=== PATIENT | male | born 1950 | race Caucasian/White ===

== ENCOUNTER 2019-12-22 10:14 | Outpatient (CLI) | payer MEDICARE, SELFPAY ==
--- NOTE | ~2019-12-22 | CT_ITS ---
EXAMINATION: CT lung screening EXAM DATE: 12/22/2019 10:32 INDICATION: Personal history of nicotine dependence. TECHNIQUE: Spiral low dose CT of the chest without contrast. Axial, coronal and sagittal images were reviewed. The dose-length product (DLP) for this examination was 138.63 mGy-cm. The exposure was t ailored according to patient size (auto mA exposure control), and iterative reconstruction (ASIR) was used as additional dose reduction technique. Comparison is made to prior examination from 12/25/2018. FINDINGS: There is moderate emphysema and hyperinflation. Scattered small pleural-based opacities ar e unchanged. No suspicious pulmonary nodules. Tracheobronchial tree is patent. There is no mediast inal, hilar or axillary lymphadenopathy. There are no pleural or pericardial effusions. There is no pneumothorax. Heart normal in size. There is moderate coronary arterial calcification, arteria l sclerosis. Upper abdomen is unremarkable. There is thoracic spondylosis without osteoblastic or o steolytic lesions identified. IMPRESSION: Lung-RADS category 2, benign appearance or behavior (<1% chance of malignancy); recommend continued LDCT screening in 1 year. > Reviewed, dictated and finalized at location A.
== END 2019-12-22 10:15 | disposition home or self-care (01) ==
LOC: ANHIMG 10:16
PROVIDERS: PCP Family Medicine; Visit Provider Family Medicine
DX: Z12.2 Encounter for screening for malignant neoplasm of respiratory organs (principal); Z87.891 Personal history of nicotine dependence
CPT/HCPCS: G0297

== ENCOUNTER 2021-03-23 09:35 | Outpatient (CLI) | payer MEDICARE, SELFPAY ==
[2021-03-23 10:19] LABS: Basophils Absolute Auto 0.1 K/mm3 (0.0-0.1); Basophils Percent Auto 1.1 % (0.2-1.2); Eosinophils Absolute Auto 0.4 K/mm3 (0-0.3); Eosinophils Percent Auto 4.4 % (0-4.4); Hematocrit 47.5 % (42.0-52.0); Hemoglobin 15.9 g/dL (14.0-18.0); Immature Granulocyte Absolute 0.04 K/mm3 (0.00-0.031); Immature Granulocyte Percent A 0.4 % (0-0.5); Lymphocytes Absolute Auto 1.95 K/mm3 (0.9-3.2); Lymphocytes Percent Auto 21.9 % (18.3-44.2); Mean Corpuscular HGB Conc 33.5 g/dl (32-36); Mean Corpuscular Hemoglobin 32.1 pg (26-34); Mean Platelet Volume 9.6 fl (7.4-10.4); Monocytes Absolute Auto 0.8 K/mm3 (0.1-0.6); Monocytes Percent Auto 9.1 % (2.6-8.5); Neutrophils Absolute Auto 5.6 K/mm3 (1.3-6.7); Neutrophils Percent Auto 63.1 % (45.5-73.1); Platelet Count Result 316 k/mm3 (150-375); Red Blood Count 4.95 M/mm3 (4.6-6.20); Red Cell Distribution Width 13.8 % (11.5-14.5); White Blood Count 8.9 K/mm3 (4.5-10.0)
[2021-03-23 10:33] LABS: Alanine Aminotransferase 26 U/L (4-50); Alkaline Phosphatase 86 U/L (38-126); Anion Gap 5 mmol/L (8-16); Aspartate Amino Transferase 26 U/L (17-59); Bilirubin,Total 0.7 mg/dL (0.2-1.3); Blood Urea Nitrogen 21 mg/dL (9-20); Calcium 9.2 mg/dL (8.4-10.2); Carbon Dioxide 29 mmol/L (22-30); Chloride 106 mmol/L (98-107); Cholesterol 187 mg/dL (0-200); Estimated Glomerular Filt Rate > 60; Glucose 106 mg/dL (65-110); HDL Direct 46 mg/dL; Potassium 4.3 mmol/L (3.4-5.0); Sodium 140 mmol/L (137-145); Triglycerides 63 mg/dL (<150)
[2021-03-23 10:46] LABS: LDL Cholesterol Direct 121 mg/dL
[2021-03-23 11:38] LABS: Vitamin D 25 Hydroxy 34.6 ng/mL
[2021-03-23 11:57] LABS: Creatinine Urine 290.4 mg/dL
[2021-03-23 12:00] LABS: MALB Creatinine Ratio 26.8 mg/g (0-30); Microalbumin Urine Random 77.9 mg/L (0-16.7)
== END 2021-03-23 09:36 | disposition home or self-care (01) ==
LOC: ANHLAB 09:40
PROVIDERS: PCP Family Medicine; Visit Provider Nurse Practitioner Family
DX: J44.9 Chronic obstructive pulmonary disease, unspecified (principal); E55.9 Vitamin D deficiency, unspecified; R80.9 Proteinuria, unspecified; Z13.6 Encounter for screening for cardiovascular disorders
CPT/HCPCS: 36415; 80053; 80061; 82043; 82306; 85025

== ENCOUNTER 2022-10-07 16:34 | Emergency (ER) | payer MEDICARE, SELFPAY ==
--- NOTE | ~2022-10-07 | XR_ITS ---
EXAMINATION: XR chest 2V Exam Date/Time: 10/07/2022 16:52 CDT HISTORY: wheezing, copd, 4 day productive cough Comparison: 11/11/2018. RESULT: Lines, tubes, and devices: None. Lungs and pleura: No effusion, pneumothorax, or focal consolidation. Stable mild diffuse reticulonod ular opacities. Hyperinflation. Cardiomediastinal silhouette: Stable. Other: No acute osseous or upper abdominal finding. IMPRESSION: Pulmonary opacities may represent mild bronchiolitis, as can be seen with atypical infection, asthma, aspiration, and small airways disease. Emphysematous change. Reviewed, dictated and finalized at location K. IMPRESSION: Pulmonary opacities may represent mild bronchiolitis, as can be seen with atypi mariia infection, asthma, aspiration, and small airways disease. Emphysematous ruddy nge.
[2022-10-07 16:45] VITALS: BP 137/53; PULSE 82; RESP 16; TEMP 37.4; O2SAT 96
[2022-10-07 16:46] VITALS: BP 137/53; PULSE 82; RESP 16; TEMP 37.4; O2SAT 96
--- NOTE | 2022-10-07 16:52 | ED.URI ---
HPI - URI/Sore Throat General Chief Complaint: Upper Respiratory Infection Stated Complaint: congestion; productive cough Time Seen by Provider: 10/07/22 16:58 Source: patient Mode of arrival: ambulatory Limitations: no limitations History of Present Illness HPI Narrative: 71 y/o male with hx COPD presented for c/o productive cough for 3 days. States his chest is congested and he can hear lung sounds. He traveled to [place] at the onset of symptoms, and returned home today. While out of town, he took Mucinex DM as advised by the pharmacist. Denies dizziness, sob, chest pain, n/v/d/f/c. Patient quit smoking 1 month ago, was 1/2ppd. Related Data Home Medications Medication Instructions Recorded Confirmed albuterol sulfate 90 mcg/actuation inhalation 10/07/22 10/07/22 aerosol inhaler amlodipine 10 mg tablet mg 10/07/22 fluticasone fur. 100 mcg-umeclid inhalation 10/07/22 62.5 mcg-vilant 25 mcg inhalat.powder (Trelegy Ellipta) Allergies Allergy/AdvReac Type Severity Reaction Status Date / Time No Known Allergies Allergy Verified 10/07/22 16:46 Review of Systems Review of Systems: CONSTITUTIONAL: Denies body aches, fever, chills, or sweats. EYES: Denies visual changes, redness, or discharge. ENT: Denies rhinorrhea, congestion, sore throat, or otalgia. CARDIOVASCULAR: Denies chest pain, palpitations, or edema. RESPIRATORY: Reports cough, wheezing. GASTROINTESTINAL: Denies abdominal pain, nausea, vomiting, or diarrhea. GENITOURINARY: Denies dysuria or hematuria. SKIN: Denies rash, itching, or wounds. MUSCULOSKELETAL: Denies back pain, joint pain, or myalgia. NEUROLOGIC: Denies headache, numbness, tingling, or weakness. PSYCH: Denies depression or anxiety. All systems reviewed & are unremarkable except as noted in HPI and below PMFSH Past Medical History Medical History (Updated 10/07/22 @ 17:19 by Barbara Jordan APRN) COPD (chronic obstructive pulmonary disease) Family History Family History Sibling Cancer Cerebrovascular accident Social History Social History Smoking status: Current every day smoker Tobacco type: cigarettes Alcohol intake: never Substance use: never Substance use type: does not use Comments At time of signature, I have reviewed and agree with nursing past medical, surgical, social and family history unless otherwise noted. Please see nursing chart for further information. There is no relevant family history pertinent to the presenting complaint Exam Narrative: GENERAL: Well-appearing, in no acute distress. EYES: EOMI. No redness or drainage. Conjunctivae normal. ENT: Mucous membranes pink and moist. No rhinorrhea. TMs normal bilaterally. Throat normal. Uvula midline. NECK: Normal AROM. Supple. CHEST: No respiratory distress; speaks full sentences Coarse lungs to all thompson and audible crackles HEART: Regular rate and rhythm. No murmur appreciated. ABDOMEN: Soft, nontender, nondistended, normal active bowel sounds. EXTREMITIES: Normal range of motion. No edema. SKIN: Warm, dry, no rash. Capillary refill normal. Normal skin turgor. NEURO: Alert and oriented x3. Gait steady. PSYCH: Normal affect. Course Course Emergency Course: Patient is aware of diagnosis, understands and agrees to treatment plan. Anticipatory guidance given. Patient agrees to follow-up as directed and is aware of reasons to seek care at the emergency department. Portions of this record may have been created with voice recognition software Level of Care: Express Care Visit Vital Signs Vital signs: Vital Signs Temperature 99.3 F 10/07/22 16:45 Pulse Rate 82 10/07/22 16:45 Respiratory Rate 16 10/07/22 16:45 Blood Pressure 137/53 L 10/07/22 16:45 Pulse Oximetry 96 10/07/22 16:45 Oxygen Delivery Room Air 10/07/22 16:45 Temp
== END 2022-10-07 17:23 | disposition home or self-care (01) ==
PROVIDERS: Emergency Provider Nurse Practitioner Family; PCP Family Medicine
DX: R05.1 Acute cough (principal); J44.9 Chronic obstructive pulmonary disease, unspecified; Z87.891 Personal history of nicotine dependence
CPT/HCPCS: 71046; 99213; G0463

== ENCOUNTER 2022-10-30 13:07 | Inpatient (IN) | payer MEDICARE, SELFPAY ==
[2022-10-30] VITALS (70 sets, daily range): BP systolic 55–208; BP diastolic 17–130; PULSE 47–135; RESP 14–49; TEMP 34.1–35.1; O2SAT 66–100; BMI 25.7
--- NOTE | ~2022-10-30 | XR_ITS ---
EXAMINATION: XR chest ET placement INDICATION: Endotracheal tube placement TECHNIQUE: Portable AP chest at 1645 hours COMPARISON: 10/29/2022 FINDINGS: The endotracheal tube ends approximately 10 mm above the rubin. The nasogastric tube is fo llowed as far as the stomach. Its tip is beyond the inferior margin of the radiograph. Patchy bilater al interstitial opacities persist but have improved. No pleural effusion or pneumothorax. The cardiom ediastinal silhouette is normal. IMPRESSION: 1. Endotracheal tube approximately 10 mm above the rubin. Consider repositioning. 2. Mild pulmonary edema with interval improvement. Reviewed, dictated and finalized at location F. IMPRESSION: 1. Endotracheal tube approximately 10 mm above the rubin. Consider repositioni ng. 2. Mild pulmonary edema with interval improvement.
--- NOTE | ~2022-10-30 | XR_ITS ---
Portable chest x-ray Comparison: 10/30/2022 Clinical History: Chest tube placement Findings: Endotracheal tube, NG tube, and left-sided chest tube are in place. Previously noted left pneumothorax appears essentially completely resolved. Mild interstitial prominence noted in the lungs . No pleural effusion. Cardiomediastinal silhouette is stable. Bones and soft tissues are unremarkab le. Impression: Support tubes in place, as above. Left lung is completely reexpanded. No visible pneumothorax at this time. Probable mild chronic interstitial disease or COPD. Reviewed, dictated and finalized at location . Impression: Support tubes in place, as above. Left lung is completely reexpanded. No visible pneumothorax at this time. Probable mild chronic interstitial disease or COPD.
--- NOTE | ~2022-10-30 | XR_ITS ---
XR chest 1V portable DATE: 10/30/2022 14:00 INDICATION: STEMI TECHNIQUE: Portable supine AP chest on 10/30/2022 at 1355 hours COMPARISON: 10/07/2022 2 view chest FINDINGS: Heart size is normal. There is pulmonary vascular congestion and redistribution. There is p rominence of the minor fissure suggesting subpleural edema. There are diffuse bilateral pulmonary inf iltrates which may be due to pulmonary edema or pneumonia. No pneumothorax. There is minimal if any pleural effusion. Aortic calcification. IMPRESSION: Diffuse bilateral pulmonary infiltrates and prominence of the minor fissure, in addition to pulmonary vascular congestion or redistribution, suggesting pulmonary alveolar and subpleural qamar a Reviewed, dictated and finalized at location B. IMPRESSION: Diffuse bilateral pulmonary infiltrates and prominence of the minor fissure, in addition to pulmonary vascular congestion or redistribution, sugge sting pulmonary alveolar and subpleural edema
--- NOTE | ~2022-10-30 | XR_ITS ---
EXAMINATION: XR abdomen NG/feed tube insert INDICATION: OG placement TECHNIQUE: Portable AP KUB-NG at 1446 hours COMPARISON: None available FINDINGS: The OG tube into the stomach which is mildly distended. The lung bases are clear. IMPRESSION: 1. OG tube in the mildly distended stomach. Reviewed, dictated and finalized at location F.
--- NOTE | ~2022-10-30 | XR_ITS ---
EXAMINATION: XR chest ET placement INDICATION: Endotracheal tube repositioning TECHNIQUE: Portable AP chest at 1856 hours COMPARISON: 1645 hours FINDINGS: The tip of the nasogastric tube is at the origin of the right mainstem bronchus. There is a new, small left pneumothorax. There has been interval development of subcutaneous emphysema of the l eft chest wall. Mild pulmonary edema persists without significant change. The heart size is normal. IMPRESSION: 1. Tip of the nasogastric tube in the origin of the right mainstem bronchus. Recommend withdrawing 3 cm. 2. Small left pneumothorax, new. 3. Subcutaneous emphysema of the left chest wall. These findings were discussed with DAVON Luna in the ICU at 1928 hours on 10/30/2022. Reviewed, dictated and finalized at location F. IMPRESSION: 1. Tip of the nasogastric tube in the origin of the right mainstem bronchus. Re commend withdrawing 3 cm. 2. Small left pneumothorax, new. 3. Subcutaneous emphysema of the left chest wall. These findings were discussed with DAVON Luna in the ICU at 1928 hours on 10/31/19 23.
--- NOTE | 2022-10-30 13:07 | ECG_ITS ---
Measurements Intervals [place] Rate: 73 P: 64 RI: 252 QRS: -56 QRSD: 99 T: -54 QT: 426 QTc: 472 Interpretive Statements SINUS RHYTHM WITH FIRST DEGREE AV BLOCK LOW QRS VOLTAGE IN EXTREMITY LEADS [QRS DEFLECTION < 0.5 mV IN LIMB LEADS] ACUTE INFERIOR STEMI COMPARED TO ECG 11/11/2018 00:34:40 SINUS RHYTHM NOW PRESENT ACUTE MO NOW PRESENT Electronically Signed On 10-31-2022 14:07:45 CDT by Kiran Breaux M.D.
--- NOTE | 2022-10-30 13:11 | PM.IMHP ---
H&P: HPI History of Present Illness Date/Time: 10/30/22 13:11 Chief Complaint: chest pain Narrative: this is a 71-year-old man who I am seeing very quickly as he is being prepared for emergency coronary angiography in the setting of acute inferior wall ST-elevation NV. The patient was at his home of [place] and I think a short time ago proper prior to arrival here started to experience retrosternal chest pressure. 911 was called to his home. ECG in the field was clearly diagnostic of acute inferior wall current of injury and emergency STEMI was activated. I reviewed the electrocardiogram in the emergency room and authorized direct transfer from ambulance to the cardiac catheterization lab. In the cardiac catheterization lab he is reporting moderate pressure-like central chest pain as he is being prepared for emergency angiography. He reports no previous history of cardiac problems. He does take medication for hypertension any does have COPD because of cigarette smoking. Review of Systems Review of Systems: ROS unobtainable: Yes unobtainable due to medical condition PMFSH Past Medical History Medical History (Updated 10/30/22 @ 13:16 by Trent Calixto MD) COPD (chronic obstructive pulmonary disease) Family History Family History Sibling Cancer Cerebrovascular accident Social History Social History Smoking status: Current every day smoker Tobacco type: cigarettes Alcohol intake: never Substance use: never Substance use type: does not use Meds Home Medications and Allergies Home Medications Medication Instructions Recorded Confirmed Type albuterol sulfate 90 mcg/actuation inhalation 10/07/22 10/07/22 History aerosol inhaler amlodipine 10 mg tablet mg 10/07/22 History fluticasone fur. 100 mcg-umeclid inhalation 10/07/22 History 62.5 mcg-vilant 25 mcg inhalat.powder (Trelegy Ellipta) levofloxacin 750 mg tablet 750 mg PO DAILY #7 tabs 10/07/22 Rx methylprednisolone 4 mg tablets in See Rx Instructions PO .COMPLEX 10/07/22 Rx a dose pack (Medrol (Jaguar)) #21 ea Allergies Allergy/AdvReac Type Severity Reaction Status Date / Time No Known Allergies Allergy Verified 10/07/22 16:46 Exam Const: Other: Well-developed well-nourished white male appearing his stated age moderate distress with chest pain HENMT: Mouth: Yes moist mucous membranes Eyes: Sclera: sclerae normal Pupils: Equal, round and reactive pupils present Neck: Neck: supple and no JVD Thyroid: thyroid normal Other: carotid pulses are intact bilaterally no bruits are audible over the neck Resp: Effort & Inspection: normal respiratory effort Auscultation: clear to auscultation bilaterally Cardio: Rate: regular rate Rhythm: regular rhythm Other: no murmur no gallop no rub GI: GI Palp: Yes Soft to palpation Auscultation: normal bowel sounds Skin: General skin exam: normal color Extrem: General: normal to inspection Other: normal perfusion, no edema Assessment and Plan Assessment and plan (1) STEMI (ST elevation myocardial infarction): Code(s): I21.3 - ST elevation (STEMI) myocardial infarction of unspecified site Status: Acute Plan 71-year-old man without previous cardiac history presents with chest pain and acute inferior ST-elevation NV. Plans are now being made for emergency angiography and revascularization as indicated by the findings Trent Calixto MD [facility]
[2022-10-30 13:12] LABS: Hematocrit 40.2 % (42.0-52.0); Hemoglobin 13.3 g/dL (14.0-18.0); Mean Corpuscular HGB Conc 33.1 g/dl (32-36); Mean Corpuscular Volume 93.7 fl (80-100); Mean Platelet Volume 9.5 fl (7.4-10.4); Platelet Count Result 380 k/mm3 (150-375); Red Blood Count 4.29 M/mm3 (4.6-6.20); Red Cell Distribution Width 13.6 % (11.5-14.5); White Blood Count 11.8 K/mm3 (4.5-10.0)
--- NOTE | 2022-10-30 13:17 | WPDCARDPROC ---
Cardiac Cath Procedure Note Date of procedure:: 10/30/22 Performing physician:: Trent Calixto MD Indication:: acute inferior wall UT Brief clinical history:: this is a 71-year-old man with no previous cardiac history. He does have COPD and hypertension. The patient began to experience chest pain at home a short time ago and ECG in the field done by EMS was diagnostic of acute inferior wall current of injury. In this setting emergency angiography has been recommended he was taken directly from the ambulance to the cardiac catheterization lab Procedure Procedure performed:: emergency coronary angiography emergency PCI(SERVANDO) to the right coronary artery left ventriculogram Sedation/Medication given:: fentanyl 25 mg Versed 2 mg case start time 12 30 p.m. case end time 12:57 p.m. sedation provided by Deobrah Regalado RN, trained observer Access site:: right femoral artery Estimated blood loss:: 20 cc Procedure note:: patient was brought to the cardiac catheterization lab in the emergency setting described above. The right femoral triangle was prepared and draped in the usual fashion. Anesthesia was provided with 1% lidocaine infiltrated locally. Using the modified Seldinger technique the femoral artery was punctured and a 6 Israeli vascular sheath was placed. I then used a 5 Israeli FL4 diagnostic catheter to engage inject the left coronary artery in multiple projections. Following this the right coronary artery was engaged and injected using a 6 Israeli JR4 guiding catheter. Following this the cineangiograms were then reviewed and PCI of the occluded right coronary artery was recommended and carried out as detailed below. Prior to PCI the patient did receive 180 mg of p.o. Brilinta. Immediately after restoring flow in the occluded right coronary artery the patient did become nauseated and vomit after which he also developed ventricular fibrillation which had to be terminated by electrical cardioversion. PCI was then completed as detailed below. Following this the guiding catheter guidewire and balloon was removed and a 5 Israeli angled pigtail catheter was used to measure left-sided hemodynamics and to inject left ventriculogram in the LARA projection. Following this the sheath was sutured into position and plans are made for transfer to the patient to the ICU for post UT PCI recovery. Prior to leaving the cardiac catheterization lab the patient developed ventricular fibrillation twice and sustained ventricular tachycardia once requiring 3 additional cardioversions. IV amiodarone was started with a bolus of 150 mg with the intention to starting the amiodarone drip down stairs. The patient also received 5 mg of IV metoprolol and 100 mg of IV lidocaine IV push. The patient was awake alert conversant not reporting any significant chest pain at the end of the procedure despite the significant ventricular irritability detailed above. Other than the arrhythmias the procedure was uncomplicated. Findings:: Hemodynamics: Central aortic pressure is 124 over 56 left ventricle 124/5 end-diastolic pressure 14 there was no gradient across the aortic valve noted upon pullback. Left ventricle: The left ventricle is normal in size. During the LV-gram there was significant ventricular irritability during the sinus beats contractility looks to be well preserved in all segments with mild inferior hypokinesia but overall good ejection fraction of 60%. The left main coronary artery is nicely patent the left anterior descending is a moderate to large caliber artery extending down to around the apex. There is mild plaquing in the mid LAD but representing no more than about 20-30% stenosis. The circumflex is a medium caliber vessel giving rise to several marginal branches. There is a discrete high-grade 95% stenosis between the 1st and 2nd marginal branches. There was URVASHI 3 flow in the circumflex however. The right coron
[2022-10-30 13:19] LABS: Alanine Aminotransferase 28 U/L (6-50); Albumin Level 3.9 g/dL (3.5-5.1); Alkaline Phosphatase 109 U/L (38-126); Anion Gap 6 mmol/L (8-16); Aspartate Amino Transferase 25 U/L (17-59); Bilirubin,Total 0.5 mg/dL (0.2-1.3); Blood Urea Nitrogen 21 mg/dL (9-20); Calcium 8.7 mg/dL (8.4-10.2); Carbon Dioxide 27 mmol/L (22-30); Chloride 104 mmol/L (98-107); Cholesterol 172 mg/dL (0-200); Estimated Glomerular Filt Rate > 60; Glucose 152 mg/dL (65-110); HDL Direct 41 mg/dL; Potassium 3.9 mmol/L (3.4-5.0); Sodium 137 mmol/L (137-145); Triglycerides 68 mg/dL (<150)
[2022-10-30 13:30] LABS: LDL Cholesterol Direct 115 mg/dL
[2022-10-30 13:37] LABS: Magnesium 1.9 mg/dL (1.6-2.3)
--- NOTE | 2022-10-30 13:39 | ADMIMU ---
This patient, Hoang Marinelli, was admitted to IMU status, and placed in Intensive Care Unit-5. Patient/family oriented to hospital policies and general routines including ID bracelet, bed and alarms, visiting hours, pain management, procedures, bathroom and other care routines, personal items, smoking policy, room service/diet, and visiting hours. Valuables list has been completed. Information on how to activate the Rapid Response Team has been discussed. Patient/Family are encouraged to report perceived risks to care and to ask questions if they do not understand what they are told or what they should do.
[2022-10-30] MEDS: SODIUM CHLORIDE 0.9% IV 500 ML 999 ML IV CONT ×2 (13:40→22:28)
[2022-10-30] MEDS: AMIODARONE 360 MG/D5W 200 ML 360 MG/200 ML BAG 33.33 MG IV CONT (13:40)
--- NOTE | 2022-10-30 13:40 | WPDCNINT ---
Assessment and Plan Assessment and plan (1) STEMI (ST elevation myocardial infarction): Code(s): I21.3 - ST elevation (STEMI) myocardial infarction of unspecified site Status: Acute Assessment and Plan: 10/30/2022: Patient presented to the ED with complaints of substernal chest pain, was taken directly to the cardiac brush clearing laborer where he had a PTCA/PCI with SERVANDO x1 to mid RCA. Patient also has a high-grade 95% stenosis in the circumflex between the 1st and 2nd marginal branches. Mild inferior hypokinesia with overall good ejection fraction of 60%. - Postprocedure patient had a VFib arrest, was defibrillated x1.? He given to monomorphic VT which resolved before any intervention.? I went up brush clearing laborer to assess the patient, he again had a VFib arrest and was defibrillated with sinus rhythm.? Patient was started on amiodarone bolus, received metoprolol 5 mg IV x1 and lidocaine 100 mg IV x1.? -continue aspirin, metoprolol, rosuvastatin, ticagrelor -cardiology following the patient -patient is on amiodarone infusion for the VFib and V-tach episodes likely secondary to reperfusion injury -continue to monitor in ICU (2) COPD (chronic obstructive pulmonary disease): Code(s): J44.9 - Chronic obstructive pulmonary disease, unspecified Status: Acute Assessment and Plan: Patient has a history of COPD likely secondary to history of tobacco use -will start Xopenex, Atrovent -continue Trelegy Ellipta nebulizers, which he takes at home (3) Essential hypertension: Code(s): I10 - Essential (primary) hypertension Status: Acute Assessment and Plan: Continue metoprolol (4) Tobacco use: Code(s): Z72.0 - Tobacco use Status: Acute Assessment and Plan: Discussed with patient regarding tobacco cessation (5) Ventricular fibrillation: Code(s): I49.01 - Ventricular fibrillation Status: Acute Assessment and Plan: Patient had episodes of VFib and monomorphic V-tach post cardiac catheterization, received cardioversion x2, amiodarone bolus, lidocaine 100 mg IV x1 and metoprolol 5 mg IV x1. -continue amiodarone infusion -discussed with cardiology. Plan DVT prophylaxis: Patient status post cardiac catheterization Stress ulcer prophylaxis: Not indicated Nutrition: Heart healthy diet Code Status: Full code Critical Care Time Spent: 49 minutes Due to a high probability of clinically significant, life threatening deterioration, the patient required my highest level of preparedness to intervene emergently and I personally spent this critical care time directly and personally managing the patient. This critical care time included obtaining a history; examining the patient; pulse oximetry; ordering and review of studies; arranging urgent treatment with development of a management plan; evaluation of patient's response to treatment; frequent reassessment; and discussions with other providers. It was exclusive of separately billable procedures and treating other patients and teaching time. Please see Assessment and Plan section and the rest of the note for further information on patient assessment and treatment This dictation may have been done utilizing a voice recognition system. Attempts have been made to correct errors. However, there may be uncorrected grammatical, spelling, and recognitions errors present. Director Of Solutions Architecture Consult Note Consult date: 10/30/22 Reason for consult: Acute inferior ST-elevation [place] status post SERVANDO x1 to mid RCA. Patient also has a high-grade 95% stenosis in the circumflex between the 1st and the 2nd marginal branches. Mild inferior hypokinesia with overall good ejection fraction of 60% HPI: Hoang Marinelli is a 71 year old male with history of essential hypertension, tobacco abuse, COPD presented the ED on 10/30/2022 with complains of substernal chest pain/pressure short time prior to arrival. 911 was called, EKG in the field was diagnostic of acute inf
--- NOTE | 2022-10-30 14:08 | ADMGEN ---
This patient, Hoang Marinelli, was admitted to Intensive Care Unit-5. Patient/family oriented to hospital policies and general routines including ID bracelet, bed and alarms, visiting hours, pain management, procedures, bathroom and other care routines, personal items, smoking policy, room service/diet, and visiting hours. Information on how to activate the Rapid Response Team has been discussed. Patient/Family are encouraged to report perceived risks to care and to ask questions if they do not understand what they are told or what they should do.
[2022-10-30] MEDS: SODIUM CHLORIDE 0.9% IV 1,000 ML 125 ML IV CONT (14:16)
[2022-10-30] MEDS: MAGNESIUM SULF 2 GM/WATER 50ML 2 GM/50 ML BAG IVPB (14:17)
[2022-10-30] MEDS: IPRATROPIUM BR 0.02% INH SOLN 0.5 MG/2.5 ML VIAL INHALATION (14:51)
[2022-10-30] MEDS: LEVALBUTEROL NEB 1.25 MG/3 ML INHALATION (14:51)
--- NOTE | 2022-10-30 16:35 | PC.NURSE ---
Pt's heart rhythm noticed on patient monitor by RN to be T[employer]. This RN, ore charger and another RN to room. Pt shocked once with 200j and rhythm changed to Vfib. Code Blue called. See code sheet.
--- NOTE | 2022-10-30 16:45 | PC.NURSE ---
Pt to incinerator plant laborer post code. Pt intubated at this time
--- NOTE | 2022-10-30 16:51 | P.PCNBED_ITS ---
Procedures Intubation Intubation Date: 10/30/22 Intubation Time: 16:28 Sedative: etomidate (20) Paralytic: rocuronium (40) Laryngoscope: fiber optic video scope Assist device used: fiber optic device ET tube size: 7.5 Tube secured depth (cm): 27 Tube secured location: lips Tube placement confirmation: visualized tube passing through cords, equal breath sounds bilaterally, no breath sounds over epigastrium and confirmation by capnometry Patient tolerated procedure: well Intubation complications: none Additional comments: the patient was also given 5 mg of versed prior to intubation as the patient was fighting the staff xray shows that the et tube is 10 mm above the rubin and consider repositioning. the patient coded once again and was taken to the research laboratory technician where he coded again.
[2022-10-30 17:13] LABS: Troponin I 0.943 ng/mL (0.000-0.034)
[2022-10-30] MEDS: EPTIFIBATIDE 0.75 MG/ML 75 MG/100 ML VIAL 12.67 MG IV CONT (18:15)
--- NOTE | 2022-10-30 18:15 | ECG_ITS ---
Measurements Intervals [place] Rate: 126 P: ID: 0 QRS: 10 QRSD: 97 T: -57 QT: 335 QTc: 486 Interpretive Statements PROBABLE ATRIAL FIBRILLATION WITH RAPID VENTRICULAR RESPONSE LOW QRS VOLTAGE [QRS DEFLECTION < 0.5/1.0 mV IN LIMB/CHEST LEADS] POSSIBLE ANTERIOR MYOCARDIAL INFARCTION [30 ms Q WAVE IN V3/V4, OR R < 0.2 mV IN V4], OF INDETERMINATE AGE INFERIOR MYOCARDIAL INFARCTION [40+ ms Q WAVE AND/OR ST/T ABNORMALITY IN II/aVF], PROBABLY RECENT ACUTE [place] INTERPRETATION BASED ON A DEFAULT AGE OF 40 YEARS COMPARED TO ECG 10/30/2022 16:41:06 ATRIAL FIBRILLATION NOW PRESENT Electronically Signed On 10-31-2022 14:09:58 CDT by Kiran Breaux M.D.
--- NOTE | 2022-10-30 18:20 | WPDCARDPROC ---
Cardiac Cath Procedure Note Date of procedure:: 10/30/22 Performing physician:: Trent Calixto MD Indication:: ventricular fibrillation arrest following emergency PCI earlier today Brief clinical history:: this is a 71-year-old man who presented earlier today with acute inferior wall IA. He underwent emergency PCI with drug-eluting stent to the mid RCA with angiographically a good result. Since then he has had several cardiac arrest marked by ventricular fibrillation/ ventricular tachycardia. Most recently he had an arrest which appears to be initiated by polymorphic ventricular tachycardia. He does have recurrent significant inferior ST elevation and for that reason is being brought back for angiographic assessment. Procedure Procedure performed:: Emergency right coronary angiography emergency repeat PCI to right coronary artery including extraction thrombectomy, balloon angioplasty and additional stenting. placement of intra-aortic balloon pump Sedation/Medication given:: No sedation Access site:: existing right femoral artery sheath Estimated blood loss:: 50 cc Procedure note:: patient was brought to the cardiac catheterization lab in the emergent setting described above. The right femoral area was prepped and draped in the sterile fashion. The suture was cut and the previous sheath was exchanged over the guidewire for a clean 6 Qatari arterial sheath. Following this gloves were changed. I used a 5 Qatari JR4 catheter to engage and inject the right coronary artery. It was noted to be totally occluded in the stented segment. Angiographic appearance was that of a abrupt thrombotic occlusion. Following this plans were made for emergency PCI. The diagnostic catheter was exchanged for a JR4 6 Qatari guiding catheter. The RCA was easily traversed using a for BMW wire. I used the penumbra extraction thrombectomy catheter which advanced to the proximal region of the stent but not through the entire stent. This restored URVASHI 1-2 flow in the artery. It obvious there was a good deal of thrombus in the stented area. Following this I redilated the entire area using a 3.5 x 20 mm compliant balloon restoring URVASHI 3 flow into the RCA. Distal to the stent in the 3rd portion of the artery there was smooth high-grade stenosis which was felt to likely be spasm. This persisted during the case despite episcopal of flow in the artery. Because of hypotension/ shock we could not administer nitroglycerin. I then elected to place a 2nd 3.5 x 30 mm Orsiro stent in that segment which resulted in excellent patency. Following this I used the penumbra catheter again to traverse the proximal stent this time with better success and then post dilated the original stent using a 3.75 x 15 mm high-pressure balloon at 18 atmospheres. At the end of the procedure there was good patency with URVASHI 3 flow in the entire right coronary artery restored. The patient received 2 doses of Jean Paul-Synephrine during the procedure for hypotension and is now receiving a bolus of normal saline. Findings:: As above Conclusion:: 1. coronary artery disease with acute inferior wall infarction treated earlier today with stenting of the mid RCA. Patient now has suffered an abrupt stent thrombosis and has just undergone emergency repeat revascularization involving extraction thrombectomy, PTCA larger and then high-pressure balloon as well as additional stenting distal to the original device as detailed above. Because of hypotension/ shock intra-aortic balloon pump was placed at the end of procedure. Patient is receiving large boluses of saline with the concept that RV infarction is playing a role. Prognosis at this time is grave/guarded Trent Calixto MD [facility]
--- NOTE | 2022-10-30 18:54 | PC.NURSE ---
Pt returned from biological lab technician with balloon pump in place
[2022-10-30] MEDS: AMIODARONE 360 MG/D5W 200 ML 360 MG/200 ML BAG 16.67 MG IV CONT (19:00)
[2022-10-30] MEDS: MIDAZOLAM HCL (*CRX) 2 MG/2 ML VIAL IV PUSH ×2 (19:05→20:40)
--- NOTE | 2022-10-30 19:23 | PCRCNOTE ---
RT arrived at code at 1620. RT assisted with intubation. Patient was intubated with size 7.5 ETT at 27 cm at lip. CO2 detected color change, Chest x-ray ordered. ETT palmer placed to secure ETT at 27 cm at lip. Patient placed on vent according to Dr. Izaguirre order, CMV Vt 500, R18, peep 5, 100%, titrate oxygen to keep SpO2 >92%. RN did not detect a pulse, CPR in progress. RT bagged patient via AMBU bag during CPR. RT then assisted patient to Cardiac construction laborer to monitor patient while on the vent. RN did not detect a pulse on patient. RT bagged patient via AMBU bag during CPR. Pulse detected. RT assisted patient back to ICU 5 via vent.
[2022-10-30 19:56] LABS: Alveolar/Arterial O2 Gradient 354.8 mmHg; Base Excess ABG -8.3 mEq/l (+/-2.0); Fractional Inspired Oxygen 100 %; HCO3 ABG 18.8 mEq/l (22.0-26.0); Oxygen Content ABG 17.1 %vol (16.0-22.0); Oxygen Saturation ABG 99.6 % (95.0-100.0); Oxyhemoglobin 98.2 % THb (90.0-100.0); PCO2 ABG 44.6 mmHg (35.0-45.0); PO2 ABG 313.6 mmHg (80.0-100.0); PO2 FiO2 Ratio Arterial Blood 3.14 %; Total Hemoglobin 11.8 g/dL (12.0-18.0)
[2022-10-30 19:57] LABS: Device VENTILATOR; Site Drawn LEFT FEMORAL; pH ABG 7.242 (7.350-7.450)
[2022-10-30 19:58] LABS: Arterial Blood Gas PEEP 5 cmH2O; Arterial Blood Gas Tidal Volume 500 ml; Arterial Blood Gas Vent Mode CMV; Arterial Blood Gas Ventilator rate 18 /MIN
[2022-10-30] MEDS: NOREPINEPHRINE 8 MG/D5W 250 ML 8 MG/250 ML BAG 9.38 MG IV CONT (20:00)
[2022-10-30] MEDS: MIDAZOLAM 100MG/NS 100ML(*CRX) 100 MG/100 ML BAG IV CONT (20:11)
--- NOTE | 2022-10-30 20:23 | WPDPROCEDUR ---
Procedures Central Line Placement Left Femoral: Central Line Date: 10/30/22 Central Line Time: 20:15 Discussed w/ the patient/family/POA,the placement of a central venous catheter, including its clinical necessity/indication & associated potential risks, benifits and alternatives.: Yes The patient/family/POA understand(s) and acknowledge(s) the need to proceed with central venous catheter insertion as an important element of the patient's clinical management.: Yes Consent: I have discussed with the patient and/or surrogate, the non-emergent placement of a central venous catheter, including its clinical necessity/indication and associated potential risks and complications. The patient and/or surrogate understand(s) and acknowledge(s) the need to proceed with central venous catheter insertion as an important element of the patient's clinical management. Time Out Performed: Yes Patient Position: supine Provider Prep: mask and Max. sterile barrier precautions Central line prep: 2% Chlorhexidine scrub Local anesthesia used: lidocaine 1% Amount of anesthesia used (ml): 5 Sterile US Technique with sterile gel/sterile probe covers: Yes Central line lumen inserted: triple Amharic: 7 Length (cm): 16 Depth of Insertion (cm): 16 Post Procedure: sutured in place, good blood return, all ports aspirated, flushed, capped, transparent dressing and hemostatic product Additional comments: no need for x ray as it was femoral
--- NOTE | 2022-10-30 20:25 | PM.CCN ---
Critical Care Event Note Summary Code activated: No Narrative: the patient's bp dropped and the patient needed a central line.the patient was very restless throughout the procedure and needed iv sedation. Dr. Mariano at the bedside . This case had a high probability of a clinically significant, sudden, or life threatening deterioration of this patient's condition which required my full and direct attention, intervention and personal management. Critical care time: less than 30 mins
[2022-10-30 20:41] LABS: Hematocrit 36.1 % (42.0-52.0); Hemoglobin 11.4 g/dL (14.0-18.0); Mean Corpuscular HGB Conc 31.6 g/dl (32-36); Mean Corpuscular Hemoglobin 31.3 pg (26-34); Mean Corpuscular Volume 99.2 fl (80-100); Mean Platelet Volume 9.1 fl (7.4-10.4); Platelet Count Result 308 k/mm3 (150-375); Red Blood Count 3.64 M/mm3 (4.6-6.20); Red Cell Distribution Width 13.8 % (11.5-14.5); White Blood Count 19.4 K/mm3 (4.5-10.0)
[2022-10-30 20:54] LABS: INR 2.2; Prothrombin Time 25.8 Seconds (11.1-14.7)
[2022-10-30] MEDS: PANTOPRAZOLE SODIUM IV 40 MG VIAL IV PUSH (20:58)
[2022-10-30] MEDS: FENTANYL 2,500MCG/NS250ML(*CRX 2,500 MCG/250 ML BAG IV CONT (21:00)
[2022-10-30] MEDS: SODIUM BICARBONATE 8.4% 50 MEQ/50 ML SYRINGE 100 MEQ IV PUSH (21:15)
[2022-10-30 21:16] LABS: Lactic Acid Reflex 3.7 mmol/L (0.7-2.0)
[2022-10-30 21:34] LABS: Alanine Aminotransferase 94 U/L (6-50); Albumin Level 2.8 g/dL (3.5-5.1); Alkaline Phosphatase 80 U/L (38-126); Anion Gap 5 mmol/L (8-16); Aspartate Amino Transferase 294 U/L (17-59); Bilirubin,Total 0.5 mg/dL (0.2-1.3); Blood Urea Nitrogen 21 mg/dL (9-20); Calcium 6.7 mg/dL (8.4-10.2); Carbon Dioxide 27 mmol/L (22-30); Chloride 106 mmol/L (98-107); Estimated CRCL calculation 45 ml/min; Estimated Glomerular Filt Rate 54; Glucose 287 mg/dL (65-110); Magnesium 3.2 mg/dL (1.6-2.3); Potassium 4.3 mmol/L (3.4-5.0); Sodium 138 mmol/L (137-145)
[2022-10-30] MEDS: CALCIUM GLUC 2,000 MG/NS 100ML 2,000 MG/100 ML BAG 100 MG IVPB (22:28)
[2022-10-30] MEDS: CENTRAL LINE FLUSH 10 ML IV PUSH (22:44)
[2022-10-30] MEDS: SODIUM CHLORIDE 0.9% IV 1,000 ML 100 ML IV CONT (23:18)
--- NOTE | 2022-10-30 23:27 | P.OP_ITS ---
Procedures Other Procedures Procedure 1: Other Procedure: At 1628 KYE ROJAS was called in the ICU. The patient had gone into torsades de point and patient was shocked by nursing staff and given epinephrine. Upon my arrival in the ICU. Patient was in V. tach. Patient continued to receive ep inephrine and chest compressions. When compressions were stopped patient was in V-fib and patient was defibrillated into a spontaneous sinus rhythm that was a rate of 60. During the CODE BLUE the patient received 2 mg of magnesium sulfate as well as an amp of bicarb. There is persistent ST elevation and according to the nursing staff this has been constant since being in the ICU. While repeat EKG was being performed I discussed case with Dr. Birmingham to update him on the patient's condition. He was going to call Dr. Calixto and have him come to the ER to evaluate the patient. Patient beginning to wake up and is fighting nursing staff but does not understand what is occurring. Due to critical nature of illness and combativeness patient was given 5 of Versed and then intubated by Elida Griggs SERVICE SUPERVISOR. Please see separate procedure note. Dr. Calixto came to the bedside and is felt patient's symptoms and EKG warrant emergent evaluation Credit Processor. Upon arrival to Credit Processor patient had brief loss of pulses as well but was successfully resuscitated again with compressions. I had a prolonged conversation with the patient's [id number] who is a ICU nurse as well as the patient's . We discussed the critical nature of the patient's condition and Dr. Calixto also participated in this conversation. Please see KYE BLUE sheet for additional details of participants and drugs given. Exam: GENERAL: ill-appearing, well-nourished, unresponsive with chest compressions in progress. HEAD: Normocephalic, atraumatic. ENT: Mucous membranes moist. NECK: Supple. CHEST: No spontaneous respiratory effort upon initial evaluation patient being bagged with clear breath sounds bilaterally.. HEART: Pulseless with palpable central pulses during CPR. ABDOMEN: Soft, nontender, nondistended. EXTREMITIES: No deformity of the extremities. There is a femoral sheath still connected to the right groin. SKIN: Warm, dry, no rash. NEURO: Unresponsive upon initial exam. Care: 60 minutes of critical care was provided and did not include procedures performed. Diagnosis: Cardiopulmonary arrest, STEMI, torsades the point, V-fib arrest Patient michael in the ICU in critical condition.
[2022-10-30 23:37] LABS: Reflex Lactic Acid Yes or No Add Lactic
[2022-10-31] VITALS (63 sets, daily range): BP systolic 80–121; BP diastolic 53–88; PULSE 70–105; RESP 12–28; TEMP 35.3–37.2; O2SAT 94–100
--- NOTE | 2022-10-31 | ECHOL_ITS ---
Patient Info Name: Hoang Marinelli Age: 71 years : 1950 Gender: Male Ht: 69 in Wt: 188 lbs BSA: 2.05 m2 HR: 104 bpm BP: 106 / 63 mmHg Heart Rhythm: Tachycardia Technical Quality: Fair Exam Date: 10/31/2022 8:56 AM Exam Location: [facility] Patient Status: Inpatient Admit Date: 10/30/2022 Staff Ordering Physician: Paul Dempsey MD Calibration Technician: Mark Marshall RDCS Attending Provider: Trent Calixto MD Exam Type: CA echo limited Study Info Indications - CARDIAC ARREST Limited two-dimensional transthoracic echocardiogram is performed. Summary 1. A limited study was done. 2. Left ventricular chamber dimension is normal. 3. Left ventricular systolic function appears to be mildly reduced, estimated at 40-45%. 4. Right ventricular chamber dimension is normal. 5. Right ventricular systolic function is reduced. 6. There is trivial pericardial effusion. Recommendations * Recommend a complete study for better evaluation of left and right ventricular systolic function and for assessment of valves. Left Ventricle Left ventricular chamber dimension is normal. Left ventricular systolic function appears to be mildly reduced, estimated at 40-45%. Right Ventricle Right ventricular chamber dimension is normal. Right ventricular systolic function is reduced. Left Atria Left atrial chamber dimension is normal. Right Atria Right atrial chamber dimension is normal. Atrial Septum Interatrial septum not well visualized. Aortic Valve The aortic valve is not well visualized. Pulmonic Valve The pulmonic valve is not well visualized. Mitral Valve The mitral valve has not well visualized. Tricuspid Valve There is trace tricuspid valve regurgitation. Pericardium/Pleural There is trivial pericardial effusion. Inferior Vena Cava Normal inferior vena cava with <50% collapse upon inspiration consistent with elevated right atrial pressure, 8 mmHg. Aorta The aortic root is not well visualized. Tricuspid Valve Name Value Normal Estimated PAP/RSVP RA Pressure 8 mmHg <=5 Report Signatures
[2022-10-31] MEDS: EPTIFIBATIDE 0.75 MG/ML 75 MG/100 ML VIAL 12.67 MG IV CONT ×2 (00:13→08:02)
[2022-10-31] MEDS: MINERAL OIL/WHITE PETROLATUM OINTMENT 1 APPLIC EACH EYE ×2 (00:19→08:01)
--- NOTE | 2022-10-31 00:24 | PM.CNGS ---
Assessment and Plan Assessment and plan (1) Pneumothorax: Code(s): J93.9 - Pneumothorax, unspecified Status: Acute Assessment and Plan: discussed with family emergent placement of left-sided chest tube, they wished to proceed at this time proceed with procedure at bedside (2) STEMI (ST elevation myocardial infarction): Code(s): I21.3 - ST elevation (STEMI) myocardial infarction of unspecified site Status: Acute Assessment and Plan: has coded twice today, now with balloon pump, management per ICU team and Cardiology History of Present Illness Consult details Consult date: 10/31/22 Reason for consult: chest tube Requesting physician: Kb Birmingham MD Narrative: The patient is a 71-year-old male that is critically ill in the ICU currently intubated and sedated. The patient apparently has coded multiple times today and has had of urgent cardiac catheterization x2. Patient is currently on pressors and is critically ill. Surgery has been consulted because of a left pneumothorax. I did discuss placement of chest tube with the patient's family and they wished to proceed. Review of Systems Review of Systems: ROS unobtainable: Yes unobtainable due to endotracheal tube and unobtainable due to medical condition PMFSH Past Medical History Medical History COPD (chronic obstructive pulmonary disease) Family History Family History Sibling Cancer Cerebrovascular accident Social History Social History Smoking packs per day: 1 Smoking cigarettes per day: 20.0 Years smoked: 50 Smoking pack-years: 50.00 Smoking status: Current every day smoker Tobacco type: cigarettes Alcohol intake: never Substance use: never Substance use type: does not use Lack of Transportation: No Lack of Food: Never True Current Housing: I Have Housing Concerned About Future Housing: No Difficulty Paying Gas/Electric Bills: No Difficulty Paying for Meds: No Currently Unemployed: No Education: High School Diploma/GED Difficulty w/ Childcare or Family Care: No Spiritual care concerns: No Meds Home Medications and Allergies Home Medications Medication Instructions Recorded Confirmed Type albuterol sulfate 90 mcg/actuation 1 puff inhalation 4-6XD PRN 10/07/22 10/30/22 History aerosol inhaler Shortness Of Breath amlodipine 10 mg tablet 10 mg PO DAILY 10/07/22 10/30/22 History fluticasone fur. 100 mcg-umeclid 1 ea inhalation DAILY 10/07/22 10/30/22 History 62.5 mcg-vilant 25 mcg inhalat.powder (Trelegy Ellipta) Allergies Allergy/AdvReac Type Severity Reaction Status Date / Time No Known Allergies Allergy Verified 10/07/22 16:46 Vital Signs Vital Signs - 24 hr 10/30/22 13:52 10/30/22 13:40 10/30/22 14:00 Temperature Pulse Rate 69 Respiratory Rate 24 H Blood Pressure 79/61 L 79/61 L 100/70 Pulse Oximetry 89 L Oxygen Delivery Oxygen Flow Rate Fraction of Inspired Oxygen 10/30/22 14:13 10/30/22 14:54 10/30/22 14:57 Temperature Pulse Rate 71 79 Respiratory Rate 22 H 15 Blood Pressure 100/70 Pulse Oximetry 98 97 Oxygen Delivery Nasal Cannula Oxygen Flow Rate 1 Fraction of Inspired Oxygen 24 10/30/22 13:38 10/30/22 14:00 10/30/22 15:06 Temperature Pulse Rate 78 Respiratory Rate 14 Blood Pressure Pulse Oximetry 88 L 98 Oxygen Delivery Nasal Cannula Nasal Cannula Oxygen Flow Rate 2 1 Fraction of Inspired Oxygen 10/30/22 14:00 10/30/22 13:38 10/30/22 13:39 Temperature Pulse Rate 79 65 67 Respiratory Rate 24 H 24 H Blood Pressure 65/47 L 65/55 L Pulse Oximetry Oxygen Delivery Oxygen Flow Rate Fraction of Inspired Oxygen 10/30/22 13:40 10/30/22 13:41 10/30/22 13:45 Temperature Pulse Rate 66 69 7
--- NOTE | 2022-10-31 00:30 | P.OP_ITS ---
Procedure Note - Detailed Date of Procedure 10/31/22 Pre-op Diagnosis left pneumothorax Post-op Diagnosis Same Procedure Performed placement of 20 Sammarinese left-sided chest Surgeon Amber Martin MD Anesthesia Local Indications 71-year-old male currently intubated and sedated in the ICU after code blue x2 and cardiac catheterization. Patient now found to have left-sided pneumothorax. Findings Left-sided pneumothorax with gush of air upon entering the left pleural space Description of Procedure The patient was placed in the supine position. He was then prepped and draped in the normal sterile fashion. A time-out was then done to verify the patient's identity as well as the procedure being performed. I began by making an incision at the level of the nipple in the mid axillary line on the left. This incision was carried to the level of the ribs. I then used a curved Kristin clamp to gain access into the pleural space at the level of the 4th intercostal space. Immediately a gush of air was audible upon gaining access into the pleural space. I then proceeded to place the 20 Sammarinese chest tube into the left pleural space. I directed the chest tube both posteriorly and superiorly. After abel quate positioning was noted, the chest tube was secured into position by using a 2 0 silk suture. Vaseline gauze and sterile dressing were then placed. The chest tube was placed to the atrium. A chest x-ray will be done in the ICU. Implants Left 20 Sammarinese chest tube Estimated Blood Loss 5 Complications No immediate complications Condition Critical Disposition ICU [facility] Billing Surgery - Charge Forward: Surgery Billing
[2022-10-31] MEDS: PANTOPRAZOLE SODIUM IV 80 MG in SODIUM CHLORIDE 0.9% IV 500 ML 50 MG IV CONT ×2 (00:47→08:01)
[2022-10-31 00:49] LABS: Lactic Acid 3.5 mmol/L (0.7-2.0)
[2022-10-31 01:27] LABS: Glucose Point of Care 265 mg/dl (65-105)
[2022-10-31] MEDS: IPRATROPIUM BR 0.02% INH SOLN 0.5 MG/2.5 ML VIAL INHALATION ×3 (02:20→13:48)
[2022-10-31] MEDS: LEVALBUTEROL NEB 1.25 MG/3 ML INHALATION ×3 (02:20→13:48)
--- NOTE | 2022-10-31 02:20 | PCRCNOTE ---
Window of time for administration has passed. See next scheduled administration.
[2022-10-31] MEDS: AMIODARONE 360 MG/D5W 200 ML 360 MG/200 ML BAG 33.33 MG IV CONT ×3 (02:29→14:16)
[2022-10-31 02:42] LABS: Hematocrit 31.2 % (42.0-52.0); Hemoglobin 9.9 g/dL (14.0-18.0); Mean Corpuscular HGB Conc 31.7 g/dl (32-36); Mean Corpuscular Hemoglobin 31.3 pg (26-34); Mean Corpuscular Volume 98.7 fl (80-100); Mean Platelet Volume 9.3 fl (7.4-10.4); Platelet Count Result 266 k/mm3 (150-375); Red Blood Count 3.16 M/mm3 (4.6-6.20)
[2022-10-31 02:57] LABS: INR 1.2; Prothrombin Time 15.9 Seconds (11.1-14.7)
[2022-10-31 02:58] LABS: Fibrinogen 371 mg/dl (215-510); Partial Thromboplastin Time 41.8 SECONDS (22.3-36.8)
[2022-10-31 03:12] LABS: Alanine Aminotransferase 109 U/L (6-50); Albumin Level 2.9 g/dL (3.5-5.1); Alkaline Phosphatase 70 U/L (38-126); Anion Gap 3 mmol/L (8-16); Aspartate Amino Transferase 437 U/L (17-59); Bilirubin,Total 0.3 mg/dL (0.2-1.3); Blood Urea Nitrogen 23 mg/dL (9-20); Calcium 7.2 mg/dL (8.4-10.2); Carbon Dioxide 30 mmol/L (22-30); Chloride 105 mmol/L (98-107); Estimated CRCL calculation 42 ml/min; Estimated Glomerular Filt Rate 50; Glucose 221 mg/dL (65-110); Magnesium 2.8 mg/dL (1.6-2.3); Phosphorus 4.3 mg/dL (2.5-4.5); Potassium 4.4 mmol/L (3.4-5.0); Sodium 138 mmol/L (137-145)
[2022-10-31 03:13] LABS: Band Neutrophils Percent 11 % (0-6); Monocytes Percent Manual 2 % (3-9); Neutrophils Percent Manual 86 % (46-73); Platelet Estimate Adequate (Adequate); Schistocytes None Seen (NORMAL); Total Cells Counted 100
[2022-10-31] MEDS: NOREPINEPHRINE 8 MG/D5W 250 ML 8 MG/250 ML BAG 28.13 MG IV CONT (04:28)
[2022-10-31 04:47] LABS: Glucose Point of Care 185 mg/dl (65-105)
--- NOTE | 2022-10-31 05:11 | ECG_ITS ---
Measurements Intervals [place] Rate: 94 P: 81 [place]: 149 QRS: -22 QRSD: 86 T: 80 QT: 323 QTc: 404 Interpretive Statements SINUS RHYTHM LOW QRS VOLTAGE [QRS DEFLECTION < 0.5/1.0 mV IN LIMB/CHEST LEADS] INFERIOR MYOCARDIAL INFARCTION [30 ms Q WAVE IN II/aVF], OF INDETERMINATE AGE COMPARED TO ECG 10/30/2022 19:11:51 SINUS RHYTHM NOW PRESENT Electronically Signed On 10-31-2022 14:22:45 CDT by Kiran Breaux M.D.
[2022-10-31 05:43] LABS: Alveolar/Arterial O2 Gradient 141.1 mmHg; Base Excess ABG -3.2 mEq/l (+/-2.0); Carboxyhemoglobin 0.3 % THb (0-2.0); Fractional Inspired Oxygen 40 %; HCO3 ABG 24.5 mEq/l (22.0-26.0); Methemoglobin ABG 0.2 %THb (0-1.5); Oxygen Content ABG 14.2 %vol (16.0-22.0); Oxygen Saturation ABG 93.5 % (95.0-100.0); Oxyhemoglobin 93.2 % THb (90.0-100.0); PCO2 ABG 56.9 mmHg (35.0-45.0); PO2 ABG 78.7 mmHg (80.0-100.0); PO2 FiO2 Ratio Arterial Blood 1.97 %; Reduced Hemoglobin 6.3 %THb (0-5.0); Total Hemoglobin 10.8 g/dL (12.0-18.0)
[2022-10-31 05:45] LABS: pH ABG 7.252 (7.350-7.450)
[2022-10-31 05:46] LABS: Arterial Blood Gas PEEP 5 cmH2O; Arterial Blood Gas Vent Mode CMV; Arterial Blood Gas Ventilator rate 24 /MIN; Device VENTILATOR; Modified Allen's Test Pass; Site Drawn RIGHT RADIAL
[2022-10-31 05:47] LABS: Arterial Blood Gas Tidal Volume 450 ml
[2022-10-31] MEDS: SODIUM CHLORIDE 0.9% IV 1,000 ML 100 ML IV CONT ×2 (05:55→15:59)
[2022-10-31] MEDS: HYDROCORTISONE SODIUM SUCCINATE 100 MG/2 ML VIAL IV PUSH ×2 (05:56→12:59)
[2022-10-31] MEDS: CENTRAL LINE FLUSH 10 ML IV PUSH ×3 (05:58→17:00)
[2022-10-31] MEDS: MIDAZOLAM 100MG/NS 100ML(*CRX) 100 MG/100 ML BAG 7 MG IV CONT (06:52)
--- NOTE | 2022-10-31 07:57 | PC.NURSE ---
10/30/22 at 1945: Notified Dr. Birmingham of patient being hypothermic and hypotensive, coffee ground/blood tinged output from OG tube, radiologist reporting that pt now has a left pneumothorax. Pt's BP decreased after 2mg of IVP Versed given. Notified Dr. Birmingham that patient doesn't have a central line at this time, with BP 53/38. Elida Griggs NP at bedside to insert central line. New orders per Dr. Birmingham: -start Levophed at 5mcg/min peripherally until central line is placed -consult surgery for chest tube placement -start yasmeen hugger per hypothermia protocol -notify Director Child Abuse Therapy about OG results to see if they are still wanting to start the heparin drip -start IVP Protonix q12h -obtain labs: CBC, CMP, Lactic acid, Mag, Phosp, Coags (PT, PTT, INR)
[2022-10-31] MEDS: ROSUVASTATIN 10 MG TABLET 20 MG PO (08:00)
[2022-10-31] MEDS: ASPIRIN 81 MG CHEWABLE TABLET PO (08:00)
[2022-10-31 08:10] LABS: Glucose Point of Care 140 mg/dl (65-105)
[2022-10-31 08:32] LABS: Hematocrit 30.1 % (42.0-52.0); Hemoglobin 9.4 g/dL (14.0-18.0); Mean Corpuscular HGB Conc 31.2 g/dl (32-36); Mean Corpuscular Volume 99.3 fl (80-100); Mean Platelet Volume 9.3 fl (7.4-10.4); Platelet Count Result 264 k/mm3 (150-375); Red Blood Count 3.03 M/mm3 (4.6-6.20); Red Cell Distribution Width 14.2 % (11.5-14.5)
[2022-10-31 09:40] LABS: Alveolar/Arterial O2 Gradient 152.7 mmHg; Base Excess ABG -4.4 mEq/l (+/-2.0); Fractional Inspired Oxygen 40 %; HCO3 ABG 21.8 mEq/l (22.0-26.0); Oxygen Content ABG 14.5 %vol (16.0-22.0); Oxygen Saturation ABG 94.8 % (95.0-100.0); Oxyhemoglobin 94.1 % THb (90.0-100.0); PO2 ABG 80.8 mmHg (80.0-100.0); PO2 FiO2 Ratio Arterial Blood 2.02 %; Total Hemoglobin 10.9 g/dL (12.0-18.0); pH ABG 7.304 (7.350-7.450)
[2022-10-31 09:41] LABS: Arterial Blood Gas PEEP 5 cmH2O; Arterial Blood Gas Vent Mode CMV; Arterial Blood Gas Ventilator rate 24 /MIN; Device VENTILATOR; Modified Allen's Test Pass; Site Drawn LEFT RADIAL
[2022-10-31 09:42] LABS: Arterial Blood Gas Tidal Volume 450 ml
[2022-10-31] MEDS: TICAGRELOR 90 MG TABLET PO (10:28)
[2022-10-31] MEDS: NOREPINEPHRINE 8 MG/D5W 250 ML 8 MG/250 ML BAG 30 MG IV CONT (10:37)
--- NOTE | 2022-10-31 10:59 | WPDINTPN ---
Progress Note: A&P Assessment and Plan (1) STEMI (ST elevation myocardial infarction): Code(s): I21.3 - ST elevation (STEMI) myocardial infarction of unspecified site Status: Acute Assessment and Plan: 10/30/2022: Patient presented to the ED with complaints of substernal chest pain, was taken directly to the cardiac slab worker where he had a PTCA/PCI with SERVANDO x1 to mid RCA. Patient also has a high-grade 95% stenosis in the circumflex between the 1st and 2nd marginal branches. Mild inferior hypokinesia with overall good ejection fraction of 60%. - Postprocedure patient had a VFib arrest, was defibrillated x1.? He given to monomorphic VT which resolved before any intervention.? I went up slab worker to assess the patient, he again had a VFib arrest and was defibrillated with sinus rhythm.? Patient was started on amiodarone bolus, received metoprolol 5 mg IV x1 and lidocaine 100 mg IV x1.? -later in the evening patient had another cardiac arrest and was taken back to slab worker and showed stent thrombosis. Underwent emergency repeat PCI to right coronary artery including extraction thrombectomy, balloon angioplasty and additional stenting. -continue aspirin, metoprolol, rosuvastatin, ticagrelor, Integrilin infusion -cardiology following -patient is on amiodarone infusion for the VFib and V-tach episodes likely secondary to reperfusion injury -echo ordered and pending (2) COPD (chronic obstructive pulmonary disease): Code(s): J44.9 - Chronic obstructive pulmonary disease, unspecified Status: Acute Assessment and Plan: Patient has a history of COPD likely secondary to history of tobacco use -continue bronchodilators -also on hydrocortisone as patient has significant wheezing on exam (3) Ventricular fibrillation: Code(s): I49.01 - Ventricular fibrillation Status: Acute Assessment and Plan: Patient had episodes of VFib and monomorphic V-tach post cardiac catheterization, received cardioversion x2, amiodarone bolus, lidocaine 100 mg IV x1 and metoprolol 5 mg IV x1. -he had repeat episode of V-tach and VFib in the ICU requiring re-intubation and repeat cardiac catheterization. See above -currently on amiodarone infusion which will be continued -cardiology following (4) Pneumothorax: Code(s): J93.9 - Pneumothorax, unspecified Status: Acute Assessment and Plan: Status post left chest tube placement by general surgery No air leak at this time Chest x-ray shows resolution of pneumothorax (5) Acute respiratory failure: Code(s): J96.00 - Acute respiratory failure, unspecified whether with hypoxia or hypercapnia Status: Acute Assessment and Plan: Acute Respiratory failure secondary to cardiac arrest, cardiogenic shock, left pneumothorax Continue full mechanical ventilation support to prevent hypoxemia/hypercarbia and end organ damage. ABG and PCXR reviewed and will repeat in am. Low tidal volume ventilation strategy to prevent volutrauma Will attempt SBT when hemodynamics improved. Currently too unstable for weaning Bronchodilators steroids (6) Shock: Code(s): R57.9 - Shock, unspecified Status: Acute Assessment and Plan: Cardiogenic shock Continue Levophed and Jean Paul-Synephrine Dobutamine or dopamine was not added due to multiple ventricular tachycardia and VFib cardiac arrest IABP at 1:1 Patient has receives more than 5 L of fluid. Continue IV fluids but hold further bolus at this time Echo ordered and pending (7) GI bleed: Code(s): K92.2 - Gastrointestinal hemorrhage, unspecified Status: Acute Assessment and Plan: Patient has bloody output from OG tube Possible stress gastritis versus peptic ulcer disease Patient also on antiplatelet therapy to protect his stent Heparin infusion to intra-aortic balloon pump was discontinued Continue monitoring hemoglobin Continue Protonix infusion NPO GI is following Transfuse as needed
--- NOTE | 2022-10-31 11:03 | PM.PNCARD ---
Progress Note: A&P Assessment and Plan (1) STEMI (ST elevation myocardial infarction): Code(s): I21.3 - ST elevation (STEMI) myocardial infarction of unspecified site Status: Acute (2) Ventricular fibrillation: Code(s): I49.01 - Ventricular fibrillation Status: Acute (3) Acute respiratory failure: Code(s): J96.00 - Acute respiratory failure, unspecified whether with hypoxia or hypercapnia Status: Acute (4) Shock: Code(s): R57.9 - Shock, unspecified Status: Acute (5) Pneumothorax: Code(s): J93.9 - Pneumothorax, unspecified Status: Acute (6) GI bleed: Code(s): K92.2 - Gastrointestinal hemorrhage, unspecified Status: Acute Plan Patient is critically ill after presenting with an inferior STEMI complicated by ventricular fibrillation arrest, acute stent thrombosis requiring a second emergent PCI, shock requiring IABP and multiple pressures, acute respiratory failure requiring mechanical ventilation, pneumothorax requiring chest tube (pneumothorax now resolved), and now GI bleed. Patient's case and plan discussed with Dr. Dempsey at patient's bedside. Agree with transfer to [facility]. In the meantime, continue with ASA and Brilinta. Continue Amiodarone drip. Continue pressor support as needed. Will keep with IABP at 1:1. Given bleeding issues, can hold Heparin and Integrilin drips. Subjective Date/time seen: 10/31/22 11:03 Interval history: Reason for visit: STEMI, shock HPI: This is a 71-year-old man who I am seeing very quickly as he is being prepared for emergency coronary angiography in the setting of acute inferior wall ST-elevation SC. The patient was [place] home [place] and I think a short time ago proper prior to arrival here started to experience retrosternal chest pressure.? 911 was called to his home.? ECG in the field was clearly diagnostic of acute inferior wall current of injury and emergency STEMI was activated.? I reviewed the electrocardiogram in the emergency room and authorized direct transfer from ambulance to the cardiac catheterization lab.? In the cardiac catheterization lab he is reporting moderate pressure-like central chest pain as he is being prepared for emergency angiography.? He reports no previous history of cardiac problems.? He does take medication for hypertension any does have COPD because of cigarette smoking. Date of service 6/6: Events from yesterday reviewed: Patient taken emergently to the cardiac chemical lab technician by Dr. Calixto. Cardiac catheterization showed significant 2 vessel coronary artery disease presenting with acute occlusion of the mid RCA resulting in acute inferior ST-elevation SC. Patient also has high-grade stenosis in the circumflex between the 1st and 2nd marginal branches as detailed above. Mild inferior hypokinesia but overall good left ventricular systolic function. Successful emergency PCI of the right coronary artery using the 3.5 x 26 mm SERVANDO?with a very good angiographic result. Severe ventricular irritability in the chemical lab technician following revascularization including 2 episodes of ventricular fibrillation and 1 episode of sustained pulseless ventricular tachycardia. Following this the patient has been placed on intravenous amiodarone he also received intravenous metoprolol and lidocaine as described above. Later that afternoon at 16:28, KYE BOB was called in the ICU.? The patient had gone into [place] and patient was shocked by nursing staff and given epinephrine.? Patient continued to receive epinephrine and chest compressions.? When compressions were stopped patient was in V-fib and patient was defibrillated into a spontaneous sinus rhythm that was a rate of 60.? During the KYE ROJAS the patient received 2 mg of magnesium sulfate as well as an amp of bicarb.? There was persistent ST elevation. Due to critical nature of illness and combativeness patient was given 5 of Versed and then intubated by Elida Monroe
--- NOTE | 2022-10-31 11:16 | PCFNICU ---
ICU Rounding Note: Pt current nutrition is NPO. Last recorded weight is 85.5 kg. Bowel Motility:No BM reported Labs Reviewed:Mg 2.8,BUN 23, GFR 50, Cr 1.4,Glu 221 Meds Noted:Fentanyl, Versed, Levophed, Crestor Skin: WNL Additional Notes: Patient remains on mechanical vent. No plans for tube feedings today. Following daily in ICU rounds.
[2022-10-31 12:34] LABS: Glucose Point of Care 175 mg/dl (65-105)
[2022-10-31 14:11] LABS: Hematocrit 29.5 % (42.0-52.0); Hemoglobin 9.1 g/dL (14.0-18.0); Mean Corpuscular HGB Conc 30.8 g/dl (32-36); Mean Corpuscular Hemoglobin 30.8 pg (26-34); Mean Platelet Volume 9.6 fl (7.4-10.4); Platelet Count Result 251 k/mm3 (150-375); Red Blood Count 2.95 M/mm3 (4.6-6.20); Red Cell Distribution Width 14.3 % (11.5-14.5); White Blood Count 17.6 K/mm3 (4.5-10.0)
[2022-10-31 16:14] LABS: Glucose Point of Care 186 mg/dl (65-105)
--- NOTE | 2022-10-31 16:38 | PM.TDS ---
Transfer Discharge Sum: Prov Provider Date of admission: 10/30/22 13:07 Primary care physician: Chandu Schroeder MD Admitting clinician: Trent Calixto MD Attending physician on admission: Trent Calixto Consults: 10/30/22 Consult to Physician Routine Comment: Consulting Provider: Amber Martin Reason for consultation: pneumothorax Has provider been notified: Yes Consult to Physician Routine Comment: Consulting Provider: Kb [place] call center specialist/MD group to consult: Reason for consultation: STEMI Has provider been notified: Yes 10/30/22 13:07 Cardiopulmonary Rehabilitation Consult Routine Comment: Consult Plan: Evaluate for Eligibility 10/30/22 18:15 Cardiopulmonary Rehabilitation Consult Routine Comment: Consult Plan: Evaluate for Eligibility 10/31/22 Consult to Physician Routine Comment: Consulting Provider: Lc Ponce call center specialist/MD group to consult: GI Reason for consultation: GI bleed Has provider been notified: Yes Attending physician on discharge: Kiran Breaux Discharging clinician: Kiran Breaux Anticipated date of transfer: 10/31/22 Receiving physician/facility: [facility] DS: Admitting Diagnosis Discharge Date 10/31/22 Admitting Diagnosis STEMI with acute in-stent thrombosis requiring second PCI Cardiogenic shock DS: Discharge Diagnosis Discharge Diagnosis (1) STEMI (ST elevation myocardial infarction): Code(s): I21.3 - ST elevation (STEMI) myocardial infarction of unspecified site Status: Acute (2) Ventricular fibrillation: Code(s): I49.01 - Ventricular fibrillation Status: Acute (3) Acute respiratory failure: Code(s): J96.00 - Acute respiratory failure, unspecified whether with hypoxia or hypercapnia Status: Acute (4) Shock: Code(s): R57.9 - Shock, unspecified Status: Acute (5) GI bleed: Code(s): K92.2 - Gastrointestinal hemorrhage, unspecified Status: Acute Transfer Discharge Sum: Med Medications Active and Home Medications: Home Medications albuterol sulfate 90 mcg/actuation aerosol inhaler 1 puff inhalation 4-6XD PRN Shortness Of Breath 10/07/22 [History Confirmed 10/30/22] amlodipine 10 mg tablet 10 mg PO DAILY 10/07/22 [History Confirmed 10/30/22] fluticasone fur. 100 mcg-umeclid 62.5 mcg-vilant 25 mcg inhalat.powder (Trelegy Ellipta) 1 ea inhalation DAILY 10/07/22 [History Confirmed 10/30/22] Transfer Discharge Sum: Hosp Hospital Course Hospital course: Patient is critically ill after presenting with an inferior STEMI complicated by ventricular fibrillation arrest, acute stent thrombosis requiring a second emergent PCI, shock requiring IABP and multiple pressures, acute respiratory failure requiring mechanical ventilation, pneumothorax requiring chest tube (pneumothorax now resolved), and now GI bleed. Patient's case and plan discussed with Dr. Dempsey at patient's bedside. Agree with transfer to [facility]. Time Spent with Patient Time attestation: Total time spent providing and/or coordinating transfer services: Exam Narrative: See cardiology progress note dated 10/31/2022 for exam
--- NOTE | 2022-10-31 17:23 | WPDGICN ---
Assessment and Plan Assessment and plan (1) GI bleed: Code(s): K92.2 - Gastrointestinal hemorrhage, unspecified Status: Acute Assessment and Plan: after use of blood thinner, ok to continue asa and brilinta given recent stents but cardiology ok to hold Heparin and Integrilin drips. continue to monitor for more signs of bleeding unstable to have egd now unless more obvious bleeding or acute drop of h/h plan to transfer to tertiary center given complexity of case (2) Acute blood loss anemia: Code(s): D62 - Acute posthemorrhagic anemia Status: Acute Assessment and Plan: continue to monitor (3) STEMI (ST elevation myocardial infarction): Code(s): I21.3 - ST elevation (STEMI) myocardial infarction of unspecified site Status: Acute Assessment and Plan: s/p pci x2 cardiology on board (4) Ventricular fibrillation: Code(s): I49.01 - Ventricular fibrillation Status: Acute (5) Acute respiratory failure: Code(s): J96.00 - Acute respiratory failure, unspecified whether with hypoxia or hypercapnia Status: Acute Assessment and Plan: intubated (6) Pneumothorax: Code(s): J93.9 - Pneumothorax, unspecified Status: Acute Assessment and Plan: required chest tube (7) Shock: Code(s): R57.9 - Shock, unspecified Status: Acute GI Consult Note Consult date/time: 10/31/22 17:23 Reason for consult: gib after anticoagulant in setting of acute STEMI HPI: Hoang Marinelli is a 71 year old male with history of essential hypertension, tobacco abuse, COPD presented the ED on 10/30/2022 with complains of substernal chest pain/pressure short time prior to arrival.? 911 was called, EKG in the field was diagnostic of acute inferior wall TX. Underwent emergent cardiac cath but then complicated by ventricular fibrillation arrest due to acute stent thrombosis requiring a second emergent PCI, also was in shock requiring IABP and pressors, acute respiratory failure requiring mechanical ventilation, pneumothorax requiring chest tube by surgery and then noted brb per NGT after used of integrilin and heparin gtt. He is critically ill. History obtained from records and after discussing with skin peeling machine operator. He is on iv protonix. Hb 9 (admission 13) Review of Systems Review of Systems: ROS unobtainable: Yes unobtainable due to endotracheal tube and unobtainable due to medical condition [facility] Past Medical History Medical History (Updated 10/31/22 @ 17:28 by Lc Ponce MD) Acute blood loss anemia COPD (chronic obstructive pulmonary disease) Family History Family History Sibling Cancer Cerebrovascular accident Social History Social History Smoking packs per day: 1 Smoking cigarettes per day: 20.0 Years smoked: 50 Smoking pack-years: 50.00 Smoking status: Current every day smoker Tobacco type: cigarettes Alcohol intake: never Substance use: never Substance use type: does not use Lack of Transportation: No Lack of Food: Never True Current Housing: I Have Housing Concerned About Future Housing: No Difficulty Paying Gas/Electric Bills: No Difficulty Paying for Meds: No Currently Unemployed: No Education: High School Diploma/GED Difficulty w/ Childcare or Family Care: No Spiritual care concerns: No Meds Home Medications and Allergies Home Medications Medication Instructions Recorded Confirmed Type albuterol sulfate 90 mcg/actuation 1 puff inhalation 4-6XD PRN 10/07/22 10/30/22 History aerosol inhaler Shortness Of Breath amlodipine 10 mg tablet 10 mg PO DAILY 10/07/22 10/30/22 History fluticasone fur. 100 mcg-umeclid 1 ea inhalation DAILY 10/07/22 10/30/22 History 62.5 mcg-vilant 25 mcg inhalat.powder (Trelegy Ellipta) Allergies Allergy/AdvReac Type Se
--- NOTE | 2022-11-04 18:32 | ED.PROCEDURE ---
Procedures Other Procedures Procedure 1: Other Procedure: A second CODE BLUE occurred at 1645. Patient lost pulses for 5 minutes. He was in asystole. After several rounds of CPR we had return of spontaneous circulation in a sinus rhythm. Patient was already intubated. No drugs were given.
== END 2022-10-31 19:33 | disposition short-term general hospital (02) | DRG 228 ==
PROVIDERS: Internal Medicine; Nurse Practitioner; Admitting Provider Specialist; PCP Family Medicine; Visit Provider Internal Medicine
PROC: 4A023N7 Measurement of Cardiac Sampling and Pressure, Left Heart, Percutaneous Approach (ICD-10-PCS; CPT 93452; principal; 2022-10-30 12:30)
PROC: 027034Z Dilation of Coronary Artery, One Artery with Drug-eluting Intraluminal Device, Percutaneous Approach (ICD-10-PCS; 2022-10-30 12:30)
PROC: 027034Z Dilation of Coronary Artery, One Artery with Drug-eluting Intraluminal Device, Percutaneous Approach (ICD-10-PCS; CPT 93454; principal; 2022-10-30 17:00)
PROC: 027034Z Dilation of Coronary Artery, One Artery with Drug-eluting Intraluminal Device, Percutaneous Approach (ICD-10-PCS; 2022-10-30 17:00)
DX: I21.11 ST elevation (STEMI) myocardial infarction involving right coronary artery (principal); I49.02 Ventricular flutter; J96.02 Acute respiratory failure with hypercapnia; R57.0 Cardiogenic shock; J93.9 Pneumothorax, unspecified; K92.2 Gastrointestinal hemorrhage, unspecified; J44.9 Chronic obstructive pulmonary disease, unspecified; I51.3 Intracardiac thrombosis, not elsewhere classified; F17.210 Nicotine dependence, cigarettes, uncomplicated; Z79.899 Other long term (current) drug therapy
CPT/HCPCS: 31500; 33967; 36415; 36430; 36600; 71045; 80053; 80061; 82375; 82805; 82948; 83050; 83605; 83735; 84100; 84484; 85025; 85027; 85380; 85384; 85610; 85730; 86900; 86901; 93005; 93308; 93454; 93458; 94002; 94640; A9270; C1725; C1729; C1751; C1757; C1769; C1874; C1887; C1894; C9113; C9606; J0171; J0282; J0461; J0583; J0613; J1327; J1644; J1720; J2001; J2250; J2370; J2405; J3010; J3475; J7030; J7040; J7060; L1830; P9017

== ENCOUNTER 2023-02-23 09:04 | Outpatient (CLI) | payer MEDICARE, SELFPAY ==
--- NOTE | ~2023-02-23 | US_ITS ---
EXAMINATION: US carotid duplex BI DATE: 02/23/2023 10:02 INDICATION: Bilateral carotid artery stenosis TECHNIQUE: Grayscale, color Doppler, and pulsed Doppler images of the cervical carotid arteries were obtained. The degree of vessel stenosis is placed in one of the following categories: normal, <50%, 5 0-69%, >=70% but less than near-occlusion, near-occlusion, or total occlusion. Note that percent sten osis relative to normal distal artery lumen diameter is indirectly measured from velocity measurement s as described by Dino, et al. Radiology 2003; 229:340-346. Notes: Normal: Peak systolic velocity <125 centimeters/sec and no plaque <50%. Peak systolic velocity <125 ( EDV <40; ICA/CCA PSV ratio <2.0; used these factors only a tandem lesions or low cardiac output or co ntralateral disease) 50-69 %: PSV 125-230 (EDV 40-100; ratio 2-4) >= 70% but less than near occlusion: PSV greater than 230 (EDV > 100; ratio> 4.0) Near Occlusion: PSV that is variable; markedly narrowed lumen Occlusion: Absent flow on color/spectral Doppler and no lumen on blas scale. COMPARISON: None. FINDINGS: RIGHT: The right common carotid artery (CCA) peak systolic velocity (PSV) is 75 cm/s. The right internal car otid artery (ICA) PSV is 82 cm/s. The right ICA end-diastolic velocity (EDV) is 22 cm/s. The right IC A/CCA PSV ratio is 1.1. The external carotid artery (ECA) PSV is 95 cm/s. There is antegrade flow in the right vertebral artery. LEFT: The left CCA PSV is 89 cm/s. The left ICA PSV is 75 cm/s. The left ICA EDV is 19 cm/s. The left ICA/C CA PSV ratio is 0.8. The ECA PSV is 109 cm/s. There is antegrade flow in the left vertebral artery. IMPRESSION: 1. Less than 50% stenosis in the right internal carotid artery by sonographic criteria. 2. Less than 50% stenosis in the left internal carotid artery by sonographic criteria. Reviewed, dictated and finalized at location B. IMPRESSION: 1. Less than 50% stenosis in the right internal carotid artery by sonographic c chuck. 2. Less than 50% stenosis in the left internal carotid artery by sonographic cr nestor.
== END 2023-02-23 09:05 | disposition home or self-care (01) ==
PROVIDERS: PCP Family Medicine; Visit Provider Internal Medicine Cardiovascular Disease
DX: I65.23 Occlusion and stenosis of bilateral carotid arteries (principal)
CPT/HCPCS: 93880

== ENCOUNTER 2023-04-27 13:44 | Outpatient (CLI) | payer MEDICARE, SELFPAY ==
--- NOTE | 2023-04-27 16:46 | WPDPFTINT ---
PFT Procedure Performed PFT Procedure Performed Flow Vol Loop Spirometry w/o Bronchodil PFT Interpretation This is a pulmonary function test with spirometry. The test was performed and results interpreted in accordance with the 2019 and 2005 ATS/ERS Task Force guidelines respectively using the Global Lung Function Initiative-2012 reference equations. Patient demonstrated good effort and cooperation. Reproducibility criteria were met. The quality of the spirometry maneuver was Grade A. Findings: Spirometry: There is decreased maximal expiratory airflow at all lung volumes with concave expiratory flow tracing. The contour the inspiratory flow tracing is normal. The FVC is 3.53 L, 90% predicted. The FEV1 is 1.58 L, 53% predicted. The FEV1: FVC ratio is 45%. In comparison to previous pulmonary function testing on 01/01/2019 the pre bronchodilator FVC has increased from 2.96 L to 3.53 L. The pre bronchodilator FEV1 has increased from 1.22 L to 1.58 L. Impression: There is a moderately severe obstructive abnormality. A concurrent restrictive abnormality cannot be excluded as lung volumes were not measured. In comparison to previous spirometry on 01/01/2019 there has been a greater than anticipated time dependent increase in the FVC and FEV1. Clinical correlation is recommended.
== END 2023-04-27 13:45 | disposition home or self-care (01) ==
LOC: ANHPFT 13:45
PROVIDERS: PCP Family Medicine; Visit Provider Nurse Practitioner Adult Health
DX: J44.9 Chronic obstructive pulmonary disease, unspecified (principal); R06.09 Other forms of dyspnea; R94.2 Abnormal results of pulmonary function studies
CPT/HCPCS: 94375

== ENCOUNTER 2023-04-30 08:30 | Outpatient (RCR) | payer MEDICARE, SELFPAY | END 2023-04-30 10:15 | disposition home or self-care (01) | LOC: ANHCPREHAB 08:30 | PROVIDERS: PCP Family Medicine; Visit Provider Internal Medicine Cardiovascular Disease | DX: Z95.5 Presence of coronary angioplasty implant and graft (principal) | CPT/HCPCS: 93798 ==

== ENCOUNTER 2023-08-29 08:32 | Outpatient (CLI) | payer MEDICARE, SELFPAY ==
--- NOTE | ~2023-08-29 | CT_ITS ---
CT Scan of the Chest without Contrast: Clinical Indication: Pulmonary nodule Technique: Contiguous sections were acquired throughout the chest without intravenous contrast. Dose reduction technique was used on this scan by utilizing automated exposure control and iterative recon struction technique. The dose-length product (DLP) was 110.15 mGy-cm. Findings: There is no evidence of any significant mediastinal, hilar or axillary lymphadenopathy. Coronary antoine ry calcifications are present. There is no evidence of pleural or pericardial effusion. Moderate emphysema present. Several scattered tiny peripheral pulmonary nodules are present, measurin g 1-2 mm, most likely benign. Images through the upper abdomen reveal no abnormalities. Impression: Moderate emphysema with tiny peripheral pulmonary nodules, as noted above. No suspicious abnormalitie s seen. Reviewed, dictated and finalized at location . Impression: Moderate emphysema with tiny peripheral pulmonary nodules, as noted above. No s uspicious abnormalities seen.
--- NOTE | 2023-08-29 12:28 | WPDSIXMINUTE ---
Six Minute Walk Procedure Procedure Performed Pulmonary Stress Test (6 min walk) Six Minute Walk Six Minute Walk: This is a 6 minute walk test. The test was performed and interpreted in accordance with the 2014 ERS/ATS task force guidelines. Findings: The patient's resting room air oxygen saturation measured by pulse oximetry was 95% and heart rate was 63 bpm. Patient ambulated for 366 meters and oxygen saturation remained 92 to 97%. Heart rate at the end of the study was 80 bpm. The patient did not qualify for supplemental oxygen at rest or with ambulation. There are no prior studies for comparison.
--- NOTE | 2023-08-29 12:29 | WPDPFTINT ---
PFT Procedure Performed PFT Procedure Performed Spirometry with Pre/Post Bronchodilator Plethysmography (Lung Vol) Diffusing Cap (DLCO) Flow Vol Loop PFT Interpretation This is a pulmonary function test with pre and post-bronchodilator spirometry, plethysmography and diffusing capacity. The test was performed and results interpreted in accordance with the 2019 and 2005 ATS/ERS Task Force guidelines respectively using the Global Lung Function Initiative-2012 reference equations. Patient demonstrated good effort and cooperation. Reproducibility criteria were met. The quality of the pre bronchodilator spirometry maneuver was Grade A and post bronchodilator spirometry maneuver was Grade A. Findings: Spirometry: There is decreased expiratory airflow at all lung volumes with concave expiratory flow tracing. The contour the inspiratory flow tracing is normal. The pre bronchodilator FVC is 3.79 L, 96% predicted. The pre bronchodilator FEV1 is 1.58 L, 53% predicted. The pre bronchodilator FEV1: FVC ratio is 42%. The post bronchodilator FVC is 3.79 L, representing no change. The post bronchodilator FEV1 is 1.54 L, representing a 2% decrease. The post bronchodilator FEV1: FVC ratio is 41%. Plethysmography: The total lung capacity is 6.86 L, 101% predicted. The functional residual capacity is 4.79 L, 132% predicted. The residual volume is 3.06 L, 124% predicted. Diffusing capacity: The diffusing capacity unadjusted for hemoglobin and carboxyhemoglobin is 12.1, 49% predicted. The diffusing capacity adjusted for alveolar volume is 2.50, 65% predicted. In comparison to most recent spirometry on 04/27/2023 the pre bronchodilator FVC is unchanged from 3.53 L to 3.79 L. The pre bronchodilator FEV1 is unchanged from 1.58 L to 1.58 L. In comparison to most recent plethysmography and diffusing capacity on 01/01/2019 the total lung capacity is unchanged from 6.97 to 6.86 L. The functional residual capacity is unchanged from 5.03 L to 4.79 L. The residual volume is decreased from 4.00 L to 3.06 L. The diffusing capacity unadjusted for hemoglobin and carboxyhemoglobin is decreased from 14.3 to 12.1. The diffusing capacity adjusted for alveolar volume is decreased from 3.28 to 2.50 Impression: There is a moderately severe obstructive abnormality. There is no significant improvement after inhaling a single dose of albuterol. the lung volumes are normal. The diffusing capacity unadjusted for hemoglobin and carboxyhemoglobin is moderately decreased and remains mildly decreased when adjusted for alveolar volume. In comparison to previous spirometry on 04/27/2023 there has been no significant change in the FVC or FEV1. In comparison to plethysmography and diffusing capacity on 01/01/2019 there has been a greater than anticipated time dependent decrease in the residual volume, and diffusing capacity with no significant change in the total lung capacity or functional residual capacity. Clinical correlation is recommended.
== END 2023-08-29 08:33 | disposition home or self-care (01) ==
LOC: ANHIMG 08:33
PROVIDERS: PCP Family Medicine; Visit Provider Internal Medicine Critical Care Medicine
DX: R91.8 Other nonspecific abnormal finding of lung field (principal); J43.9 Emphysema, unspecified
CPT/HCPCS: 71250; 94060; 94618; 94726; 94729

== ENCOUNTER 2023-10-21 09:30 | Inpatient (IN) | payer MEDICARE, SELFPAY ==
[2023-10-21] VITALS (16 sets, daily range): BP systolic 67–142; BP diastolic 46–97; PULSE 57–74; RESP 14–20; TEMP 36.3–37.6; O2SAT 92–100; BMI 25.5
--- NOTE | ~2023-10-21 | CT_ITS ---
EXAMINATION: CTA brain carotid DATE: 10/21/2023 10:58 INDICATION: Dizziness and lightheadedness. TECHNIQUE: Computed tomographic angiography (CTA) of the head was performed with 100 mL Omnipaque-350 intravenous contrast. CTA of the neck was performed with intravenous contrast. Automated exposure co ntrol and iterative reconstruction technique were employed. The dose-length product was 995.97 mGy-cm . Maximum intensity projection and volume rendered 3D-reconstructions were created by the [employer] t on a separate workstation. COMPARISON: Head CT 10/21/2023 FINDINGS: HEAD CTA: There are old infarcts involving the bilateral basal ganglia and right frontal lobe. There are scattered areas of low attenuation in the cerebral white matter. There is no intracranial hemorrh age, acute infarction, or abnormal intracranial mass lesion. The ventricles are normal in size. The o rbits are normal. The mastoid air cells are normal. There is mild mucosal thickening in the paranasal sinuses. Left vertebral artery is dominant. There is no significant stenosis of basilar artery or th e posterior cerebral arteries. The posterior communicating arteries are normal. There is no significa nt stenosis of the intracranial internal carotid arteries or anterior or middle cerebral arteries. An terior communicating artery is normal. There is no aneurysm. NECK CTA: There is moderate emphysema. There are no pathologically enlarged lymph nodes. There is no significant stenosis of the vertebral arteries. There is plaque in the proximal internal carotid antoine thalia. There is 7% stenosis of the proximal right internal carotid artery relative to normal distal ar imer lumen diameter (NASCET criteria). There is 0% stenosis of the proximal left internal carotid art lisandra relative to normal distal artery lumen diameter. There is moderate cervical spondylosis. IMPRESSION: 1. 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 2. No aneurysm or significant intracranial arterial stenosis. 3. 7% stenosis of the proximal right internal carotid artery relative to normal distal artery lumen d iameter (NASCET criteria). 4. 0% stenosis of the proximal left internal carotid artery relative to normal distal artery lumen di ameter. 5. Moderate emphysema. Reviewed, dictated and finalized at location E. IMPRESSION: 1. 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 2. No aneurysm or significant intracranial arterial stenosis. 3. 7% stenosis of the proximal right internal carotid artery relative to normal distal artery lumen diameter (NASCET criteria). 4. 0% stenosis of the proximal left internal carotid artery relative to normal distal artery lumen diameter. 5. Moderate emphysema.
--- NOTE | ~2023-10-21 | CT_ITS ---
EXAMINATION: CT diagnostic chest wo con DATE: 10/22/2023 14:26 INDICATION: Cough, fever and wheezing TECHNIQUE: Computed tomography (CT) of the chest was performed without intravenous contrast. The dose -length product was 303.86 mGy-cm. Automated exposure control and iterative reconstruction technique were employed. COMPARISON: CT dated 08/29/2023 FINDINGS: Trace pleural effusions. Trace pericardial effusion. Heart size normal. There is atheroscle rosis of the aorta and coronary arteries. Borderline sized mediastinal lymph nodes, likely reactive. Upper abdomen is unremarkable. There is dependent hyperdense material in the gallbladder which may re present sludge or stones. Severe emphysema. There is a new 10 mm right upper lobe nodule, image 34. T here is bilateral lower lobe airspace disease dependently which may represent atelectasis and/or pneu monia. There is interlobular septal thickening of the lung bases with areas of subpleural groundglass opacification. IMPRESSION: 1. New 10 mm right upper lobe nodule, suspicious for malignancy. Recommend correlation with pet/CT sc an or 3 month follow-up low dose CT chest. 2: Bibasilar dependent atelectasis with subpleural groundglass opacities and interlobular septal thic kening predominantly affecting the lower lobes. Considerations include atypical pneumonia and/or atel ectasis. 3: Trace pleural and pericardial effusions. Reviewed, dictated and finalized at location A. IMPRESSION: 1. New 10 mm right upper lobe nodule, suspicious for malignancy. Recommend cy elation with pet/CT scan or 3 month follow-up low dose CT chest. 2: Bibasilar dependent atelectasis with subpleural groundglass opacities and in terlobular septal thickening predominantly affecting the lower lobes. Considera tions include atypical pneumonia and/or atelectasis. 3: Trace pleural and pericardial effusions.
--- NOTE | ~2023-10-21 | CT_ITS ---
EXAMINATION: CT brain wo con DATE: 10/21/2023 10:53 INDICATION: Dizziness. Lightheadedness. TECHNIQUE: Computed tomography (CT) of the head was performed without intravenous contrast. The mA wa s adjusted according to patient size. Iterative reconstruction technique was employed. The dose-lengt h product was 681.00 mGy-cm. COMPARISON: None FINDINGS: There are old infarcts in the bilateral basal ganglia. There are scattered areas of low att enuation in the cerebral white matter. There is an old infarct in right frontal lobe. There is no int racranial hemorrhage, acute infarction, or abnormal intracranial mass lesion. The ventricles are norm al in size. There is mild mucosal thickening in the paranasal sinuses. The orbits are normal. The mas toid air cells are normal. IMPRESSION: 1. 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 2. Mild nonspecific cerebral white matter disease, which likely represents chronic small vessel ische trupti disease. Reviewed, dictated and finalized at location E. IMPRESSION: 1. 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 2. 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
--- NOTE | ~2023-10-21 | XR_ITS ---
EXAMINATION: XR chest 2V DATE: 10/21/2023 10:42 INDICATION: Lightheadedness. TECHNIQUE: Frontal and lateral views of the chest were obtained. COMPARISON: Chest single view 10/31/2022, chest CT 08/29/2023 FINDINGS: There are lucencies in the lungs, consistent with emphysema. No pleural effusion or pneumot horax. The heart size is normal. IMPRESSION: 1. Emphysema. Reviewed, dictated and finalized at location E. IMPRESSION: 1. Emphysema.
--- NOTE | ~2023-10-21 | CT_ITS ---
EXAMINATION: CT abdomen pelvis wo con DATE: 10/22/2023 21:12 INDICATION: Concern for metastatic disease. TECHNIQUE: Computed tomography (CT) of the abdomen and pelvis was performed without intravenous contr ast. The dose-length product was 569.06 mGy-cm. Automated exposure control and iterative reconstructi on technique were employed. COMPARISON: None. FINDINGS: There are groundglass opacities in the lower lobes, right greater than left. Emphysema. Sma ll pleural effusions. Small pericardial effusion. Dependent high density material in the gallbladder may represent vicarious excretion of contrast, sludge or stones. The spleen, pancreas, adrenal glands and kidneys are unremarkable. The liver is unremarkable. There is atherosclerosis. Small fat-contain ing umbilical hernia. There is contrast in the bladder, presumably from prior CTA performed 10/21/2023 . Nonobstructive bowel gas pattern. Colonic diverticulosis without evidence for diverticulitis. No fo mariia lytic or blastic lesions. Moderate retained fecal material in the rectum. No lymphadenopathy. IMPRESSION: 1. Groundglass opacities in the lower lobes, suspicious for pneumonia. 2: Small pleural and pericardial effusions. 3: Emphysema. Reviewed, dictated and finalized at location A.
--- NOTE | 2023-10-21 09:37 | ECG_ITS ---
SEE SCANNED COPY FOR CONFIRMED REPORT MTDD
[2023-10-21 09:56] LABS: Basophils Absolute Auto 0.1 K/mm3 (0.0-0.1); Basophils Percent Auto 0.5 % (0.2-1.2); Eosinophils Absolute Auto 0.2 K/mm3 (0-0.3); Eosinophils Percent Auto 1.5 % (0-4.4); Hematocrit 40.3 % (42.0-52.0); Hemoglobin 13.1 g/dL (14.0-18.0); Immature Granulocyte Absolute 0.05 K/mm3 (0.00-0.031); Immature Granulocyte Percent A 0.3 % (0-0.5); Lymphocytes Absolute Auto 1.57 K/mm3 (0.9-3.2); Lymphocytes Percent Auto 10.5 % (18.3-44.2); Mean Corpuscular HGB Conc 32.5 g/dl (32-36); Mean Corpuscular Hemoglobin 31.3 pg (26-34); Mean Corpuscular Volume 96.4 fl (80-100); Mean Platelet Volume 10.1 fl (7.4-10.4); Monocytes Absolute Auto 1.2 K/mm3 (0.1-0.6); Monocytes Percent Auto 7.9 % (2.6-8.5); Neutrophils Absolute Auto 11.8 K/mm3 (1.3-6.7); Neutrophils Percent Auto 79.3 % (45.5-73.1); Platelet Count Result 243 k/mm3 (150-375); Red Blood Count 4.18 M/mm3 (4.6-6.20); Red Cell Distribution Width 14.9 % (11.5-14.5); White Blood Count 14.9 K/mm3 (4.5-10.0)
[2023-10-21 10:08] LABS: Alanine Aminotransferase 27 U/L (6-50); Albumin Level 3.6 g/dL (3.5-5.1); Alkaline Phosphatase 104 U/L (38-126); Anion Gap 5 mmol/L (4-12); Aspartate Amino Transferase 29 U/L (17-59); Bilirubin,Total 1.3 mg/dL (0.2-1.3); Blood Urea Nitrogen 23 mg/dL (9-20); Calcium 8.8 mg/dL (8.4-10.2); Carbon Dioxide 26 mmol/L (22-30); Chloride 107 mmol/L (98-107); Estimated CRCL calculation 42 ml/min; Estimated Glomerular Filt Rate 50; Glucose 144 mg/dL (65-110); Sodium 138 mmol/L (137-145)
--- NOTE | 2023-10-21 10:13 | ED.DIZZY ---
HPI - Dizziness General Chief Complaint: Dizziness Stated Complaint: dizzy and light headed Time Seen by Provider: 10/21/23 10:11 History of Present Illness HPI Narrative: Patient is a 72 year old male with history of CAD s/p complicated FL with LAD occlusion and reocclusion here after an episode of dizziness this morning. Notes that he woke up feeling like his normal self. He got up and began to get breakfast ready by putting horton in the oven and making pancake mix. Patient notes that he suddenly started experiencing posterior neck pain and became dizzy. He then began sweating profusely. Patient sat down, had complete resolution of the neck pain and dizziness but continued to sweat. he currently denies any symptoms and feels like his normal self. He denies experiencing any shortness of breath or chest pain during this episode. He notes that the profuse sweating did remind him of his prior heart attack however at that time he did have associated chest pain which he did not have today. He denies any recent illnesses, he does have a chronic cough which is unchanged from his baseline COPD. He denies any diarrhea or urinary symptoms. No prior stroke. Patient describes a complex cardiac history over the last 1 year. He states that in October of 2022 he was having chest pain and diaphoresis and synopsized in route to the hospital. He was found to have 100% lad occlusion and went to the open hearth laborer at this hospital. He had a stent placed and then describes that the stent collapsed . He ended up having to be placed on a balloon pump and sent to [facility] where he had restenting performed but did suffer 3 separate cardiac arrest during his resuscitation. He had an initial cardiac stent placed in May of this year at [facility]. This was a known lesion identified during his original cath and it was pre planned stenting, not an additional FL. He is on Brilinta and aspirin for his prior stents. Related Data Home Medications Medication Instructions Recorded Confirmed albuterol sulfate 90 mcg/actuation 1 puff inhalation 4-6XD PRN 10/07/22 10/21/23 aerosol inhaler Shortness Of Breath fluticasone fur. 100 mcg-umeclid 1 ea inhalation DAILY 10/07/22 10/21/23 62.5 mcg-vilant 25 mcg inhalat.powder (Trelegy Ellipta) furosemide 20 mg tablet 20 mg PO DAILY 08/21/23 10/21/23 metoprolol tartrate 25 mg tablet 12.5 mg PO BID 08/21/23 10/21/23 pantoprazole 40 mg tablet,delayed 40 mg PO DAILY 08/21/23 10/21/23 release potassium chloride 10 mEq 10 meq PO DAILY 08/21/23 10/21/23 tablet,extended release trazodone 100 mg tablet 100 mg PO DAILY PRN Sleep 08/21/23 10/21/23 atorvastatin 80 mg tablet 80 mg PO DAILY 10/21/23 10/21/23 Allergies Allergy/AdvReac Type Severity Reaction Status Date / Time No Known Allergies Allergy Verified 10/21/23 09:56 Review of Systems Review of Systems: All systems reviewed & are unremarkable except as noted in HPI and below PMFSH Past Medical History Medical History (Updated 10/21/23 @ 19:10 by Tiffany Arellano MD) Benign prostatic hyperplasia Cardiac arrest with ventricular fibrillation (10/2022) COPD with emphysema Coronary artery disease Hyperlipidemia Hypertension ST elevation myocardial infarction (STEMI) of inferior wall (10/2022) Status post stent to the LAD complicated by ventricular fibrillation arrest and acute stent thrombosis requiring 2nd emergent PCI. Surgical History Surgical History (Updated 10/21/23 @ 16:53 by Lisa Gama PA-C) History of coronary artery stent placement (10/2022) Stent to the LAD in October 2022. Stent to the May 2023. Family History Family History Sibling Lethal familial cholestatic and pigmentary liver disease Brain tumor Colon cancer Cancer Hypertension Cerebrovascular accident Pulmonary disease Mother Lethal familial cholestatic and pigmentary liver disease Fa
[2023-10-21 11:13] LABS: Troponin I < 0.012 ng/mL (0.000-0.034)
[2023-10-21 12:24] LABS: Appearance Urine Clear (Clear); Bilirubin Urine Negative (Negative); Blood Urine Negative (Negative); Color Urine Yellow (Yellow); Glucose Urine UA Negative (Negative); Ketones Urine Negative (Negative); Leukocyte Esterase Ur Negative LEU/UL (Negative); Nitrate Urine Negative (Negative); Protein Urine Negative (Negative)
[2023-10-21 12:30] LABS: Specific Grav Ur 1.005 (1.001-1.035)
[2023-10-21 12:31] LABS: Add Urine Microscopic? NO
[2023-10-21 13:49] LABS: Troponin I < 0.012 ng/mL (0.000-0.034)
[2023-10-21] MEDS: SODIUM CHLORIDE 0.9% IV 500 ML 999 ML IV CONT (16:49)
--- NOTE | 2023-10-21 16:50 | PM.IMHP ---
H&P: HPI History of Present Illness Date/Time: 10/21/23 18:30 Chief Complaint: Dizziness. Narrative: This is a very pleasant 72-year-old male with history of inferior STEMI in October 2022 status post stent to the LAD complicated by ventricular fibrillation arrest, acute stent thrombosis requiring a 2nd emergent PCI an intra-aortic balloon pump, hypertension, hyperlipidemia, chronic obstructive pulmonary disease with emphysema, and benign prostatic hyperplasia who presented to the emergency department for evaluation of dizziness and lightheadedness. The patient provides the following history. He was in his usual state of health when he got up this morning.?While making breakfast when he developed sudden aching discomfort in the posterior neck associated with dizziness and sweats. Shortly after sitting down the neck discomfort and dizziness resolved but he continued to sweat profusely. He was concerned as he had profuse sweats with his heart attack last year and he felt it would be best to come in for evaluation. He denies lightheadedness, dizziness, chest and pleuritic pain, palpitations, shortness of breath, nausea, and vomiting. In the ED: Blood pressure was 114/48 on arrival the below did drop to 67/46 on orthostatic vital signs. He is in a sinus bradycardia. Labs were significant for WBC count of 14.9, hemoglobin 13.1, platelet 243, BUN 23, creatinine 1.40, troponin less than 0.012. Urine was unremarkable. Brain CT showed old infarcts but no acute findings. Head and neck CTA showed no aneurysm or significant stenosis. Chest x-ray showed emphysema. He was given a 500 mL bolus of normal saline and is being admitted in this setting for further evaluation. Review of Systems Review of Systems: 12 systems were reviewed and are negative except for as per HPI. [facility] Past Medical History Medical History Benign prostatic hyperplasia Cardiac arrest with ventricular fibrillation (10/2022) COPD with emphysema Coronary artery disease Hyperlipidemia Hypertension ST elevation myocardial infarction (STEMI) of inferior wall (10/2022) Status post stent to the LAD complicated by ventricular fibrillation arrest and acute stent thrombosis requiring 2nd emergent PCI. Surgical History Surgical History (Updated 10/21/23 @ 22:02 by Lisa Gama PA-C) History of coronary artery stent placement (10/2022) Stent to the LAD in October 2022. Stent to the in May 2023. Family History Family History Sibling Lethal familial cholestatic and pigmentary liver disease Brain tumor Colon cancer Cancer Hypertension Cerebrovascular accident Pulmonary disease Mother Lethal familial cholestatic and pigmentary liver disease Father Colon cancer Social History Social History Social History: Surrogate medical decision maker: Enma Yves, spouse. Code status: Full code. Smoking packs per day: 1 Smoking cigarettes per day: 20.0 Years smoked: 50 Smoking pack-years: 50.00 Smoking status: Former smoker Alcohol intake: never Substance use: never Substance use type: does not use Do You Feel Safe in your Home?: Yes Lack of Transportation: No Lack of Food: Never True Current Housing: I Have Housing Concerned About Future Housing: No Difficulty Paying Gas/Electric Bills: No Difficulty Paying for Meds: No Currently Unemployed: No Education: High School Diploma/GED Difficulty w/ Childcare or Family Care: No Additional living arrangements comments: Lives with spouse in [place]. Additional occupation/education comments: Retired. Spiritual care concerns: No Meds Home Medications and Allergies Home Medications Medication Instructions Recorded Confirmed Type albuterol sulfate 90 mcg/actuation 1 puff inhalation 4-6XD PRN
--- NOTE | 2023-10-21 17:14 | PC.NURSE ---
dinner tray ordered
--- NOTE | 2023-10-21 17:41 | ADMGEN ---
This patient, Hoang Marinelli, was admitted to 3 Med Surg Room 320-01. Patient/family oriented to hospital policies and general routines including ID bracelet, bed and alarms, visiting hours, pain management, procedures, bathroom and other care routines, personal items, smoking policy, room service/diet, and visiting hours. Information on how to activate the Rapid Response Team has been discussed. Patient/Family are encouraged to report perceived risks to care and to ask questions if they do not understand what they are told or what they should do.
[2023-10-21 19:02] LABS: Troponin I 0.013 ng/mL (0.000-0.034)
[2023-10-21] MEDS: TAMSULOSIN HCL 0.4 MG CAPSULE PO (20:40)
[2023-10-21] MEDS: TICAGRELOR 90 MG TABLET PO (20:41)
[2023-10-21] MEDS: METOPROLOL TARTRATE 12.5 MG TABLET PO (20:41)
[2023-10-21] MEDS: LACTATED RINGERS 1,000 ML 100 ML IV CONT (20:41)
[2023-10-21] MEDS: AMOXICILLIN/CLAVULANATE K 875-125 MG TAB 1 TABLET PO (20:41)
[2023-10-22] VITALS (17 sets, daily range): BP systolic 87–154; BP diastolic 42–80; PULSE 58–97; RESP 16–20; TEMP 36.6–37.9; O2SAT 94–98
[2023-10-22] MEDS: ACETAMINOPHEN 325 MG TABLET 650 MG PO ×2 (05:23→21:01)
[2023-10-22] MEDS: LACTATED RINGERS 1,000 ML 100 ML IV CONT ×2 (05:23→15:34)
[2023-10-22 06:40] LABS: Hematocrit 37.1 % (42.0-52.0); Hemoglobin 12.2 g/dL (14.0-18.0); Mean Corpuscular HGB Conc 32.9 g/dl (32-36); Mean Corpuscular Volume 97.4 fl (80-100); Platelet Count Result 229 k/mm3 (150-375); Red Blood Count 3.81 M/mm3 (4.6-6.20); Red Cell Distribution Width 14.8 % (11.5-14.5); White Blood Count 13.6 K/mm3 (4.5-10.0)
[2023-10-22 07:15] LABS: Anion Gap 2 mmol/L (4-12); Blood Urea Nitrogen 21 mg/dL (9-20); Calcium 8.2 mg/dL (8.4-10.2); Carbon Dioxide 24 mmol/L (22-30); Chloride 110 mmol/L (98-107); Estimated CRCL calculation 45 ml/min; Estimated Glomerular Filt Rate 54; Glucose 107 mg/dL (65-110); Magnesium 1.9 mg/dL (1.6-2.3); Potassium 3.9 mmol/L (3.4-5.0); Sodium 136 mmol/L (137-145)
[2023-10-22] MEDS: FLUTICASONE/UMECLIDIN/VILANTER 100-62.5-25 MCG ELLIPTA 1 PUFF INHALATION (08:20)
[2023-10-22] MEDS: ASPIRIN 81 MG CHEWABLE TABLET PO (08:27)
[2023-10-22] MEDS: PANTOPRAZOLE 40 MG TABLET PO (08:27)
[2023-10-22] MEDS: TICAGRELOR 90 MG TABLET PO ×2 (08:27→21:01)
[2023-10-22] MEDS: THERAPEUTIC MULTIVITAMINS/MINERALS TAB (*BKC) 1 TABLET PO (08:27)
[2023-10-22] MEDS: ATORVASTATIN 40 MG TABLET 80 MG PO (08:27)
--- NOTE | 2023-10-22 14:04 | PM.IMPN ---
Progress Note: A&P Assessment and Plan (1) Orthostatic hypotension: Code(s): I95.1 - Orthostatic hypotension Status: Acute Assessment and Plan: The patient presented to the emergency department for evaluation of sudden-onset dizziness, sweats, and posterior neck pain Orthostatic vital signs were positive in the ED patient given 500 mL bolus. 10/21 Orthostatics: lying 101/50, sitting 101/52, standing 87/42. Patient's hypertensive medications put on hold. Patient had another episode of sweating while laying in bed early this morning. He also has an associated cough with yellow sputum production. Chest x-ray on 10/21/2023 showing emphysema. (2) Increase in creatinine: Status: Acute Assessment and Plan: His creatinine is elevated from baseline and I suspect he has some component of dehydration as he admits to not staying hydrated. Continue judicious IV fluid rehydration Monitor kidney function. (3) Coronary artery disease: Code(s): I25.10 - Atherosclerotic heart disease of [place] coronary artery without angina pectoris Status: Acute Assessment and Plan: - Patient and states that he has never really had high blood pressure but rather he is on metoprolol and Lasix for cardiac reasons. - Lasix and metoprolol on hold due to positive orthostatics. - Will resume once resolved. (4) Hyperlipidemia: Code(s): E78.5 - Hyperlipidemia, unspecified Status: Acute Assessment and Plan: Continue home medication (5) COPD with emphysema: Code(s): J43.9 - Emphysema, unspecified Status: Acute Assessment and Plan: - Continue trilogy - Chest x-ray showing emphysema. - Chest CT ordered due to cough and yellow sputum production which is changed from baseline. (6) Benign prostatic hyperplasia: Code(s): N40.0 - Benign prostatic hyperplasia without lower urinary tract symptoms Status: Acute Assessment and Plan: - continue tamsulosin Subjective Date/time seen: 10/22/23 14:04 Interval history: patient states this morning around 5:00 a.m. he experienced a repeat episode of profuse sweating. at that time he denies any dizziness, lightheadedness, chest pain or shortness of breath. Patient states that this happened for approximately 30 minutes. He does complain of an increased cough with a change in sputum color from white to yellow. He did have elevated temperature this morning of 100.3. Will order chest CT. He is not requiring any oxygen supplementation at this time. Orthostatics positive again this morning. Exam Narrative: GENERAL: Comfortable, no acute distress HENMT: moist mucous membranes EYES: EOM intact b/l NECK: no lymphadenopathy RESPIRATORY: Distant lung sounds to auscultation, mild wheezing in the lung bases CARDIO: Regular rate and rhythm GI: soft, nontender, bowel sounds present SKIN/EXTREMITIES: no rashes, no edema, no redness or tenderness NEURO: PROM intact, answers questions appropriately, A&O x4 Objective Data Vital Signs Vital Signs: Vital Signs - 24 hr 10/21/23 14:21 10/21/23 15:24 10/21/23 16:52 Temperature Pulse Rate 57 L 57 L 61 Respiratory Rate 14 20 16 Blood Pressure 126/51 L 139/83 142/60 H Pulse Oximetry 99 99 100 Oxygen Delivery 10/21/23 18:00 10/21/23 19:59 10/21/23 20:41 Temperature 97.3 F L Pulse Rate 66 74 Respiratory Rate 18 Blood Pressure 133/97 H Pulse Oximetry 99 Oxygen Delivery Room Air 10/21/23 20:05 10/21/23 21:35 10/21/23 20:10 Temperature 99.7 F H Pulse Rate 62 Respiratory Rate 20 Blood Pressure 117/58 L 122/66 107/61 Pulse Oximetry 94 Oxygen Delivery 10/21/23 20:15 10/22/23 05:23 10/22/23 05:35 Temperature 100.1 F H 100.0 F H Pulse Rate 66 Respiratory Rate 20 Blood Pressure 96/53 L 140/60 Pulse Oximetry 94 Oxygen Delivery 10/22/23 08:22 10/22/23 08:25
[2023-10-22] MEDS: TAMSULOSIN HCL 0.4 MG CAPSULE PO (17:01)
[2023-10-22] MEDS: IPRATROPIUM NASAL SPRAY 0.03% 15 ML BOTTLE 2 SPRAY NASAL (17:01)
[2023-10-22] MEDS: BENZOCAINE/MENTHOL (*BKC) 18 EA LOZENGE 1 LOZENGE PO (17:02)
[2023-10-22] MEDS: IPRATROPIUM 0.5 MG/ALBUTEROL SULFATE 2.5 MG AMPUL.NEB 3 ML INHALATION (20:16)
[2023-10-22] MEDS: traZODone HCL 50 MG TABLET 100 MG PO (21:01)
[2023-10-23] VITALS (18 sets, daily range): BP systolic 108–156; BP diastolic 57–66; PULSE 61–87; RESP 14–20; TEMP 36.7–37.5; O2SAT 94–98
[2023-10-23] MEDS: IPRATROPIUM 0.5 MG/ALBUTEROL SULFATE 2.5 MG AMPUL.NEB 3 ML INHALATION ×4 (01:01→20:24)
[2023-10-23] MEDS: LACTATED RINGERS 1,000 ML 100 ML IV CONT (05:50)
[2023-10-23 06:26] LABS: Hematocrit 39.2 % (42.0-52.0); Hemoglobin 12.8 g/dL (14.0-18.0); Mean Corpuscular HGB Conc 32.7 g/dl (32-36); Mean Corpuscular Hemoglobin 31.7 pg (26-34); Platelet Count Result 224 k/mm3 (150-375); Red Blood Count 4.04 M/mm3 (4.6-6.20); Red Cell Distribution Width 14.7 % (11.5-14.5); White Blood Count 13.3 K/mm3 (4.5-10.0)
[2023-10-23 06:38] LABS: Anion Gap 3 mmol/L (4-12); Blood Urea Nitrogen 16 mg/dL (9-20); Carbon Dioxide 23 mmol/L (22-30); Chloride 110 mmol/L (98-107); Potassium 3.9 mmol/L (3.4-5.0); Sodium 136 mmol/L (137-145)
[2023-10-23 06:39] LABS: Calcium 8.3 mg/dL (8.4-10.2); Estimated CRCL calculation 48 ml/min; Estimated Glomerular Filt Rate 59; Glucose 117 mg/dL (65-110)
[2023-10-23] MEDS: FLUTICASONE/UMECLIDIN/VILANTER 100-62.5-25 MCG ELLIPTA 1 PUFF INHALATION (07:16)
--- NOTE | 2023-10-23 07:31 | PM.IMPN ---
Progress Note: A&P Assessment and Plan (1) Pneumonia: Code(s): J18.9 - Pneumonia, unspecified organism Status: Acute Assessment and Plan: Patient presenting to the ED due to dizziness and positive orthostatic hypotension. He has a worsening cough from his baseline as well as change in sputum color. Sputum typically white to clear and is now turned yellow. CT of the chest shows a new right upper lobe nodule suspicious for malignancy. Bibasilar dependent atelectasis with subpleural ground-glass opacities. Pneumonia and/or atelectasis. CT of the abdomen pelvis performed to rule out metastases. Showing ground-glass opacities suspicious for pneumonia. White blood cell count 14.9, 13.6, 13.3 Patient started on IV Rocephin and azithromycin on 10/23/2023. Sputum culture ordered. DuoNebs q.6 hours Mucinex p.r.n. (2) Lung nodule: Code(s): R91.1 - Solitary pulmonary nodule Status: Acute Assessment and Plan: Chest CT on 08/29/2023 showed several scattered tiny peripheral pulmonary nodules measuring 1-[address] on 10/22/2023 showed a new right upper lobe nodule suspicious for malignancy measuring 10 mm in size. Concern for rapid growth of nodule in just 1 month. Oncology consulted. (3) Orthostatic hypotension: Code(s): I95.1 - Orthostatic hypotension Status: Acute Assessment and Plan: The patient presented to the emergency department for evaluation of sudden-onset dizziness, sweats, and posterior neck pain Orthostatic vital signs were positive in the ED patient given 500 mL bolus. 10/21 Orthostatics: lying 101/50, sitting 101/52, standing 87/42. Patient's hypertensive medications put on hold. 10/22 orthostatics are still positive but he is no longer hypotensive. (4) Increase in creatinine: Status: Acute Assessment and Plan: His creatinine is elevated from baseline and I suspect he has some component of dehydration as he admits to not staying hydrated. 10/22 BUN and creatinine 16/1.2. IV fluids discontinued. (5) Coronary artery disease: Code(s): I25.10 - Atherosclerotic heart disease of [place] coronary artery without angina pectoris Status: Acute Assessment and Plan: - Patient and states that he has never really had high blood pressure but rather he is on metoprolol and Lasix for cardiac reasons. - Lasix and metoprolol on hold due to positive orthostatics. - Will resume once resolved. (6) Hyperlipidemia: Code(s): E78.5 - Hyperlipidemia, unspecified Status: Acute Assessment and Plan: Continue home medication (7) COPD with emphysema: Code(s): J43.9 - Emphysema, unspecified Status: Acute Assessment and Plan: - Continue trilogy - Chest x-ray showing emphysema. - Chest CT ordered due to cough and yellow sputum production which is changed from baseline. (8) Benign prostatic hyperplasia: Code(s): N40.0 - Benign prostatic hyperplasia without lower urinary tract symptoms Status: Acute Assessment and Plan: - continue tamsulosin Subjective Date/time seen: 10/23/23 07:31 Interval history: Patient complains worsening cough. He was started on IV antibiotics this morning. Waiting on a Oncology consult. Patient denies any dizziness, lightheadedness or feeling like he is going to lose consciousness when he stands. His orthostatics are still positive but it he is no longer hypotensive. Exam Narrative: GENERAL: Comfortable, no acute distress HENMT: moist mucous membranes EYES: EOM intact b/l NECK: no lymphadenopathy RESPIRATORY: Distant lung sounds to auscultation, mild wheezing in the lung bases CARDIO: Regular rate and rhythm GI: soft, nontender, bowel sounds present SKIN/EXTREMITIES: no rashes, no edema, no redness or tenderness NEURO: PROM intact, answers questions appropriately, A&O x4 Obj
[2023-10-23] MEDS: ATORVASTATIN 40 MG TABLET 80 MG PO (09:23)
[2023-10-23] MEDS: THERAPEUTIC MULTIVITAMINS/MINERALS TAB (*BKC) 1 TABLET PO (09:23)
[2023-10-23] MEDS: guaiFENesin 12 HR 600 MG TABCR 1200 MG PO ×2 (09:23→20:35)
[2023-10-23] MEDS: PANTOPRAZOLE 40 MG TABLET PO (09:23)
[2023-10-23] MEDS: ASPIRIN 81 MG CHEWABLE TABLET PO (09:23)
[2023-10-23] MEDS: AZITHROMYCIN 500 MG/NS 250 ML 500 MG/250 ML BAG 250 MG IVPB (09:26)
[2023-10-23] MEDS: FINASTERIDE 5 MG TABLET PO (09:29)
[2023-10-23] MEDS: TICAGRELOR 90 MG TABLET PO ×2 (09:30→20:35)
[2023-10-23] MEDS: TAMSULOSIN HCL 0.4 MG CAPSULE PO (17:02)
[2023-10-23] MEDS: METOPROLOL TARTRATE 12.5 MG TABLET PO (20:38)
[2023-10-23] MEDS: traZODone HCL 50 MG TABLET 100 MG PO (20:44)
[2023-10-24] VITALS (23 sets, daily range): BP systolic 90–147; BP diastolic 54–68; PULSE 65–83; RESP 12–24; TEMP 36.6–37.9; O2SAT 93–96
[2023-10-24] MEDS: IPRATROPIUM 0.5 MG/ALBUTEROL SULFATE 2.5 MG AMPUL.NEB 3 ML INHALATION ×4 (01:46→21:30)
[2023-10-24] MEDS: FLUTICASONE/UMECLIDIN/VILANTER 100-62.5-25 MCG ELLIPTA 1 PUFF INHALATION (07:38)
--- NOTE | 2023-10-24 08:14 | PM.IMPN ---
Progress Note: A&P Assessment and Plan (1) Pneumonia: Code(s): J18.9 - Pneumonia, unspecified organism Status: Acute Assessment and Plan: Patient presenting to the ED due to dizziness and positive orthostatic hypotension. He has a worsening cough from his baseline as well as change in sputum color. Sputum typically white to clear and is now turned yellow. CXR: Emphysema Chest CT on 10/22/2023 showed a new right upper lobe nodule suspicious for malignancy measuring 10 mm in size. Bibasilar dependent atelectasis with subpleural ground glass opacities and interlobular septal thickening predominantly affecting the lower lobes. Considerations include atypical pneumonia and/or atelectasis. Trace pleural and pericardial effusions. - Risk Factors: none - Complicating Factors: none - started on CAP tx: azithromycin and ceftriaxone - Viral PCR: negative for Flu/COVID/RSV - no supplemental O2 requirement - supportive treatment tyl and ibu prn nebs prn tesslon perles prn Mucinex p.r.n. - trend labs (2) Lung nodule: Code(s): R91.1 - Solitary pulmonary nodule Status: Acute Assessment and Plan: Chest CT on 08/29/2023 showed several scattered tiny peripheral pulmonary nodules measuring 1-[address] on 10/22/2023 showed a new right upper lobe nodule suspicious for malignancy measuring 10 mm in size. Patient is a former smoker for 50+ years. - Concern for rapid growth of nodule in just 1 month. - CT of the abdomen pelvis performed to rule out metastases. Showing ground-glass opacities suspicious for pneumonia. - Oncology consulted. Plan was to perform a CT guided lung biopsy, however radiology felt nodule was too small at this time. Per Dr. Paige patient will follow up in the office for a PET scan (3) Orthostatic hypotension: Code(s): I95.1 - Orthostatic hypotension Status: Acute Assessment and Plan: The patient presented to the emergency department for evaluation of sudden-onset dizziness, sweats, and posterior neck pain - Orthostatic vital signs were positive in the ED patient given 500 mL bolus. - 10/21 Orthostatics: lying 101/50, sitting 101/52, standing 87/42. - 10/23 Orthostatics: lying 111/64, sitting 107/57, standing 90/62. Per RN patient remained asymptomatic at that time. He denied dizziness, lightheadedness and vision changes. - Patient's hypertensive medications remain on hold. - Monitor (4) Increase in creatinine: Status: Acute Assessment and Plan: His creatinine is elevated from baseline likely related to dehydration as he admits to not staying hydrated. - 10/22 BUN and creatinine 16/1.2. - IV fluids discontinued. - Continue to monitor BUN/Cr 12/.1 on am labs. Resolved (5) Normocytic anemia: Code(s): D64.9 - Anemia, unspecified Status: Acute Assessment and Plan: H/H 12.2/37.1 on admission. No signs of active bleeding. Patient has never had a colonoscopy. - Heme/onc evaluated patient and ordered iron studies, B12, STR, and MMA for evaluation. Iron studies showed iron deficiency anemia. Heme/onc ordered IV Venofer now and patient will start PO iron supplements twice daily. - Continue to monitor (6) Coronary artery disease: Code(s): I25.10 - Atherosclerotic heart disease of [place] coronary artery without angina pectoris Status: Acute Assessment and Plan: Patient and states that he does not have high blood pressure but rather he remains on metoprolol and Lasix for cardiac reasons. - Lasix and metoprolol on hold due to positive orthostatics. - Will resume once resolved. (7) Hyperlipidemia: Code(s): E78.5 - Hyperlipidemia, unspecified Status: Acute Assessment and Plan: Continue home medication. - Atorvastatin 80 mg daily (8) COPD with emphysema: Code(s): J43.9 - Emphysema, unspecified Status: Acute Assessment and Plan: In no
[2023-10-24 09:34] LABS: Basophils Absolute Auto 0.1 K/mm3 (0.0-0.1); Basophils Percent Auto 0.5 % (0.2-1.2); Eosinophils Absolute Auto 0.3 K/mm3 (0-0.3); Eosinophils Percent Auto 2.3 % (0-4.4); Hematocrit 39.2 % (42.0-52.0); Hemoglobin 12.5 g/dL (14.0-18.0); Immature Granulocyte Absolute 0.06 K/mm3 (0.00-0.031); Immature Granulocyte Percent A 0.5 % (0-0.5); Lymphocytes Absolute Auto 1.17 K/mm3 (0.9-3.2); Lymphocytes Percent Auto 9.4 % (18.3-44.2); Mean Corpuscular HGB Conc 31.9 g/dl (32-36); Mean Corpuscular Hemoglobin 31.3 pg (26-34); Mean Platelet Volume 10.1 fl (7.4-10.4); Monocytes Absolute Auto 1.3 K/mm3 (0.1-0.6); Monocytes Percent Auto 10.5 % (2.6-8.5); Neutrophils Absolute Auto 9.6 K/mm3 (1.3-6.7); Neutrophils Percent Auto 76.8 % (45.5-73.1); Platelet Count Result 232 k/mm3 (150-375); Red Cell Distribution Width 14.5 % (11.5-14.5); White Blood Count 12.4 K/mm3 (4.5-10.0)
[2023-10-24] MEDS: ASPIRIN 81 MG CHEWABLE TABLET PO (09:46)
[2023-10-24] MEDS: METOPROLOL TARTRATE 12.5 MG TABLET PO ×2 (09:47→20:59)
[2023-10-24] MEDS: THERAPEUTIC MULTIVITAMINS/MINERALS TAB (*BKC) 1 TABLET PO (09:47)
[2023-10-24] MEDS: PANTOPRAZOLE 40 MG TABLET PO (09:47)
[2023-10-24] MEDS: guaiFENesin 12 HR 600 MG TABCR 1200 MG PO ×2 (09:47→20:59)
[2023-10-24] MEDS: ATORVASTATIN 40 MG TABLET 80 MG PO (09:47)
[2023-10-24] MEDS: FINASTERIDE 5 MG TABLET PO (09:47)
[2023-10-24] MEDS: TICAGRELOR 90 MG TABLET PO ×2 (09:47→20:59)
[2023-10-24] MEDS: AZITHROMYCIN 500 MG/NS 250 ML 500 MG/250 ML BAG 250 MG IVPB (09:50)
--- NOTE | 2023-10-24 10:01 | PDONCCN ---
HPI - Date of Consult Date/Time: 10/24/23 17:56 <ClarenceJuanpablokailey Oliveira - 10/24/23 17:59> 10/24/23 10:01 <Pam Chino - 10/24/23 10:07> Requesting Physician: Liliya Rico PA-C <Juanpablo Lima - 10/24/23 17:59> Liliya Rico PA-C <Pam Chino 10/24/23 10:07> Primary Care Provider: Chandu Schroeder MD <Juanpablo Lima - 10/24/23 17:59> Chandu Schroeder MD <MattiPam 10/24/23 10:07> - Consult Narrative Reason for consult: Lung nodule <Pam Chino 10/24/23 10:07> Narrative: Hoang Marinelli is a 72 year old male <Juanpablo Lima - 10/24/23 17:59> Hoang Marinelli is a 72 year old male with a past medical history of HTN, HLD, COPD, emphysema, BPH, STEMI s/p arrest ~ 1 yr ago, whom is currently undergoing cardiac rehab. He was admitted to the hospital after presenting with dizziness/lightheadedness and perfuse sweating. He felt as if he should be evaluated because these symptoms were similar to when he had a heart attack last year. He was found to be dehydrated with orthostatic hypotension, PNA, and a new lung nodule suspicious for malignancy. He reports a new cough as well with yellow sputum production. He follows with Dr Sneed for pulmonology. He is a former smoker for 50+ years and quit ~1 year ago. He last CT lung did now show any evidence of this nodule which is concerning. He denies any personal history of malignancy, but has an extensive family history. He denies any weight loss/gain, bleeding, night sweats or recent infections. He reports fatigue, fevers, shortness of breath and productive cough. <Pam Chino 10/24/23 10:07> Review of Systems - Review of Systems All systems reviewed & are unremarkable except as noted in HPI and bel <Pam Chino 10/24/23 10:09> [facility] Medical History: Medical History (Last Reviewed 10/21/23 @ 21:59 by Lisa Gama PA-C) Benign prostatic hyperplasia Cardiac arrest with ventricular fibrillation Onset Date: 10/2022 COPD with emphysema Coronary artery disease Hyperlipidemia Hypertension ST elevation myocardial infarction (STEMI) of inferior wall Onset Date: 10/2022 Status post stent to the LAD complicated by ventricular fibrillation arrest and acute stent thrombosis requiring 2nd emergent PCI. <Juanpablo Lima - 10/24/23 17:59> Medical History (Last Reviewed 10/21/23 @ 21:59 by Lisa Gama PA-C) Benign prostatic hyperplasia Cardiac arrest with ventricular fibrillation Onset Date: 10/2022 COPD with emphysema Coronary artery disease Hyperlipidemia Hypertension ST elevation myocardial infarction (STEMI) of inferior wall Onset Date: 10/2022 Status post stent to the LAD complicated by ventricular fibrillation arrest and acute stent thrombosis requiring 2nd emergent PCI. <Pam Chino 10/24/23 10:07> Surgical History: Surgical History (Last Updated 10/21/23 @ 22:02 by Lisa Gama PA-C) History of coronary artery stent placement Onset Date: 10/2022 Stent to the LAD in October 2022. Stent to the in May 2023. <Juanpablo Lima - 10/24/23 17:59> Surgical History (Last Updated 10/21/23 @ 22:02 by Lisa Gama PA-C) History of coronary artery stent placement Onset Date: 10/2022 Stent to the LAD in October 2022. Stent to the in May 2023. <Pam Chino 10/24/23 10:07> Family History: Family History (Last Reviewed 10/21/23 @ 21:59 by Lisa Gama PA-C) Sibling Lethal familial cholestatic and pigmentary liver disease Brain tumor Colon cancer Cancer Hypertension Cerebrovascular accident Pulmonary disease Mother Lethal familial cholestatic and pigmentary liver disease Father Colon cancer <Juanpablo Lima - 10/24/23 17:59> Family History (Last Reviewed 10/21/23 @ 21:59 by Lisa Gama PA-C) Sibling Lethal
[2023-10-24 10:13] LABS: Erythrocyte Sedimentation Rate 57 mm/hr (0-20)
[2023-10-24 10:18] LABS: Alanine Aminotransferase 26 U/L (6-50); Albumin Level 3.3 g/dL (3.5-5.1); Alkaline Phosphatase 95 U/L (38-126); Anion Gap 5 mmol/L (4-12); Aspartate Amino Transferase 32 U/L (17-59); Bilirubin,Total 1.1 mg/dL (0.2-1.3); Blood Urea Nitrogen 12 mg/dL (9-20); Calcium 8.2 mg/dL (8.4-10.2); Carbon Dioxide 23 mmol/L (22-30); Chloride 107 mmol/L (98-107); Estimated CRCL calculation 52 ml/min; Estimated Glomerular Filt Rate > 60; Glucose 126 mg/dL (65-110); Potassium 3.8 mmol/L (3.4-5.0); Sodium 135 mmol/L (137-145)
[2023-10-24 10:22] LABS: CRP 16.9 mg/dL (<1.0)
[2023-10-24 10:29] LABS: Iron 26 ug/dL (49-181); Percent Iron Saturation 13 % (20-50)
[2023-10-24 10:55] LABS: Folic Acid 15.6 ng/mL (2.76->20)
[2023-10-24] MEDS: TAMSULOSIN HCL 0.4 MG CAPSULE PO (17:58)
[2023-10-24] MEDS: IRON SUCROSE COMPLEX 500 MG in SODIUM CHLORIDE 0.9% IV 250 ML 79 MG IVPB (17:58)
[2023-10-24] MEDS: FERROUS SULFATE 325 MG TABLET DR PO (17:58)
[2023-10-24] MEDS: ENOXAPARIN 40 MG/0.4 ML SYRINGE SUB-Q (18:00)
[2023-10-24] MEDS: traZODone HCL 50 MG TABLET 100 MG PO (21:57)
[2023-10-25] VITALS (12 sets, daily range): BP systolic 107–158; BP diastolic 57–70; PULSE 66–90; RESP 18–20; TEMP 36.7–37.3; O2SAT 94–97
[2023-10-25 06:27] LABS: Basophils Absolute Auto 0.1 K/mm3 (0.0-0.1); Basophils Percent Auto 0.7 % (0.2-1.2); Eosinophils Absolute Auto 0.5 K/mm3 (0-0.3); Eosinophils Percent Auto 5.1 % (0-4.4); Hematocrit 37.9 % (42.0-52.0); Hemoglobin 12.1 g/dL (14.0-18.0); Immature Granulocyte Absolute 0.09 K/mm3 (0.00-0.031); Immature Granulocyte Percent A 0.9 % (0-0.5); Lymphocytes Absolute Auto 1.01 K/mm3 (0.9-3.2); Lymphocytes Percent Auto 9.7 % (18.3-44.2); Mean Corpuscular HGB Conc 31.9 g/dl (32-36); Mean Corpuscular Hemoglobin 31.7 pg (26-34); Mean Corpuscular Volume 99.2 fl (80-100); Mean Platelet Volume 10.2 fl (7.4-10.4); Monocytes Absolute Auto 1.2 K/mm3 (0.1-0.6); Monocytes Percent Auto 11.2 % (2.6-8.5); Neutrophils Absolute Auto 7.5 K/mm3 (1.3-6.7); Neutrophils Percent Auto 72.4 % (45.5-73.1); Platelet Count Result 246 k/mm3 (150-375); Red Blood Count 3.82 M/mm3 (4.6-6.20); Red Cell Distribution Width 14.4 % (11.5-14.5); White Blood Count 10.4 K/mm3 (4.5-10.0)
[2023-10-25 06:32] LABS: Alanine Aminotransferase 51 U/L (6-50); Alkaline Phosphatase 97 U/L (38-126); Anion Gap 4 mmol/L (4-12); Aspartate Amino Transferase 52 U/L (17-59); Bilirubin,Total 0.8 mg/dL (0.2-1.3); Blood Urea Nitrogen 15 mg/dL (9-20); Calcium 8.3 mg/dL (8.4-10.2); Carbon Dioxide 22 mmol/L (22-30); Chloride 110 mmol/L (98-107); Estimated CRCL calculation 48 ml/min; Estimated Glomerular Filt Rate 59; Glucose 97 mg/dL (65-110); Potassium 4.1 mmol/L (3.4-5.0); Sodium 136 mmol/L (137-145)
[2023-10-25] MEDS: IPRATROPIUM 0.5 MG/ALBUTEROL SULFATE 2.5 MG AMPUL.NEB 3 ML INHALATION (08:15)
[2023-10-25] MEDS: FLUTICASONE/UMECLIDIN/VILANTER 100-62.5-25 MCG ELLIPTA 1 PUFF INHALATION (08:15)
[2023-10-25] MEDS: AZITHROMYCIN 500 MG/NS 250 ML 500 MG/250 ML BAG 250 MG IVPB (08:51)
[2023-10-25] MEDS: ASPIRIN 81 MG CHEWABLE TABLET PO (08:53)
[2023-10-25] MEDS: FERROUS SULFATE 325 MG TABLET DR PO (08:54)
[2023-10-25] MEDS: METOPROLOL TARTRATE 12.5 MG TABLET PO (08:54)
[2023-10-25] MEDS: guaiFENesin 12 HR 600 MG TABCR 1200 MG PO (08:54)
[2023-10-25] MEDS: PANTOPRAZOLE 40 MG TABLET PO (08:54)
[2023-10-25] MEDS: THERAPEUTIC MULTIVITAMINS/MINERALS TAB (*BKC) 1 TABLET PO (08:54)
[2023-10-25] MEDS: ATORVASTATIN 40 MG TABLET 80 MG PO (08:54)
[2023-10-25] MEDS: TICAGRELOR 90 MG TABLET PO (08:55)
[2023-10-25] MEDS: FINASTERIDE 5 MG TABLET PO (08:55)
--- NOTE | 2023-10-25 14:08 | PM.DS ---
DS: Admitting Diagnosis Discharge Date 10/25/2023 Admitting Diagnosis Pneumonia Lung nodule Orthostatic hypotension Increase in creatinine Normocytic anemia Coronary artery disease Hyperlipidemia Emphysema Benign prostatic hyperplasia Heart failure with reduced ejection fraction DS: Discharge Diagnosis Discharge Diagnosis (1) Pneumonia: Code(s): J18.9 - Pneumonia, unspecified organism Status: Acute (2) Lung nodule: Code(s): R91.1 - Solitary pulmonary nodule Status: Acute (3) Orthostatic hypotension: Code(s): I95.1 - Orthostatic hypotension Status: Acute (4) Increase in creatinine: Status: Acute (5) Normocytic anemia: Code(s): D64.9 - Anemia, unspecified Status: Acute (6) Coronary artery disease: Code(s): I25.10 - Atherosclerotic heart disease of [place] coronary artery without angina pectoris Status: Acute (7) Hyperlipidemia: Code(s): E78.5 - Hyperlipidemia, unspecified Status: Acute (8) COPD with emphysema: Code(s): J43.9 - Emphysema, unspecified Status: Acute (9) Benign prostatic hyperplasia: Code(s): N40.0 - Benign prostatic hyperplasia without lower urinary tract symptoms Status: Acute (10) HFrEF (heart failure with reduced ejection fraction): Code(s): I50.20 - Unspecified systolic (congestive) heart failure Status: Acute DS: Summary Hospital Course Reason for hospitalization: Pneumonia Lung nodule Orthostatic hypotension Increase in creatinine Normocytic anemia Coronary artery disease Hyperlipidemia Emphysema Benign prostatic hyperplasia Heart failure with reduced ejection fraction Hospital Course: 72-year-old male with history of inferior STEMI in October 2022 status post stent to the LAD complicated by ventricular fibrillation arrest, acute stent thrombosis requiring a 2nd emergent PCI an intra-aortic balloon pump, hypertension, hyperlipidemia, chronic obstructive pulmonary disease with emphysema, and benign prostatic hyperplasia who presented to the emergency department for evaluation of dizziness and lightheadedness and worsening cough. A chest CT revealed pneumonia and patient was started on IV antibiotics at that time. He will complete the antibiotic course outpatient. The CT also showed a new right upper lobe nodule suspicious for malignancy measuring 10 mm in size. Oncology consulted. Plan was to perform a CT guided lung biopsy, however radiology felt nodule was too small at this time. Per Dr. Paige patient will follow up in the office for a PET scan in 1 week. Patient found to have iron deficiency anemia and was started on supplementation per heme/onc. Patient was noted to have orthostatic hypotension throughout his admission. He denied dizziness, lightheadedness and vision changes with each orthostatic blood pressure despite them being positive. Another set of orthostatic blood pressures performed today which were negative. Prior to discharge patient was able to stand from his bed and ambulate to the [place] and back with the use of his walker. He denied weakness, feeling off balance,lightheadedness, and dizziness. Discussed with the patient that when he undergoes positional changes to ensure he is not dizzy or lightheaded prior to ambulation. He states understanding. Will hold patients furosemide and potassium supplement at this time as his blood pressures had been low. He will obtain a CMP to monitor potassium and follow up with PCP in regards to restarting these medications. Patient discharged home with family in stable condition. He is to follow up with oncology in 1 week for a PET scan and PCP in 1 week to discuss admission. Status at Discharge Functional status at discharge: uses cane/walker Time Spent with Patient Time attestation: Total time spent providing and/or coordinating discharge services: Time spent: Greater than 30 minutes Exam Narrative: AF HR 69 RR 18 SpO2 97 BP 107
== END 2023-10-25 14:20 | disposition home or self-care (01) | DRG 312 ==
LOC: ANHED 10:11 → ANH3MEDSUR 17:21
PROVIDERS: Emergency Medicine; Internal Medicine Critical Care Medicine; Nurse Practitioner Family; Physician Assistant; Admitting Provider Family Medicine; Emergency Provider Student in an Organized Health Care Education/Training Program; PCP Family Medicine; Visit Provider Student in an Organized Health Care Education/Training Program
DX: I95.1 Orthostatic hypotension (principal); J18.9 Pneumonia, unspecified organism; I50.22 Chronic systolic (congestive) heart failure; I25.10 Atherosclerotic heart disease of native coronary artery without angina pectoris; I10 Essential (primary) hypertension; D50.9 Iron deficiency anemia, unspecified; J43.9 Emphysema, unspecified; E86.0 Dehydration; E78.5 Hyperlipidemia, unspecified; N40.0 Benign prostatic hyperplasia without lower urinary tract symptoms; M54.2 Cervicalgia; R91.1 Solitary pulmonary nodule; I25.2 Old myocardial infarction; Z95.5 Presence of coronary angioplasty implant and graft; Z79.82 Long term (current) use of aspirin; Z79.02 Long term (current) use of antithrombotics/antiplatelets; Z86.74 Personal history of sudden cardiac arrest; Z87.891 Personal history of nicotine dependence
CPT/HCPCS: 36415; 70450; 70496; 70498; 71046; 71250; 74176; 80048; 80053; 81003; 82607; 82728; 82746; 83540; 83550; 83735; 84484; 85025; 85027; 85652; 86140; 87070; 87205; 93005; 94640; 96360; 99285; A9270; G0378; J0456; J0696; J1650; J1756; J7040; J7050; J7120; Q9967

== ENCOUNTER 2023-11-12 08:45 | Outpatient (RCR) | payer MEDICARE, SELFPAY ==
[2023-08-03 11:48] VITALS: PULSE 52
== END 2023-11-12 10:40 | disposition home or self-care (01) ==
LOC: ANHCPREHAB 08:45
PROVIDERS: PCP Family Medicine; Visit Provider Internal Medicine Cardiovascular Disease
DX: Z95.5 Presence of coronary angioplasty implant and graft (principal)
CPT/HCPCS: 93798

== ENCOUNTER 2023-11-20 11:58 | Outpatient (CLI) | payer MEDICARE, SELFPAY ==
--- NOTE | ~2023-11-20 | PE_ITS ---
EXAMINATION: PET skull to mid thigh DATE: 11/20/2023 14:07 INDICATION: Malignant neoplasm of upper lobe of right lung. TECHNIQUE: Blood glucose level was 91 mg/dL. 10.415 mCi of 18-fluorodeoxyglucose (18-FDG) was adminis tered i.v. Low dose computed tomography (CT) images were acquired from the base of the brain to the p roximal thighs for attenuation correction and anatomic localization. Automated exposure control was e mployed. Dose-length product (DLP) was 1159 mGy-cm. Positron emission tomography (PET) images were ac quired in the same distribution. COMPARISON: CT chest, abdomen, and pelvis 10/22/2023 FINDINGS: Head/neck: There are no pathologically enlarged lymph nodes. Chest: There is moderate emphysema. There is a 7 mm nodule with maximum SUV of 2.5 in right lung uppe r lobe. There is mild atelectasis bilaterally. No pleural effusion. The heart size is normal. There a re coronary artery calcifications. No pericardial effusion. There is bilateral gynecomastia. Abdomen/pelvis/proximal thighs: There is a 6 mm cyst in the liver. The gallbladder, spleen, pancreas, adrenal glands, and kidneys are normal. There is calcified atherosclerosis of the aorta and many of the other arteries. There is an umbilical hernia containing fat. There is diverticulosis of the colon without evidence of diverticulitis. There are no dilated loops of bowel. The prostate is mildly enla rged. There is a left inguinal hernia containing fat. There is a mildly enlarged left common iliac no de measuring 19 x 12 mm without increased activity, likely reactive. There is no free intraperitoneal fluid. IMPRESSION: 1. 7 mm pulmonary nodule with borderline increased activity in right lung upper lobe, which measured 8 mm on 10/22/2023 and was not present on 08/29/2023. This finding is most likely infection. Noncontrast low-dose chest CT is recommended in 6 months. 2. Moderate emphysema. Reviewed, dictated and finalized at location A. IMPRESSION: 1. 7 mm pulmonary nodule with borderline increased activity in right lung upper lobe, which measured 8 mm on 10/22/2023 and was not present on 08/29/2023. This f inding is most likely infection. Noncontrast low-dose chest CT is recommended i n 6 months. 2. Moderate emphysema.
[2023-11-20 12:32] LABS: Glucose Point of Care 91 mg/dl (65-105)
== END 2023-11-20 11:59 | disposition home or self-care (01) ==
LOC: ANHIMG 12:02
PROVIDERS: PCP Family Medicine; Visit Provider Internal Medicine Hematology & Oncology
DX: C34.11 Malignant neoplasm of upper lobe, right bronchus or lung (principal); R91.1 Solitary pulmonary nodule; J43.9 Emphysema, unspecified
CPT/HCPCS: 78815; A9552

== ENCOUNTER 2024-04-04 08:39 | Outpatient (CLI) | payer MEDICARE, SELFPAY ==
--- NOTE | ~2024-04-04 | CT_ITS ---
CT Scan of the Chest without Contrast: Clinical Indication: Lung cancer Technique: Contiguous sections were acquired throughout the chest without intravenous contrast. Dose reduction technique was used on this scan by utilizing automated exposure control and iterative recon struction technique. The dose-length product (DLP) was 299.80 mGy-cm. COMPARISON: 10/22/2023 Findings: There is no evidence of any significant mediastinal, hilar or axillary lymphadenopathy. Coronary antoine ry calcifications are present. No pleural effusion. Minimal pericardial fluid noted.. Severe emphysema present. Right upper lobe pulmonary nodule is decreased, now measuring [address] (axial image 33). Images through the upper abdomen reveal no abnormalities. Impression: Decreased right upper lobe pulmonary nodule, now measuring 5 mm. Severe emphysema. Reviewed, dictated and finalized at location . SSIONS COUNSELOR Impression: Decreased right upper lobe pulmonary nodule, now measuring 5 mm. Severe emphysema.
== END 2024-04-04 08:40 | disposition home or self-care (01) ==
LOC: ANHIMG 08:41
PROVIDERS: PCP Family Medicine; Visit Provider Internal Medicine Hematology & Oncology
DX: R91.1 Solitary pulmonary nodule (principal); J43.8 Other emphysema; C34.11 Malignant neoplasm of upper lobe, right bronchus or lung
CPT/HCPCS: 71250

== ENCOUNTER 2024-04-09 10:34 | Outpatient (CLI) | payer MEDICARE, SELFPAY ==
[2024-04-09 10:59] LABS: Basophils Absolute Auto 0.1 K/mm3 (0.0-0.1); Eosinophils Absolute Auto 0.3 K/mm3 (0-0.3); Hematocrit 43.6 % (42.0-52.0); Immature Granulocyte Absolute 0.07 K/mm3 (0.00-0.031); Immature Granulocyte Percent A 0.6 % (0-0.5); Lymphocytes Absolute Auto 1.38 K/mm3 (0.9-3.2); Lymphocytes Percent Auto 12.4 % (18.3-44.2); Mean Corpuscular HGB Conc 32.1 g/dl (32-36); Mean Corpuscular Hemoglobin 31.7 pg (26-34); Mean Corpuscular Volume 98.6 fl (80-100); Mean Platelet Volume 10.1 fl (7.4-10.4); Monocytes Percent Auto 8.6 % (2.6-8.5); Neutrophils Absolute Auto 8.3 K/mm3 (1.3-6.7); Neutrophils Percent Auto 74.4 % (45.5-73.1); Platelet Count Result 244 k/mm3 (150-375); Red Blood Count 4.42 M/mm3 (4.6-6.20); Red Cell Distribution Width 14.7 % (11.5-14.5); White Blood Count 11.2 K/mm3 (4.5-10.0)
[2024-04-09 12:17] LABS: Iron 106 ug/dL (49-181)
[2024-04-09 12:18] LABS: Anion Gap 3 mmol/L (4-12); Blood Urea Nitrogen 22 mg/dL (9-20); Carbon Dioxide 31 mmol/L (22-30); Chloride 107 mmol/L (98-107); Estimated Glomerular Filt Rate 46; Glucose 110 mg/dL (65-110); Potassium 4.1 mmol/L (3.4-5.0); Sodium 141 mmol/L (137-145)
[2024-04-09 12:37] LABS: Percent Iron Saturation 41 % (20-50)
== END 2024-04-09 10:35 | disposition home or self-care (01) ==
LOC: ANHLAB 10:38
PROVIDERS: PCP Family Medicine; Visit Provider Internal Medicine Hematology & Oncology
DX: D64.9 Anemia, unspecified (principal)
CPT/HCPCS: 36415; 80048; 82728; 83540; 83550; 85025

== ENCOUNTER 2025-03-10 11:31 | Outpatient (CLI) | payer MEDICARE, SELFPAY ==
--- NOTE | 2025-03-10 11:36 | ECG_ITS ---
Test Date: 2025-03-10 11:45:14 Measurements Intervals [place] Rate: 49 P: 4 NE: 150 QRS: -5 QRSD: 111 T: -18 QT: 426 QTc: 387 Interpretive Statements SINUS BRADYCARDIA WITH MARKED SINUS ARRHYTHMIA DELAYED PRECORDIAL R/S TRANSITION INFERIOR INFARCT, AGE INDETERMINATE BASELINE ARTIFACT- I, II, III, AVR, AVL, V1 ABNORMAL ECG No previous ECG available for comparison Electronically Signed On 03-10-2025 14:24:22 CDT by José Reyna D.O.
[2025-03-10 11:56] LABS: Hematocrit 45.7 % (42.0-52.0); Hemoglobin 15.0 g/dL (14.0-18.0)
[2025-03-10 12:16] LABS: Anion Gap 5 mmol/L (4-12); Blood Urea Nitrogen 19 mg/dL (9-20); Calcium 8.5 mg/dL (8.4-10.2); Carbon Dioxide 29 mmol/L (22-30); Chloride 105 mmol/L (98-107); Estimated Glomerular Filt Rate 58; Glucose 114 mg/dL (65-110); Potassium 3.9 mmol/L (3.4-5.0); Sodium 139 mmol/L (137-145)
== END 2025-03-10 11:32 | disposition home or self-care (01) ==
LOC: ANHSURGERY 11:35
PROVIDERS: Anesthesiology; PCP Family Medicine; Visit Provider Orthopaedic Surgery
DX: Z01.818 Encounter for other preprocedural examination (principal); I10 Essential (primary) hypertension; D50.9 Iron deficiency anemia, unspecified; R94.31 Abnormal electrocardiogram [ECG] [EKG]
CPT/HCPCS: 36415; 80048; 85014; 85018; 93005

== ENCOUNTER 2025-03-16 01:06 | Day surgery (SDC) | payer MEDICARE, SELFPAY ==
--- NOTE | 2025-03-05 14:59 | PC.NURSE ---
[facility] has started construction of its new state of the art ER which will open Spring 2026. With this, we anticipate parking may be a challenge for some our surgical patients and families. Parking spaces are limited but are available for all Surgical, obstetrics, and ER patients sharing this lot. If you arrive and find you are having a hard time finding a parking space, please note that we understand the challenges, please drive around the hospital and park near Hospital Entrance 1. When you enter this entrance, you can ask a volunteer to direct or take you back to the surgical waiting area to check in. We appreciate everyone?s understanding of these expected challenges while we build for your future. Report to the Outpatient Waiting Room, entrance under the green pavilion located off [address], at time __6am on date _03/16/25 . Planned Procedure Time: __7:30 am .? Time changes happen often and if your time is changed the preop area will call you the afternoon before. - You and your visitor will be asked to self-screen and do not enter if you have any COVID symptoms. Please call surgeon if you need to reschedule. - A mask is optional within the hospital at this time. Patients may have clear liquids (water, carbonated beverages, clear teas, apple juice) until 3 hours prior to surgery( 4:30 am) with a maximum of 20 ounces. - No food from midnight until time of surgery and no smoking, or chewing tobacco (or any form of nicotine). No chewing gum, candy or mints. Take only the following medications with a SIP of water on the morning of surgery: _METOPROLOL,_TRELEGY ELLIPTA INHALER DO NOT STOP ANY OF YOUR OTHER PRESCRIPTION MEDICATIONS PRIOR TO SURGERY EXCEPT THE FOLLOWING Hold all vitamins and supplements for 3 days per anesthesiologist.LAST DOSE 03/12/25 Medications to discontinue per physician ___MAY CONTINUE ASPIRIN PER DR SCOTT AND HOLD PLAVIX 7 DAYS PRE OP PER DR SCOTT Date to take last dose 03/08/25 Please no make-up, nail vietnamese, hairspray, perfume, deodorant, or body powder the day of surgery.? No jewelry (including any body piercings) or valuables the day of surgery, leave them at home.? Please take a shower or bath the night before, or the morning of, surgery with an antibacterial soap.? Wear comfortable, loose fitting clothing.? Children are encouraged to wear pajamas. - Jewelry must be removed prior to entering the operating room.? Rings and piercings that are not removed may be cut off. - The hospital will not accept responsibility for valuables.? - Please leave all valuables, including medications, at home the day of surgery. If you are going home after surgery, a licensed patient transportation driver must drive you home.? - NO public transportation without another adult if you receive anesthesia. - We recommend that an adult stay with you for 24 hours following discharge. - We also recommend that you do not drive, make important decision, drink alcoholic beverages, or take any drugs that were not prescribed by your health care provider for at least 24 hours after your discharge time. Follow any additional instructions given to you from your surgeon. Telephone instructions given to ____PATIENT and asked if any additional questions and then verbalized understanding. Patient advised to call surgeon office or pre surgery nurse liaison [phone] if any additional questions.
[2025-03-05 15:24] VITALS: BMI 27.0
--- NOTE | 2025-03-13 10:10 | PM.IMHP ---
H&P: HPI History of Present Illness Date/Time: 03/13/25 10:10 Chief Complaint: Left foot pain and deformity Narrative: 74-year-old male with fdc left foot pain and worsening deformity. Injury to left foot 15 years ago when fell from ladder dislocating 2nd toe. Difficulty with shoe wear and daily activity. Has failed conservative treatment. Review of Systems Constitutional: Constitutional: Denies fever(s) Eyes: Eyes: Denies blurry vision ENT: Reports Normal hearing present Cardiovascular: Cardiovascular: Denies chest pain and Denies dyspnea Respiratory: Respiratory: Denies dyspnea and Denies wheezing Gastrointestinal: Gastrointestinal: Denies abdominal pain Genitourinary: Genitourinary: Denies urinary urgency Musculoskeletal: Musculoskeletal: Reports as per HPI and Denies numbness Integumentary/Breasts: Skin/Breast: Denies changing lesions and Denies sores Neurologic: Reports Normal hearing present, Denies behavioral changes, Denies confusion, Denies numbness and Denies convulsions Psychiatric: Psychiatric: Denies behavioral changes, Denies confusion and Denies hallucinations Endocrine: Endocrine: Denies heat intolerance Hematologic/Lymphatic: Hematologic/Lymphatic: Denies easy bleeding Allergic/Immunologic: Allergic/Immunologic: Denies wheezing PMF Past Medical History Medical History Crossover toe deformity of left foot Acquired hallux valgus of left foot Benign prostatic hyperplasia Hypertension Cardiac arrest with ventricular fibrillation (10/2022) ST elevation myocardial infarction (STEMI) of inferior wall (10/2022) Status post stent to the LAD complicated by ventricular fibrillation arrest and acute stent thrombosis requiring 2nd emergent PCI. Coronary artery disease COPD with emphysema Hyperlipidemia Surgical History Surgical History History of coronary artery stent placement (10/2022) Stent to the LAD in October 2022. Stent to the in May 2023. Family History Family History Sibling Lethal familial cholestatic and pigmentary liver disease Brain tumor Colon cancer Cancer Hypertension Cerebrovascular accident Pulmonary disease Mother Lethal familial cholestatic and pigmentary liver disease Father Colon cancer Social History Social History Social History: Surrogate medical decision maker: Enma Marinelli, spouse. Code status: Full code. Smoking packs per day: 1 Smoking cigarettes per day: 20.0 Years smoked: 40 Smoking pack-years: 40.00 Smoking status: Former smoker Tobacco type: cigarettes Smoking end date: 10/30/22 Alcohol intake: never Substance use: never Substance use type: does not use Do You Feel Safe in your Home?: Yes Lack of Transportation: No Lack of Food: Never True Current Housing: I Have Housing Concerned About Future Housing: No Difficulty Paying Gas/Electric Bills: No Difficulty Paying for Meds: No Currently Unemployed: No Education: High School Diploma/GED Difficulty w/ Childcare or Family Care: No Living arrangements: with family Additional living arrangements comments: Lives with spouse in [place]. Additional occupation/education comments: Retired. Spiritual care concerns: No Meds Home Medications and Allergies Home Medications ?Medication ?Instructions ?Recorded ?Confirmed ?Type albuterol sulfate 90 mcg/actuation 1 puff inhalation 4-6XD PRN 10/07/22 03/05/25 History aerosol inhaler Shortness Of Breath aspirin 81 mg chewable tablet 81 mg PO DAILY@0800 #30 tabs 12/05/22 03/05/25 Rx (Children's Aspirin) multivitamin-iron 9 mg-folic acid 1 tablet PO QAM #30 tabs 12/05/22 03/05/25 Rx 400 mcg-calcium and minerals tablet (Thera M Plus (ferrous fumarate)) tamsulosin 0.4 mg capsule 0.4 mg PO QPM@1800 #30 caps 12/05/22 03/05/25 Rx furosemide 20 mg tablet 20 mg PO DAILY 08/21/23 03/05/25 History metoprolol tartrate 25 mg tablet 12.5 mg PO BID 08/21/23 03/05/25 History pantoprazole 40 mg tablet,delayed 40 mg PO DAILY 08/21/23 03/05/25 History release potassium chloride 10 mEq 10 meq PO DAILY 08/21/23 03/05/25 History tablet,extended release trazodone 100 mg tablet 100 mg PO DAILY PRN Sleep 08/21/23 03/05/25 History fluticasone fur. 100 mcg-umeclid 100-62.5-25 mcg Blister With 10/03/23 03/05/25 Sample 62.5 mcg-vilant 25 mcg Device#2 Samples inhalat.powder (Trelegy Ellipta) atorvastatin 80 mg tablet 80 mg PO DAILY 10/21/23 03/05/25 History ferrous sulfate 325 mg (65 mg 325 mg PO DAILY 07/17/24 03/05/25 History iron) tablet clopidogrel 75 mg tablet 75 mg PO DAILY 01/12/25 03/05/25 History cetirizine 10 mg tablet (24Hour 5 mg PO DAILY PRN allergy symptoms 03/05/25 03/05/25 History Allergy) Allergies Allergy/AdvReac Type Severity Reaction Status Date / Time No Known Allergies Allergy Verified 03/05/25 14:58 Exam Const: General: healthy appearing; No in distress or confusion Orientation/consciousness: oriented to person, oriented to place, oriented to time and No confusion HENMT: Head: normal to inspection, normocephalic and atraumatic Eyes: Conjunctivae: conjunctivae normal Sclera: sclerae normal Neck: Neck: supple and nontender Resp: Effort & Inspection: normal respiratory effort and no audible wheezes Cardio: Rhythm: regular rhythm Skin: General skin exam: no rashes or lesions noted Neuro: General: oriented to person, oriented to place, oriented to time and No confusion Extrem: Right upper extremity: normal to inspection Left upper extremity: normal to inspection Right lower extremity: ankle Details: normal to inspection, normal ROM ( dorsiflexion 5?, plantar flexion 45?, inversion 20?, eversion 10?) and other ( good stability all directions); no tenderness, no swelling and no ecchymosis and foot Details: normal to inspection, toes with normal ROM, vascular exam Details: dorsalis pedis pulse present and normal capillary refill, tendon exam Details: active flexion normal and active extension normal and motor-sensory exam Details: light-touch normal Location: in all toes Left lower extremity: ankle Details: normal ROM ( dorsiflexion 5?, plantar flexion 45?, inversion 20?, eversion 10?.); no tenderness and no swelling and foot Details: normal capillary refill, abnormal to inspection Details: a deformity Location: of the hallux valgus (moderate), tenderness Location: of the great toe Location: at the MTP joint (medial emminence), abnormal ROM of toe (hallux mtp df 40, pf 20), vascular exam (2+DP pulse, good cap refill all toes), tendon exam (FHL/EHL 5/5) and motor-sensory exam two point discrimination normal; no crepitus Psych: Affect: normal affect Assessment and Plan Assessment and plan (1) Acquired hallux valgus of left foot: Code(s): M20.12 - Hallux valgus (acquired), left foot Status: Acute Assessment and Plan: Worsening deformity and pain left foot. Difficulty with shoe wear. Has become hard to perform daily activity. Failed conservative treatment with toe strapping, padding and bracing. Accommodative shoes and activity modifications with no improvement. Presents for operative treatment. (2) Crossover toe deformity of left foot: Code(s): M20.5X2 - Other deformities of toe(s) (acquired), left foot Status: Acute Assessment and Plan: History of dislocation of the left 2nd toe. Now with deformity MTP and PIP joints. Difficulty with shoe wear. Discussed addressing at the time of the hallux valgus with PIP arthrodesis possible toe reconstruction at the MTP joint with possible metatarsal head osteotomy or resection. Plan Discussed nonoperative and operative treatment options with the patient. Risks and benefits of each as well as alternatives were reviewed. All of the patient's questions were answered. The risks of surgery reviewed including but not limited to: Neurovascular damage, wound complication, infection, blood clot, pulmonary embolus, stroke, myocardial infarction, and anesthetic risks up to and including . Continued pain and possible dysfunction were explained. Specific risks of the procedure including later recurrence of deformity. No guarantees were offered. If hardware used, discussed risk of failure/ breakage and possible need for removal. If complications occur, the patient understands the need for further treatment, possible further surgery. Patient verbalizes understanding and wishes to proceed. PLAN: Left hallux valgus correction with double osteotomy, 2nd toe correction.
[2025-03-16] VITALS (8 sets, daily range): BP systolic 118–164; BP diastolic 61–81; PULSE 53–68; RESP 15–20; TEMP 36.4–36.7; O2SAT 97–100; BMI 27.0
--- NOTE | ~2025-03-16 | XR_ITS ---
EXAMINATION: XR surgery orthopedic DATE: 03/16/2025 08:54 INDICATION: Left hallux correction with first metatarsal and phalangeal osteotomies TECHNIQUE: 4 fluoroscopic images of the left forefoot were obtained during procedure performed by Dr. Espinoza. Radiologist was not present for the imaging or procedure. The amount of fluoroscopy time used during this procedure was 0.1 minutes. Total DAP was 0.745 cGycm^2. COMPARISON: None. FINDINGS: Realignment osteotomy extending across the proximal metaphyseal region of the first proximal phalanx which is fixed with a medial sided staple. Bunionectomy and realignment chevron osteotomy at the neck of the first metatarsal which is without evident fixation. This results in correction of the prior moderate hallux valgus with now near anatomic alignment of the axis of the first ray. Finally there is a second proximal interphalangeal joint arthrodesis with placement of a fixation device spanning the joint space which is been placed over an axially directed pin which extends from the base of the second distal phalanx across the middle phalanx and proximal phalanges with distal tip at level of the second metacarpophalangeal joint space. Partial visualization of an intramedullary metallic implant/fixation device at the visualized proximal aspect of the fourth metatarsal. No fractures identified. Moderate osteoarthritis at the first metatarsophalangeal joint and mild osteoarthritis at many of the interphalangeal and remaining metatarsophalangeal joints. IMPRESSION: 1. Fluoroscopy utilized during realignment osteotomy site first metatarsal and proximal phalanx for hallux valgus correction and second proximal interphalangeal joint arthrodesis. See procedure note for further detail. Reviewed, dictated and finalized at location A. IMPRESSION: 1. Fluoroscopy utilized during realignment osteotomy site first metatarsal and proximal phalanx for hallux valgus correction and second proximal interphalange al joint arthrodesis. See procedure note for further detail.
[2025-03-16] MEDS: LACTATED RINGERS 1,000 ML 30 ML IV CONT (06:30)
[2025-03-16] MEDS: KETOROLAC 15 MG/ML VIAL (*BKC) IV PUSH (06:30)
[2025-03-16] MEDS: ACETAMINOPHEN 500 MG TABLET 1000 MG PO (06:30)
--- NOTE | 2025-03-16 07:11 | WPDANESEPPF ---
Anes - Initial Pre Proc Eval Procedure: Operation Date: 03/16/25 07:30 Proposed Procedures p Left Hallux Valgus Correction with First Metatarsal Osteotomy, Phalangeal Osteotomy, Left Second Toe Correction - Tim Espinoza MD Date/Time: 03/16/25 07:11 Surgeon: Tim Espinoza MD Pre Op Diagnosis: left hallux valgus,2nd hammer toe Patient Data Age: 74 Gender: M Height: 1.75 m Weight: 83.05 kg Allergies Allergy/AdvReac Type Severity Reaction Status Date / Time No Known Allergies Allergy Verified 03/05/25 14:58 Home Medications ?Medication ?Instructions ?Recorded ?Confirmed ?Type albuterol sulfate 90 mcg/actuation 1 puff inhalation 4-6XD PRN 10/07/22 03/05/25 History aerosol inhaler Shortness Of Breath aspirin 81 mg chewable tablet 81 mg PO DAILY@0800 #30 tabs 12/05/22 03/05/25 Rx (Children's Aspirin) multivitamin-iron 9 mg-folic acid 1 tablet PO QAM #30 tabs 12/05/22 03/05/25 Rx 400 mcg-calcium and minerals tablet (Thera M Plus (ferrous fumarate)) tamsulosin 0.4 mg capsule 0.4 mg PO QPM@1800 #30 caps 12/05/22 03/05/25 Rx furosemide 20 mg tablet 20 mg PO DAILY 08/21/23 03/05/25 History metoprolol tartrate 25 mg tablet 12.5 mg PO BID 08/21/23 03/05/25 History pantoprazole 40 mg tablet,delayed 40 mg PO DAILY 08/21/23 03/05/25 History release potassium chloride 10 mEq 10 meq PO DAILY 08/21/23 03/05/25 History tablet,extended release trazodone 100 mg tablet 100 mg PO DAILY PRN Sleep 08/21/23 03/05/25 History fluticasone fur. 100 mcg-umeclid 100-62.5-25 mcg Blister With 10/03/23 03/05/25 Sample 62.5 mcg-vilant 25 mcg Device#2 Samples inhalat.powder (Trelegy Ellipta) atorvastatin 80 mg tablet 80 mg PO DAILY 10/21/23 03/05/25 History ferrous sulfate 325 mg (65 mg 325 mg PO DAILY 07/17/24 03/05/25 History iron) tablet clopidogrel 75 mg tablet 75 mg PO DAILY 01/12/25 03/05/25 History cetirizine 10 mg tablet (24Hour 5 mg PO DAILY PRN allergy symptoms 03/05/25 03/05/25 History Allergy) Patient hx anesthesia problems: none Family hx anesthesia problems: none Results Review: All pre-operative results and documents have been reviewed as part of the pre-operative evaluation. [facility] Past Medical History Medical History Crossover toe deformity of left foot Acquired hallux valgus of left foot Benign prostatic hyperplasia Hypertension Cardiac arrest with ventricular fibrillation (10/2022) ST elevation myocardial infarction (STEMI) of inferior wall (10/2022) Status post stent to the LAD complicated by ventricular fibrillation arrest and acute stent thrombosis requiring 2nd emergent PCI. Coronary artery disease COPD with emphysema Hyperlipidemia Surgical History Surgical History History of coronary artery stent placement (10/2022) Stent to the LAD in October 2022. Stent to the in May 2023. Family History Family History Sibling Lethal familial cholestatic and pigmentary liver disease Brain tumor Colon cancer Cancer Hypertension Cerebrovascular accident Pulmonary disease Mother Lethal familial cholestatic and pigmentary liver disease Father Colon cancer Social History Social History Social History: Surrogate medical decision maker: Enma Marinelli, spouse. Code status: Full code. Smoking packs per day: 1 Smoking cigarettes per day: 20.0 Years smoked: 40 Smoking pack-years: 40.00 Smoking status: Former smoker Tobacco type: cigarettes Smoking end date: 10/30/22 Alcohol intake: never Substance use: never Substance use type: does not use Do You Feel Safe in your Home?: Yes Lack of Transportation: No Lack of Food: Never True Current Housing: I Have Housing Concerned About Future Housing: No Difficulty Paying Gas/Electric Bills: No Difficulty Paying for Meds: No Currently Unemployed: No Education: High School Diploma/GED Difficulty w/ Childcare or Family Care: No Living arrangements: with family Additional living arrangements comments: Lives with spouse in [place]. Additional occupation/education comments: Retired. Spiritual care concerns: No Anes - Eval Final PreProcedure Day of Procedure 03/16/25 07:11 Patient weight: overweight Lungs: normal air movement Airway: Mallampati scale class II Neurological: alert and oriented Last oral intake: >/= 8 hours ASA classification: III Emergent: no Anesthetic plan: proceed Anesthesia type and monitoring: general LMA and standard monitoring Results Review: All pre-operative results and documents have been reviewed as part of the pre-operative evaluation. HTN, hyperlipidemia, hx of PTCA 2022, ex smoker, Cleared by cardiology. Informed Consent: The patient's anesthetic plan and its attendant risks and benefits were discussed with the patient/family/POA. Questions were solicited and answers provided to the satisfaction of the patient/family/POA.
--- NOTE | 2025-03-16 07:17 | WPDHPUPDATE1 ---
History and Physical Update Update Date/Time: 03/16/25 07:17 History and Physical has been reviewed, including an updated exam of the patient. There are NO changes in the patient's condition. Risks, benefits, and alternatives have been discussed and questions answered. Patient agrees to proceed with procedure.
[2025-03-16] MEDS: ceFAZolin 2 GM in SODIUM CHLORIDE 0.9% IV 50 ML 100 ML IVPB (07:34)
--- NOTE | 2025-03-16 09:06 | P.OP_ITS ---
Procedure Note - Detailed Date of Procedure 03/16/25 Pre-op Diagnosis left hallux valgus,2nd hammer toe Post-op Diagnosis Same Procedure Performed Left hallux valgus correction with double osteotomy, 2nd toe PIP arthrodesis Surgeon Tim Espinoza MD Holter Scanning Technician 1St assistant branch manager Anesthesia General Indications 74-year-old gentleman with left foot severe hallux valgus deformity and 2nd hammertoe. Difficulty with shoe wear. Pain with activity. Unrelieved with conservative measures. Presents for operative treatment. Description of Procedure Patient identified in the preoperative holding. Informed consent given. Operative extremity marked. Patient received intravenous antibiotics. Patient brought to the operating room where underwent general anesthetic by anesthesia team. Positioned supine on operating room table. Time-out performed confirming the patient, site of the surgery and the plan. Left foot prepped and draped in the usual sterile surgical fashion using a ChloraPrep skin solution. Foot was exsanguinated with an Esmarch bandage which was secured at the ankle as a tourniquet. A longitudinal incision was then made along the medial border of the 1st ray centered over the medial eminence with a #15 blade knife. Hemostasis was controlled with electric cautery. The dorsal and plantar sensory nerves were identified and retracted bluntly. A medial capsulotomy was then performed. This was reflected off the medial eminence. The joint was inspected for evaluation of degenerative changes. A lateral release was then performed through the joint with a #15 blade knife. The medial eminence was then resected with a sagittal saw in line with the medial border of the foot. Correction of the deformity was performed with a chevron-shaped osteotomy performed with sagittal saw from medial to lateral through the distal portion of the 1st metatarsal. The lateral portion of the bone cut was completed with an osteotome to protect the soft tissue. The capital fragment was then translated laterally and impacted on to the 1st metatarsal shaft. Lateral translation and impaction corrected both hallux valgus deformity and correction of the distal metatarsal articular angle. Temporary fixation was performed and alignment was verified with image intensification. Hallux valgus angle correction, intermetatarsal angle correction and distal metatarsal articular angle were verified. Fixation was achieved with 2.0 millimeter bioabsorbable pins. Two pins were utilized. Image intensification confirmed final alignment. Rotation was verified visually. The wound was then thoroughly irrigated with antibiotic solution. The capsule was repaired through a drill hole in the distal 1st metatarsal with 0 Vicryl interrupted suture. Remaining Capsulotomy repaired with 2 O Vicryl interrupted suture. Subcutaneous tissue repaired with 3 0 Monocryl interrupted suture and skin repaired with 4 O nylon running suture. Hallux valgus interphalangeus deformity still remained. Incision medially was extended over the proximal phalanx of the hallux with 15 blade knife. Hemostasis control after cautery. Dissection of the medial proximal phalanx performed. Retractors placed. Sagittal saw was then used to make a closing wedge osteotomy of the proximal phalanx just confirmed with image intensification. Was obtained and rotation was also verified. Fixation achieved with a 9 mm staple. This was verified with fluoroscopy. Wound irrigated and subcutaneous tissue. A 3-0 Monocryl interrupted suture. Skin repaired with 4-0 nylon interrupted suture. 2nd toe then addressed. Dorsal longitudinal incision made over the 2nd toe proximal interphalangeal joint with 15 blade knife. Hemostasis controlled electrocautery. Dorsal capsulotomy performed including the extensor tendon. Medial and lateral collateral ligaments released off of the proximal phalanx. Distal and of the proximal phalanx and the proximal end of the middle phalanx resected with bone cutter and rongeur. Any prominent bone or spurring removed with rongeur. Joint thoroughly irrigated with antibiotic solution. Joint then prepared, reduced and fixed with internal joint arthrodesis fixation device. Alignment checked with image intensification. Wound thoroughly irrigated. Capsule closed with 3 O Monocryl interrupted suture. Skin repaired with 4 O nylon interrupted suture. Sterile dressing applied. Tourniquet released and good capillary refill in all toes ensured. The patient was then awoken from anesthesia, extubated and taken to the recovery room in stable condition. All sponge, needle, instrument counts were correct at the end of the case. Implants Arthrex 2.0 mm treatment 10 x 2, 9 mm staple x1, size 14 hammertoe implant. Estimated Blood Loss 5 Tourniquet Time Total Tourniquet Time: 59 Drains No Packing No Pathology None sent Complications None Condition Stable Disposition PACU [facility] Billing Surgery - Charge Forward: Surgery Billing ([id number], [id number])
== END 2025-03-16 10:37 | disposition home or self-care (01) ==
PROVIDERS: PCP Family Medicine; Visit Provider Orthopaedic Surgery
PROC: (CPT 28299; principal; 2025-03-16 07:30)
DX: M20.12 Hallux valgus (acquired), left foot (principal); M20.5X2 Other deformities of toe(s) (acquired), left foot; E78.5 Hyperlipidemia, unspecified; I10 Essential (primary) hypertension; N40.0 Benign prostatic hyperplasia without lower urinary tract symptoms; I25.2 Old myocardial infarction; I25.10 Atherosclerotic heart disease of native coronary artery without angina pectoris; Z79.51 Long term (current) use of inhaled steroids; Z79.82 Long term (current) use of aspirin; Z79.02 Long term (current) use of antithrombotics/antiplatelets; Z95.5 Presence of coronary angioplasty implant and graft; Z87.891 Personal history of nicotine dependence; Z80.0 Family history of malignant neoplasm of digestive organs
CPT/HCPCS: 28299; 28285; 99199; J0690; A9270; C1713; J1100; J1885; J2003; J2250; J2371; J2405; J2704; J3010; J7120

== ENCOUNTER 2025-03-24 09:34 | Emergency (ER) | payer MEDICARE, SELFPAY ==
[2025-03-24] VITALS (7 sets, daily range): BP systolic 104–133; BP diastolic 61–72; PULSE 60–85; RESP 16–21; TEMP 36.9; O2SAT 96–98
--- NOTE | ~2025-03-24 | XR_ITS ---
Clinical history:URI EXAM:X-ray chest one view portable TECHNIQUE:A single portable AP upright frontal image of the chest was obtained. Comparisons:10/30/2022 FINDINGS: Cardiomediastinal silhouette is mildly enlarged. No pneumothorax. No pleural effusion. No free air under the diaphragm. Small opacities in the mid and lower lungs. IMPRESSION: 1. Small opacities in the mid and lower lungs which represents atelectasis/scarring or infiltrates. If symptoms persist or worsen, consider a short-term follow-up study or additional imaging for further assessment. Reviewed, dictated and finalized at location Q. IMPRESSION: 1. Small opacities in the mid and lower lungs which represents atelectasis/scar ring or infiltrates. If symptoms persist or worsen, consider a short-term follow-up study or additio nal imaging for further assessment.
[2025-03-24 10:31] LABS: Influenza A QL RT-PCR Negative (Negative); Influenza B QL RT-PCR Negative (Negative); RSV RNA, RT-PCR Negative (Negative); SARS-CoV-2 RNA PCR Negative (Negative)
--- OUTSIDE RECORDS SUMMARY | 2025-03-24 10:31 | XMS_ITS | Clinical Summary ---
Author Organization [facility] Hi alegre Jayme Address [address] [place] [address] Care Team Providers Care Program Analyst Name Role Phone Chandu Schroeder MD Primary Care Provider Allergies No known active allergies Medications atorvastatin (LIPITOR) 80 mg tablet Take 80 mg by mouth daily. 05/09/2023 Active aspirin (ECOTRIN EC) 81 mg Tablet, Delayed Release (E.C.) Take 81 mg by mouth daily. Active ferrous sulfate 325 mg (65 mg iron) Tablet, Delayed Release (E.C.) Take 1 Tablet by mouth daily. 10/25/2023 Active ipratropium bromide (ATROVENT) 42 mcg (0.06 %) Martin, Non-Aerosol USE 2 SPRAYS IN EACH NOSTRIL FOUR TIMES DAILY 10/08/2023 Active Trelegy Ellipta 100-62.5-25 mcg Disk with Device INHALE 1 PUFF BY MOUTH AT THE SAME TIME EVERY DAY Active pantoprazole (PROTONIX) 40 mg Tablet, Delayed Release (E.C.) Take 40 mg by mouth daily. 08/29/2023 Active tamsulosin (FLOMAX) 0.4 mg capsule Take 0.4 mg by mouth. Active traZODone (DESYREL) 100 mg tablet Take 100 mg by mouth daily at bedtime. Active multivitamin (DAILY-DONYA) tablet Take 1 Tablet by mouth daily. Active dextromethorpha n-guaiFENesin (MUCINEX DM) 30-600 mg Tablet Sustained Release 12HR Take 1 Tablet by mouth every 12 hours. Active clopidogreL (PLAVIX) 75 mg Tablet Take 75 mg by mouth daily. Active Active Problems No known active problems Encounters Date Type Department Care Team Description 02/10/2025 External Device Data [facility] ABSTRACTION Provider, Abstract 01/13/2025 External Device Data [facility] ABSTRACTION Provider, Abstract 12/30/2024 External Device Data [facility] ABSTRACTION Provider, Abstract from Last 3 Months Family History Medical History Relation Name Comments Cancer Brother 1 Cancer Brother 2 Colon Cancer Brother 3 Lung Cancer Brother 4 Brain Cancer Brother 5 Cancer Father Cancer Mother Cancer Sister 1 Relation Name Status Comments Brother 1 Brother 2 Brother 3 Brother 4 Brother 5 Father Mother Sister 1 Alive Sister 2 Alive Son Alive Social History Tobacco Use Types Packs/Day Years Used Date Smoking Tobacco: Former Cigarettes 1 55 1 2022 Smokeless Tobacco: Never Tobacco Cessation:Counseling Given: Not Answered Alcohol Use Standard Drinks/Week Comments Yes 0 (1 standard drink = 0.6 oz pur e alcohol) rarely Sex and Gender Information Value Date Recorded Sex Assigned at Not on file Legal Sex Male 12:33 PM CDT Gender Identity Not on file Sexual Orientation Not on file Last Filed Vital Signs Vital Sign Reading Time Taken Comments Blood Pressure 114/69 10/09/2024 9:59 AM CDT Pulse 54 10/09/2024 9:59 AM CDT Temperature 36.2 C (97.1 F) 10/09/2024 9:59 AM CDT Respiratory Rate 15 10/09/2024 9:59 AM CDT Oxygen Saturation 93% 10/09/2024 9:59 AM CDT Inhaled Oxygen Concentration - - Weight 82.7 kg (182 lb 6.4 oz) 10/09/2024 9:59 A M CDT Height - - Body Mass Index - - Plan of Treatment Upcoming Encounters Date Type Department Care Team (Late st Contact Info) Description 04/13/2025 11:45 AM [employer] Office Visit [facility] Oncology and Hematology - [facility] [address] [facility] [address] [place] [address] Juanpablo Lima MD [address] [facility] [address] [place] [address] Health Maintenance Due Date Last Done Comments DTAP/TDAP/TD VACCINES (1 - Tdap) 12/14/1967 PNEUMOCOCCAL VACCINE 50+ YEARS (1 of 2 - PCV) 12/13/18 68 ZOSTER VACCINE (1 of 2) 1998 RSV VACCINE (60+ or ) (1 - 1-dose 75+ series) 12/14/2023 INFLUENZA VACCINE (#1) 2024 Insurance MEDICARE PART A AND B [facility] [id number] Care Teams Program Analyst Relationship Specialty Start Date End Date Chandu Schroeder MD [address] [place] [address] PCP - General Family Practice 10/31/23
--- OUTSIDE RECORDS SUMMARY | 2025-03-24 10:31 | XMS_ITS | Clinical Summary ---
Author Organization [facility] Address [address] [place] [address] Care Team Providers Care Ethanol Operations Manager Name Role Phone Chandu Schroeder MD Primary Care Provider [phone] Chandu Schroeder MD Unavailable [phone] Allergies No known active allergies Medications fluticasone-umec lidin-vilanter (Trelegy Ellipta) 100-62.5-25 mcg inhaler Inhale 1 puff daily Active multivit bfkfavdc-djsn-SA -calcium (THERA-M) 9 mg iron-400 mcg tablet Administer 1 tablet per feeding tube daily 30 tablet 1 3 Active traZODone (DESYREL) 100 mg tablet Take 1 tablet (100 mg total) by mouth nightly as needed for sleep 30 tablet 3 Active albuterol HFA (PROVENTIL HFA,VENTOLIN HFA,PROAIR HFA) 90 mcg/actuation inhaler Inhale 2 puffs every 6 (six) hours as needed for wheezing Active aspirin 81 mg enteric coated tablet Take 1 tablet (81 mg total) by mouth daily Active atorvastatin (LIPITOR) 80 mg tablet Take 1 tablet (80 mg total) by mouth daily 30 tablet 11 3 Active FeroSuL 325 mg (65 mg iron) tablet Take 1 tablet (325 mg total) by mouth daily with breakfast 4 Active cetirizine (ZyrTEC) 10 mg tablet Take 1 tablet (10 mg total) by mouth daily 4 Active fluticasone propionate (FLONASE) 50 mcg/actuation nasal spray Administer 1 spray into each nostril daily Active guaiFENesin-dext romethorphan ER (MUCINEX DM) 600-30 mg tablet extended release 12 hr Take 1 tablet by mouth 2 times daily Active ipratropium (ATROVENT) 42 mcg (0.06 %) nasal spray Administer 1 spray into each nostril 4 (four) times a day 4 Active multivitamin tablet Take 1 tablet by mouth daily Active clopidogreL (PLAVIX) 75 mg tablet Take 1 tablet (75 mg total) by mouth daily 90 tablet 6 5 07/23/19 26 Active furosemide (LASIX) 20 mg tablet TAKE 1 TABLET(20 MG) BY MOUTH DAILY 30 tablet [address] (PROTONIX) 40 mg EC tablet TAKE 1 TABLET(40 MG) BY MOUTH DAILY 30 tablet 5 5 Active metoprolol tartrate (LOPRESSOR) 25 mg immediate release tablet TAKE 1/2 TABLET(12.5 MG) BY MOUTH TWICE DAILY 90 tablet 1 5 Active potassium chloride ER 10 mEq CR tablet TAKE 1 TABLET(10 MEQ) BY MOUTH DAILY 30 tablet 5 5 Active tamsulosin (FLOMAX) 0.4 mg extended release capsuleIndicatio ns:Benign prostatic hyperplasia without lower urinary tract symptoms Take 1 capsule (0.4 mg total) by mouth daily 90 capsule 3 5 Active Active Problems Problem Noted Date Diagnosed Date Coronary artery disease invo lving [place] coronary artery of [place] heart without angina pectoris 05/09/[address] elevation myocardial infarction Cardiogenic shock 10/31/2022 Encounters Date Type Department Care Team Description 02/18/2025 8:46 AM CDT - 02/18/2025 11:59 PM CDT Hospital Encounter [facility] Cardiac Testing [address] [place] [address] Peripheral vascular disease, unspecified; Pain in left foot Discharge Disposition: Discharge to home or self care 01/19/2025 1:00 PM CDT Office Visit [facility]) - [facility] Medicine Urology [address] [facility] [address] [place] [address] Debra Medel NP Benign prostatic hyperplasia without lower urinary tract symptoms (Primary Dx) from Last 3 Months Surgical History Surgery Date Site/Laterality Comments CORONARY ANGIOPLASTY WITH STENT PLACEMENT Medical History Medical History Date Comments COPD (chronic obstructive pulmonary disease) Hypertension History of ST elevation myocardial infarction CAD (coronary artery disease) HL (hearing loss) Family History Medical History Relation Name Comments No Known Problems Father No Known Problems Mother Relation Name Status Comments Father Mother Social History Tobacco Use Types Packs/Day Years Used Date Smoking Tobacco: Former Cigarettes Q uit: 10/30/2022 Smokeless Tobacco: Never Tobacco Cessation:Counseling Given: Not Answered Social Connection and Isolation Panel Answer Date Recorded In a typical week, how many times do you talk on the phone with family, friends, or neighbors? More than three times a week 11/01/2022 How often do you get togethe r with friends or relatives? More than three times a week 11/01/2022 Attends [employer] Services Not on file 11/01 Active Member of Clubs or Organizations Not on f ile 11/01/2022 Attends Club or Organization Meetings Not on sherrill e 11/01/2022 Are you , , di vorced, , never , or living with a partner? 11/01/2022 AUDIT-C Answer Date Recorded Q1: How often do you have a drink containing alc ohol? Monthly or less 06/21/2023 Q2: How many drinks containi ng alcohol do you have on a typical day when you are drinking? 1 or 2 06/21/2023 Q3: How often do you have si x or more drinks on one occasion? Never 06/21/2023 Overall Financial Resource Strain (CARDIA) Answe r Date Recorded How hard is it for you to pa y for the very basics like food, housing, medical care, and heating? Not hard at all 11/01/2022 Hunger Vital Sign Answer Date Recorded Within the past 12 months, y ou worried that your food would run out before you got the money to buy more. Never true 11/02/19 23 Within the past 12 months, t he food you bought just didn't last and you didn't have money to get more. Never true 11/01/2022 PRAPARE - Transportation Answer Date Re corded In the past 12 months, has l ack of transportation kept you from medical appointments or from getting medications? No 11/2022 In the past 12 months, has l ack of transportation kept you from meetings, work, or from getting things needed for daily living? No 11/01/2022 Housing Stability Vital Sign Answer Sebastián e Recorded In the last 12 months, was t here a time when you were not able to pay the mortgage or rent on time? No 11/01/2022 Number of Places Lived in the Last Year Not on f ile 11/01/2022 In the last 12 months, was t here a time when you did not have a steady place to sleep or slept in a group home (including now)? No 11/01/2022 Personal Safety Answer Date Recorded Have you ever been in or are you currently in a harmful physical or emotional relationship or is someone making you feel afraid or unsafe? Denies 06/21/2023 Sex and Gender Information Value Date Recorded Sex Assigned at Not on file Legal Sex Male 11:18 AM CDT Gender Identity Not on file Sexual Orientation Not on file Obstetrics History Last Filed Vital Signs Vital Sign Reading Time Taken Comments Blood Pressure 118/60 07/23/2024 11:44 AM EXCAVATING SUPERVISOR Pulse 60 07/23/2024 11:44 AM EXCAVATING SUPERVISOR Temperature 36.7 C (98 F) 01/24/2024 1:07 PM CDT Respiratory Rate 18 06/21/2023 1:25 PM EXCAVATING SUPERVISOR Oxygen Saturation 98% 07/23/2024 11:44 AM EXCAVATING SUPERVISOR Inhaled Oxygen Concentration - - Weight 84.8 kg (187 lb) 07/23/2024 11:44 AM EXCAVATING SUPERVISOR Height 175.3 cm (5' 9) 07/23/2024 11:44 AM EXCAVATING SUPERVISOR Body Mass Index 27.62 07/23/2024 11:44 AM EXCAVATING SUPERVISOR Plan of Treatment Health Maintenance Due Date Last Done Comments Depression Screening 1950 Hepatitis B Screening 1966 Pneumococcal vaccine 65+ (1 of 2 - PCV) 12/14/1967 Well Visit 65+ 2013 Fall Risk Assessment 06/21/2024 06/21/2023 Zoster Vaccine (2 of 2) 09/19/2024 07/25/2024 Influenza Vaccine (#1) 2025 DTaP/Tdap/Td Vaccine (2 - Td or Tdap) 05/18/2028 Abdominal Aortic Aneurysm (AAA) Screen Completed Hepatitis C Screening Completed 11/01/2022 Medical Devices Implanted Type Area Chief Analytics Officer Device Identifier Shelf Expiration Date Model / Serial / Lot Medtronic Card Vasc Surgery 2.75 X 12mm [place] [facility] Rx Coronary Stent [id number] - [id number] Implanted:Qty: 1 on 06/21/2023 by David Mcclure MD at [facility] [employer] Card Vasc Surgery 03/18/2026 [id number] / / [id number] [employer] Device Vascular Closure Femoral Artery Bioabsorbable Dual Method Vascade 6-7fr Collagen [id number] - [id number] Implanted:Qty: 1 on 06/21/2023 by David Mcclure MD at [facility] [employer] 02/14/2025 [id number] / / [id number] Procedures Procedure Name Priority Date/Time Associated Diagnosis Comments US ALBIN Schedule Routine, Read Routine (OP Routine) 02/18/2025 9:53 AM CDT Peripheral vascular disease, unspecified Pain in left foot MEASURE POST VOID RESIDUAL Routine 01/19/2025 1:08 PM CDT Benign prostatic hyperplasia without lower urinary tract symptoms HEPATITIS PANEL, ACUTE Routine 11/01/2022 4:[address] CHEST ABDOMEN PELVIS W CONTRAST ED Urgent/IP Urgent 11/01/2022 1:22 AM CDT from Last 3 Months or Most Recently Relevant to Health Maintenance Results * US ALBIN (02/18/2025 9:53 AM CDT) Anatomical Region Laterality Modality Vascular N/A Ultrasound 02/18/2025 9:06 AM CDT Narrative 02/18/2025 1:19 PM CDT Lower Extremity Arterial Doppler Report Patient Name: HERI RING J : 1950 Study Date: 02/18/2025 9:06:00 AM Sex: M Sciences Dean: Kedar Baig [facility] RVT Ref Provider: BARRON SCOTT Quality: Adequate Order Provider: BARRON SCOTT PROCEDURES: Arterial Report: Ankle - Brachial Index Doppler exam. INDICATIONS: I73.9 Peripheral vascular disease, unspecified and M79.672 Pain in left foot. MEASUREMENTS: Right Value Left Value Rt Brachial Pressure 142 mmHg Lt Brachial Pressure 146 mmHg Rt ASSEMBLER 1ST SHIFT Pressure 156 mmHg Lt ASSEMBLER 1ST SHIFT Pressure 124 mmHg Rt DPA Pressure 131 mmHg Lt DPA Pressure 115 mmHg Rt 1st Digit Pressure 136 mmHg Lt 1st Digit Pressure 77 mmHg Rt PT ALBIN Resting 1.07 Lt PT ALBIN Resting 0.85 Rt DP ALBIN Resting 0.9 Lt DP ALBIN Resting 0.79 Rt Digit 1/Arm Index 0.93 Lt Digit 1/Arm Index 0.53 FINDINGS: Right Posterior Tibial Artery Analysis: The posterior tibial waveform is triphasic. Right Dorsalis Pedis Artery Analysis: The dorsalis pedis waveform is triphasic. Right Digits: Normal right digit pressure and waveform. Left Posterior Tibial Artery Analysis: The posterior tibial waveform is triphasic. Left Dorsalis Pedis Artery Analysis: The dorsalis pedis waveform is triphasic. Left Digits: Normal left digit pressure and waveform. - CONCLUSIONS: 1. Ankle-brachial index of 0.9-1.3 is within normal limits in the right lower extremity. 2. Ankle-brachial index of 0.8-0.9 is consistent with mild occlusive arterial disease in the left lower extremity. ATTESTATION: I have reviewed and interpreted the pertinent images and measurements of this study. I attest to the conclusions in the final report that is provided above. Electronically Signed By: Antoni Vaughn MD 02/18/2025 12:14:43 PM CDT Procedure Note Antoni Vaughn MD - 02/18/2025 Lower Extremity Arterial Doppler Report Patient Name: HERI RING J : 1950 Study Date: 02/18/2025 9:06:00 AM Sex: M Sciences Dean: Kedar Baig [facility] RVT Ref Provider: BARRON SCOTT Quality: Adequate Order Provider: BARRON SCOTT PROCEDURES: Arterial Report: Ankle - Brachial Index Doppler exam. INDICATIONS: I73.9 Peripheral vascular disease, unspecified and M79.672 Pain in leftfoot. MEASUREMENTS: Right Value Left Value Rt Brachial Pressure 142 mmHg Lt Brachial Pressure 146 mmHg Rt ASSEMBLER 1ST SHIFT Pressure 156 mmHg Lt ASSEMBLER 1ST SHIFT Pressure 124 mmHg Rt DPA Pressure 131 mmHg Lt DPA Pressure 115 mmHg Rt 1st Digit Pressure 136 mmHg Lt 1st Digit Pressure 77 mmHg Rt PT ALBIN Resting 1.07 Lt PT ALBIN Resting 0.85 Rt DP ALBIN Resting 0.9 Lt DP ALBIN Resting 0.79 Rt Digit 1/Arm Index 0.93 Lt Digit 1/Arm Index 0.53 FINDINGS: Right Posterior Tibial Artery Analysis: The posterior tibial waveform is triphasic. Right Dorsalis Pedis Artery Analysis: The dorsalis pedis waveform is triphasic. Right Digits: Normal right digit pressure and waveform. Left Posterior Tibial Artery Analysis: The posterior tibial waveform is triphasic. Left Dorsalis Pedis Artery Analysis: The dorsalis pedis waveform is triphasic. Left Digits: Normal left digit pressure and waveform. - CONCLUSIONS: 1. Ankle-brachial index of 0.9-1.3 is within normal limits in the rightlower extremity. 2. Ankle-brachial index of 0.8-0.9 is consistent with mild occlusivearterial disease in the left lower extremity. ATTESTATION: I have reviewed and interpreted the pertinent images and measurements ofthis study. I attest to the conclusions in the final report that is provided above. Electronically Signed By: Antoni Vaughn MD 02/18/2025 12:14:43 PM CDT us Barron Scott MD IMG US PROCEDURES Final Resu lt * Measure post void residual (01/19/2025 1:08 PM CDT) Rachel Quevedo LPN - 01/19/2025 1:08 PM CDT Measurement of post-voiding residual urine and/or bladder capacity by ultrasound, non-imaging. PVR = 55 mL us Debra Medel ASSEMBLY DEPARTMENT SUPERVISOR NURSING ASSESSMENTS Final Res ult * Hepatitis panel, acute (11/01/2022 4:30 AM CDT) Hep A IgM Nonreactive Nonreactive [facility] Comment: Interpretive Data: If Hep A IgM Ab is reported as Equivocal, a new sample should be drawn in two weeks for testing. Current interpretive data was last revised on 19. Hep B core IgM Nonreactive Nonreactive [facility] Comment: Interpretive Data If HepB Core IgM Ab is reported as Equivocal, a new sample should be drawn in two weeks for testing. Current interpretive data was last revised on 19. Hep C Ab Nonreactive Nonreactive [facility] Comment: Interpretive Data Nonreactive: Antibodies to HCV not detected. Does NOT exclude the possibility of recent exposure to HCV. Equivocal: Equivocal for HCV antibodies. Supplemental molecular testing will be automatically performed to determine infection status in accordance with current CDC screening recommendations. Reactive: Positive for HCV antibodies. This may represent current or past HCV infection. Supplemental molecular testing will be automatically performed to determine current infection status in accordance with current CDC screening recommendations. Interpretive data was last revised on 2019. HepBsAg Nonreactive Nonreactive [facility] Blood 11/01/2022 4:30 AM CDT 11/01/2022 4:44 AM CDT [facility] MICRO[facility]OLOG[facility] - GEN ERAL ORDERABLES Final Result [facility] [id number] Department [place] [address] * CT Chest Abdomen Pelvis W Contrast (11/01/2022 1:22 AM CDT) Anatomical Region Laterality Modality Body N/A Computed Tomogra phy 11/01/2022 1:09 AM CDT Impressions 11/01/2022 3:04 PM CDT . Left thoracostomy tube extending into the oblique fissure with tip at the apex. Small left basal pneumothorax. Right upper lobe 9.5 mm nodule and left upper lobe anterior segmental 1.7 cm subpleural nodule with adjacent opacity. Recommend PET/CT and/or sampling. Moderate upper lobe predominant centrilobular emphysema, small effusions and bibasal consolidative atelectasis. Fractures of the bilateral 2nd through 6th ribs. Left chest wall and axillary emphysema and fat stranding with thickening of the left pectoralis minor probably contusion. Partial inflated aortic catheter mid descending aorta which is low in position. No evidence of significant traumatic injury to the abdomen and pelvis. Increase attenuation gallbladder consistent with inspissated bile or vicarious contrast with pericholecystic fluid. Consider ultrasound. Hepatic lesions possibly cysts or hemangiomas. Consider ultrasound. Colonic diverticulosis. Moderate prostatomegaly with urinary bladder mural thickening probably underdistention. Lumbar disc degeneration with moderate to severe central stenosis at L4-L5 and moderate at L3-L4. Electronically signed by: Lucinda Ureña M.D. Narrative 11/01/2022 3:04 PM CDT EXAMINATION: CT CHEST/ABDOMEN/PELVIS WITH INTRAVENOUS CONTRAST: Date: 11/01/2022 1:05 AM History: rib fractures s/p CPR, concern for flail chest Technique: Transaxial computed tomographic images of the chest, abdomen, and pelvis with 2-D reformatted views were obtained using 100 mL Optiray 350 Comparison: None. Preliminary report was provided by [facility]. Findings: Chest: Normal heart size is seen without pericardial effusion. Atherosclerotic aorta with moderate calcified plaque is present especially arch. Intra-aortic balloon pump catheter is seen partially inflated within the mid distal thoracic aorta with the tip approximately 5.6 cm the superior margin of the aortic arch which is low and could be advanced.. Mild coronary artery calcification is seen. A left IJ central catheter is at the SVC. Enteric tube extends into the stomach. No mediastinal or hilar lymphadenopathy noted. Heterogeneous enlarged thyroid is present. Moderate left anterolateral chest wall emphysema and fat stranding is noted extending into the pectoralis and latissimus dorsi as well as the axilla there is associated ill-defined soft tissue thickening of the left pectoralis minor.. The left thoracostomy tube enters the mid axilla and extending along the fissure with the tip at the posterior apex. A small left and right basilar pneumothorax is present. Small effusions larger left are present with mild dependent bilateral lower lobe basal predominant consolidative atelectasis. A 9.5 mm irregular right upper lobe nodule is seen axial image 51 series 3. There is a 17 x 7 mm left upper lobe anterior segmental subpleural nodule opacity on axial image 41 of series 3. Contiguous crescentic adjacent 3.6 x 0.9 cm opacity seen which could be due to subpleural consolidation. Moderate peripheral predominant centrilobular emphysema and bronchial thickening is present. Mild displaced fractures of bilateral anterior 2nd through 6th ribs is seen.. Abdomen pelvis: A 1.5 cm circumscribed hypoattenuating hepatic segment 4A/2 lesion is seen with average attenuation of 18 Hounsfield units possibly representing a cyst but there is no evidence of laceration. A subcentimeter hyperattenuating segment 6 lesion is too small to characterize. The spleen, pancreas, and adrenals are not remarkable. Diffuse increase gallbladder attenuation is present which could be due to inspissated bile or vicarious contrast excretion. Pericholecystic fluid is present. No biliary distention noted. . No hydronephrosis or nephrolithiasis noted. Moderate calcified nonaneurysmal aorta is present. Right femoral approach partially inflated intra-aortic balloon pump catheter is seen. Left approach venous catheter is seen with tip at the external iliac vein. Nondistended stomach partial fluid-filled stomach with enteric tube at the distal body is noted. Diverticulosis is present worse in the sigmoid colon with mild retained colonic debris..The appendix is unremarkable.. No small bowel obstruction noted. There is no pneumoperitoneum or ascites. A small fat density periumbilical hernia is present. Nondistended bladder with Chicas catheter, contrast, mild nondependent gas, and mural thickening is seen.. Intravesical gas is likely due to Chicas catheter. Enlarged 5 cm prostate with calcifications seen. No suspicious mesenteric or retroperitoneal nodes are seen. L3-L4 disc bulging with small calcified protrusion, short pedicles and facet arthropathy and moderate central stenosis is seen. L4-L5 disc bulge short pedicles marked facet arthropathy and moderate severe central stenosis is present. Procedure Note Lucinda Ureña MD - 11/01/2022 EXAMINATION: CT CHEST/ABDOMEN/PELVIS WITH INTRAVENOUS CONTRAST: Date: 11/01/2022 1:05 AM History: rib fractures s/p CPR, concern for flail chest Technique: Transaxial computed tomographic images of the chest, abdomen, and pelvis with 2-D reformatted views were obtained using 100 mL Optiray 350 Comparison: None. Preliminary report was provided by [facility]. Findings: Chest: Normal heart size is seen without pericardial effusion. Atherosclerotic aorta with moderate calcified plaque is present especially arch. Intra-aortic balloon pump catheter is seen partially inflated within the mid distal thoracic aorta with the tip approximately 5.6 cm the superior margin of the aortic arch which is low and could be advanced.. Mild coronary artery calcification is seen. A left IJ central catheter is at the SVC. Enteric tube extends into the stomach. No mediastinal or hilar lymphadenopathy noted. Heterogeneous enlarged thyroid is present. Moderate left anterolateral chest wall emphysema and fat stranding is noted extending into the pectoralis and latissimus dorsi as well as the axilla there is associated ill-defined soft tissue thickening of the left pectoralis minor.. The left thoracostomy tube enters the mid axilla and extending along the fissure with the tip at the posterior apex. A small left and right basilar pneumothorax is present. Small effusions larger left are present with mild dependent bilateral lower lobe basal predominant consolidative atelectasis. A 9.5 mm irregular right upper lobe nodule is seen axial image 51 series 3. There is a 17 x 7 mm left upper lobe anterior segmental subpleural nodule opacity on axial image 41 of series 3. Contiguous crescentic adjacent 3.6 x 0.9 cm opacity seen which could be due to subpleural consolidation. Moderate peripheral predominant centrilobular emphysema and bronchial thickening is present. Mild displaced fractures of bilateral anterior 2nd through 6th ribs is seen.. Abdomen pelvis: A 1.5 cm circumscribed hypoattenuating hepatic segment 4A/2 lesion is seen with average attenuation of 18 Hounsfield units possibly representing a cyst but there is no evidence of laceration. A subcentimeter hyperattenuating segment 6 lesion is too small to characterize. The spleen, pancreas, and adrenals are not remarkable. Diffuse increase gallbladder attenuation is present which could be due to inspissated bile or vicarious contrast excretion. Pericholecystic fluid is present. No biliary distention noted. . No hydronephrosis or nephrolithiasis noted. Moderate calcified nonaneurysmal aorta is present. Right femoral approach partially inflated intra-aortic balloon pump catheter is seen. Left approach venous catheter is seen with tip at the external iliac vein. Nondistended stomach partial fluid-filled stomach with enteric tube at the distal body is noted. Diverticulosis is present worse in the sigmoid colon with mild retained colonic debris..The appendix is unremarkable.. No small bowel obstruction noted. There is no pneumoperitoneum or ascites. A small fat density periumbilical hernia is present. Nondistended bladder with Chicas catheter, contrast, mild nondependent gas, and mural thickening is seen.. Intravesical gas is likely due to Chicas catheter. Enlarged 5 cm prostate with calcifications seen. No suspicious mesenteric or retroperitoneal nodes are seen. L3-L4 disc bulging with small calcified protrusion, short pedicles and facet arthropathy and moderate central stenosis is seen. L4-L5 disc bulge short pedicles marked facet arthropathy and moderate severe central stenosis is present. IMPRESSION: . Left thoracostomy tube extending into the oblique fissure with tip at the apex. Small left basal pneumothorax. Right upper lobe 9.5 mm nodule and left upper lobe anterior segmental 1.7 cm subpleural nodule with adjacent opacity. Recommend PET/CT and/or sampling. Moderate upper lobe predominant centrilobular emphysema, small effusions and bibasal consolidative atelectasis. Fractures of the bilateral 2nd through 6th ribs. Left chest wall and axillary emphysema and fat stranding with thickening of the left pectoralis minor probably contusion. Partial inflated aortic catheter mid descending aorta which is low in position. No evidence of significant traumatic injury to the abdomen and pelvis. Increase attenuation gallbladder consistent with inspissated bile or vicarious contrast with pericholecystic fluid. Consider ultrasound. Hepatic lesions possibly cysts or hemangiomas. Consider ultrasound. Colonic diverticulosis. Moderate prostatomegaly with urinary bladder mural thickening probably underdistention. Lumbar disc degeneration with moderate to severe central stenosis at L4-L5 and moderate at L3-L4. Electronically signed by: Lucinda Ureña M.D. [facility] IMG CT PROCEDURES Sena l Result from Last 3 Months or Most Recently Relevant to Health Maintenance Insurance MEDICARE [facility] MEDICARE [facility] MEDICARE [facility] MEDICARE [facility] MEDICARE [facility] Advance Directives For more information, please contact: [phone] * Full Code (Latest Code Status on File) Date Activated Date Inactivated Comments 10/31/2022 8:36 PM 11/22/2022 9:24 PM Care Teams Ethanol Operations Manager Relationship Specialty Start Date End Date Chandu Schroeder MD PCP - General Family Medicine 11/02/22 Chandu Schroeder MD Family Medicine 11/02/22
--- OUTSIDE RECORDS SUMMARY | 2025-03-24 10:31 | XMS_ITS | Clinical Summary ---
Author Organization [facility] Address [address] [address] Phone Care Team Providers Care Bulb Tester Name Role Phone Unavailable Primary Care Provider Unavailabl e Social History Tobacco Use Types Packs/Day Years Used Date Smoking Tobacco: Never Assessed Sex and Gender Information Value Date Recorded Sex Assigned at Not on file Legal Sex Male 8:39 AM CDT Gender Identity Not on file Sexual Orientation Not on file Plan of Treatment Health Maintenance Due Date Last Done Comments Hepatitis C Virus (HCV) Screening 1950 TdaP Immunization 1950 Pneumococcal Immunization (5 0+ years) (1 of 1 - PCV) 1998 Zoster Immunization (1 of 2) 1998 Respiratory Syncytial Virus (RSV) Immunization (Adult) (1 - 1-dose 75+ series) 12/14/2023 Influenza Immunization (#1) 2025 SARS-COV-2 Immunization ( - season) 2025 Hepatitis B Immunization Aged Out No longer eligible based on patient's age to complete this topic Human Papillomavirus (HPV) Immunization Aged Out No longer eligible b ased on patient's age to complete this topic Meningococcal Immunization (ACWY) Aged Out No longer eligible based on patient's age to complete this topic Rotavirus Immunization Aged Out No lo nger eligible based on patient's age to complete this topic Insurance MEDICARE [facility]
--- NOTE | 2025-03-24 11:05 | ED.GENADULT ---
HPI - General Adult General Chief complaint: Upper Respiratory Infection Stated complaint: congestion,cough Time Seen by Provider: 03/24/25 09:40 History of Present Illness HPI narrative: 74-year-old male presenting to the emergency department for evaluation for cough congestion that is been ongoing for the last few days. Patient does have history of COPD secondary to a previous smoking history. Patient is no longer a smoker but did have approximately 50 pack year history. Patient does use trilogy at home. Related Data Home Medications ?Medication ?Instructions ?Recorded ?Confirmed ?Last Taken ?Type albuterol sulfate 90 mcg/actuation 1 puff inhalation 4-6XD PRN 10/07/22 03/24/25 Unknown History aerosol inhaler Shortness Of Breath furosemide 20 mg tablet 20 mg PO DAILY 08/21/23 03/24/25 Unknown History metoprolol tartrate 25 mg tablet 12.5 mg PO BID 08/21/23 03/24/25 03/16/25 History pantoprazole 40 mg tablet,delayed 40 mg PO DAILY 08/21/23 03/24/25 Unknown History release potassium chloride 10 mEq 10 meq PO DAILY 08/21/23 03/24/25 Unknown History tablet,extended release trazodone 100 mg tablet 100 mg PO DAILY PRN Sleep 08/21/23 03/24/25 Unknown History atorvastatin 80 mg tablet 80 mg PO DAILY 10/21/23 03/24/25 Unknown History ferrous sulfate 325 mg (65 mg 325 mg PO DAILY 07/17/24 03/24/25 Unknown History iron) tablet clopidogrel 75 mg tablet 75 mg PO DAILY 01/12/25 03/24/25 Unknown History cetirizine 10 mg tablet (24Hour 5 mg PO DAILY PRN allergy symptoms 03/05/25 03/24/25 Unknown History Allergy) Allergies Allergy/AdvReac Type Severity Reaction Status Date / Time No Known Allergies Allergy Verified 03/24/25 09:44 Review of Systems Review of Systems: All systems reviewed & are unremarkable except as noted in HPI and below PMFSH Past Medical History Medical History Crossover toe deformity of left foot Acquired hallux valgus of left foot Benign prostatic hyperplasia Hypertension Cardiac arrest with ventricular fibrillation (10/2022) ST elevation myocardial infarction (STEMI) of inferior wall (10/2022) Status post stent to the LAD complicated by ventricular fibrillation arrest and acute stent thrombosis requiring 2nd emergent PCI. Coronary artery disease COPD with emphysema Hyperlipidemia Surgical History Surgical History History of coronary artery stent placement (10/2022) Stent to the LAD in October 2022. Stent to the in May 2023. Family History Family History Sibling Lethal familial cholestatic and pigmentary liver disease Brain tumor Colon cancer Cancer Hypertension Cerebrovascular accident Pulmonary disease Mother Lethal familial cholestatic and pigmentary liver disease Father Colon cancer Social History Social History Social History: Surrogate medical decision maker: Enmalove Marinelli, spouse. Code status: Full code. Smoking packs per day: 1 Smoking cigarettes per day: 20.0 Years smoked: 40 Smoking pack-years: 40.00 Smoking status: Former smoker Tobacco type: cigarettes Smoking end date: 10/30/22 Alcohol intake: never Substance use: never Substance use type: does not use Do You Feel Safe in your Home?: Yes Lack of Transportation: No Lack of Food: Never True Current Housing: I Have Housing Concerned About Future Housing: No Difficulty Paying Gas/Electric Bills: No Difficulty Paying for Meds: No Currently Unemployed: No Education: High School Diploma/GED Difficulty w/ Childcare or Family Care: No Living arrangements: with family Additional living arrangements comments: Lives with spouse in [place]. Additional occupation/education comments: Retired. Spiritual care concerns: No Exam Narrative: APPEARANCE: Well appearing, no pain, no distress, well-nourished. HEAD: normocephalic, atraumatic. EYES: PERRLA/EOMI, conjunctivae clear. NOSE: Normal no drainage EARS:TMS clear with good light reflex. THROAT: Pharynx clear, no exudate. NECK: Supple. No adenopathy, no masses. RESPIRATORY: Wheezing and congestion bilaterally CARDIOVASCULAR: Regular rate and rhythm without murmurs rubs or gallops. ABDOMINAL: Soft, nontender, nondistended, normal bowel sounds MUSCULOSKELETAL: Moves all extremities. Strength/ROM intact, No edema, No calf tenderness. NEURO: Alert. Cranial nerves II through XII intact. Good gait. Good coordination SKIN: Warm, dry. Normal Color Course Vital Signs Vital signs: Vital Signs Temperature 98.4 F 03/24/25 09:38 Pulse Rate 70 03/24/25 09:38 Respiratory Rate 16 03/24/25 09:38 Blood Pressure 104/71 03/24/25 09:38 Pulse Oximetry 97 03/24/25 09:38 Oxygen Delivery Room Air 03/24/25 09:38 Temperature 98.4 F 03/24/25 09:38 Pulse Rate 85 03/24/25 12:08 Respiratory Rate 18 03/24/25 12:08 Blood Pressure 123/61 03/24/25 12:08 Pulse Oximetry 97 03/24/25 12:08 Oxygen Delivery Room Air 03/24/25 09:52 Medical Decision Making MDM Narrative Medical decision making narrative: 74-year-old male presenting to the emergency department for evaluation for increased cough congestion over the last 3 days. Patient does have expiratory wheeze on exam and a productive cough. Patient was negative for influenza RSV and for COVID. Chest x-ray was concerning for atelectasis versus pneumonia. Due to his presentation clinically I feel the patient does have does have a COPD exacerbation and pneumonia. Patient was treated with 5 mg of nebulized albuterol emergency department. Patient reports he does not feel ill but mainly came in for the cough and congestion. Patient was started on azithromycin and Augmentin the emergency department. Patient will also be provided Tessalon Perles for cough. I did discuss admission for the patient and he states he does feel improved and does prefer to be discharged home. Both patient family updated the results of the workup. All questions concerns were addressed and patient was approved well-appearing at time of discharge. Differential Diagnosis Differential Diagnosis: COVID, RSV, influenza, pneumonia, COPD Vital Signs Vital Signs: Vital Signs Temperature 98.4 F 03/24/25 09:38 Pulse Rate 70 03/24/25 09:38 Respiratory Rate 16 03/24/25 09:38 Blood Pressure 104/71 03/24/25 09:38 Pulse Oximetry 97 03/24/25 09:38 Oxygen Delivery Room Air 03/24/25 09:38 Temperature 98.4 F 03/24/25 09:38 Pulse Rate 85 03/24/25 12:08 Respiratory Rate 18 03/24/25 12:08 Blood Pressure 123/61 03/24/25 12:08 Pulse Oximetry 97 03/24/25 12:08 Oxygen Delivery Room Air 03/24/25 09:52 Lab Data Lab results reviewed: Yes I reviewed the patient's lab results. Labs: Lab Results 03/24/25 Range/Units 09:46 Influenza A (RT-PCR) Negative (Negative) Influenza B (RT-PCR) Negative (Negative) RSV (RT-PCR) Negative (Negative) SARS-CoV-2 RNA (RT-PCR) Negative (Negative) Imaging Data Radiologist's impression: Impressions Chest X-Ray 03/24/25 10:14 IMPRESSION: 1. Small opacities in the mid and lower lungs which represents atelectasis/scarring or infiltrates. If symptoms persist or worsen, consider a short-term follow-up study or additional imaging for further assessment. Discharge Plan Discharge Clinical Impression: COPD (chronic obstructive pulmonary disease), Pneumonia Patient Disposition: Home Condition: Stable Instructions: Antibiotic Form Additional Instructions: Your chest x-ray was concerning for pneumonia. Antibiotic as directed until completed. Tessalon Perles for cough and congestion. Medications as directed. Have close follow-up with your primary care physician. If you have any worsening symptoms and please call or return to the emergency department. Patient Language: Czech Prescriptions: New azithromycin 250 mg tablet See Rx Instructions .ROUTE .COMPLEX Qty: 6 0RF Rx Instructions: For 250 mg dose pack: take 500 mg today (day 1), then 250 mg for 4 days (days 2-5) benzonatate 100 mg capsule 100 mg PO TID PRN (Reason: cough) Qty: 14 0RF albuterol sulfate 90 mcg/actuation HFA aerosol inhaler 1 puff inhalation QID Qty: 6.7 0RF amoxicillin-pot clavulanate 875-125 mg tablet 1 tablet PO Q12H 7 Days Qty: 14 0RF No Action albuterol sulfate 90 mcg/actuation HFA aerosol inhaler 1 puff INHALATION 4-6XD PRN (Reason: Shortness Of Breath) furosemide 20 mg tablet 20 mg PO DAILY metoprolol tartrate 25 mg tablet 12.5 mg PO BID pantoprazole 40 mg tablet,delayed release (DR/EC) 40 mg PO DAILY potassium chloride 10 mEq tablet extended release 10 meq PO DAILY trazodone 100 mg tablet 100 mg PO DAILY PRN (Reason: Sleep) fluticasone fur. 100 mcg-umeclid 62.5 mcg-vilant 25 mcg inhalat.powder 100-62.5-25 mcg blister with device 1 inh inhalation DAILY 0RF hydrocodone-acetaminophen 5-325 mg tablet 1 tablet PO Q6H PRN (Reason: pain) Qty: 20 0RF ferrous sulfate 325 mg (65 mg iron) tablet 325 mg PO DAILY clopidogrel 75 mg tablet 75 mg PO DAILY atorvastatin 80 mg tablet 80 mg PO DAILY cetirizine [24Hour Allergy] 10 mg tablet 5 mg PO DAILY PRN (Reason: allergy symptoms) sennosides-docusate sodium [Senna with Docusate Sodium] 8.6-50 mg tablet 1 tab-cap PO BID PRN (Reason: constipation) Qty: 20 1RF polyethylene glycol 3350 17 gram powder in packet 17 g PO DAILY PRN (Reason: constipation) Qty: 14 1RF tamsulosin 0.4 mg Capsule 0.4 mg PO QPM@1800 Qty: 30 0RF Thera M Plus (ferrous fumarat) 9 mg iron-400 mcg Tablet 1 tablet PO QAM Qty: 30 0RF aspirin [Children's Aspirin] 81 mg Tablet,Chewable 81 mg PO DAILY@0800 Qty: 30 0RF Follow-up/Referrals: Chandu Schroeder MD [Primary Care Provider, Family Practice]
[2025-03-24] MEDS: AZITHROMYCIN 250 MG TABLET 500 MG PO (11:12)
[2025-03-24] MEDS: BENZONATATE 100 MG CAPSULE 200 MG PO (11:12)
[2025-03-24] MEDS: ALBUTEROL SULFATE NEB 2.5 MG/3 ML INH 5 MG INHALATION (11:19)
--- OUTSIDE RECORDS SUMMARY | 2025-03-24 12:24 | XMS_ITS | Clinical Summary ---
Author Organization [facility] Hi alegre Jayme Address [address] [place] [address] Care Team Providers Care Salvage Machine Operator Name Role Phone Chandu Schroeder MD Primary [...] ipratropium bromide (ATROVENT) 42 mcg (0.06 %) [place], Non-Aerosol USE 2 SPRAYS IN EACH NOSTRIL [...] st Contact Info) Description 04/13/2025 11:45 AM HOG DROPPER Office Visit [facility] Oncology and Hematology - [place] [address] [facility] [address] [place] [address] Juanpablo Lima MD [address] [facility] [address] [place] [address] Health Maintenance Due Date Last Done Comments DTAP/TDAP/TD VACCINES (1 - Tdap) 12/14/1969 PNEUMOCOCCAL VACCINE 50+ YEARS (1 of 2 - PCV) 12/13/18 66 ZOSTER VACCINE (1 of 2) 1998 RSV VACCINE (60+ or ) (1 - 1-dose 75+ series) 12/14/2023 INFLUENZA VACCINE (#1) 2024 Insurance MEDICARE PART A AND B [facility] [id number] Care Teams Salvage Machine Operator Relationship Specialty Start Date End Date Chandu Schroeder MD [address] [place] [address] PCP - General Family Practice 10/31/23
--- OUTSIDE RECORDS SUMMARY | 2025-03-24 12:24 | XMS_ITS | Clinical Summary ---
Author Organization [facility] Address [address] [place] [address] Care Team Providers Care Independent Insurance Adjuster Name Role Phone Chandu Schroeder MD Primary Care Provider [phone] Chandu Schroeder MD Unavailable Allergies No known active allergies Medications fluticasone-umec lidin-vilanter (Trelegy Ellipta) 100-62.5-25 mcg inhaler Inhale 1 puff daily Active multivit svxxvhgy-pyri-TE -calcium (THERA-M) 9 mg iron-400 mcg tablet [...] Diagnosed Date Coronary artery disease invo lving [place] coronary artery of [place] heart without angina pectoris 05/09/[address] elevation myocardial infarction Cardiogenic shock 10/31/2022 Encounters Date Type Department Care Team Description 02/18/2025 8:46 AM CDT - 02/18/2025 11:59 PM CDT Hospital Encounter [facility] Cardiac Testing [address] [place] [address] Peripheral vascular disease, unspecified; Pain in left foot Discharge Disposition: Discharge to home or self care 01/19/2025 1:00 PM CDT Office Visit [facility] - [facility] Medicine Urology [address] [facility] [address] [place] [address] Debra Medel NP Benign prostatic [...] than three times a week 11/01/2022 Attends [employer] Not on file 11/01 Active Member [...] place to sleep or slept in a senior care (including now)? No 11/01/2022 Personal Safety Answer [...] Comments Blood Pressure 118/60 07/23/2024 11:44 AM MANAGER HELPDESK Pulse 60 07/23/2024 11:44 AM MANAGER [employer]PDESK Temperature 36.7 C (98 F) 01/24/2024 1:07 PM CDT Respiratory Rate 18 06/21/2023 1:25 PM MANAGER HELPDESK Oxygen Saturation 98% 07/23/2024 11:44 AM MANAGER HELPDESK Inhaled Oxygen Concentration - - Weight 84.8 kg (187 lb) 07/23/2024 11:44 AM MANAGER HELPDESK Height 175.3 cm (5' 9) 07/23/2024 11:44 AM MANAGER HELPDESK Body Mass Index 27.62 07/23/2024 11:44 AM MANAGER HELPDESK Plan of Treatment Health Maintenance Due Date [...] Completed 11/01/2022 Medical Devices Implanted Type Area Shipyard Painting Supervisor Device Identifier Shelf Expiration Date Model / Serial / Lot Medtronic Card Vasc Surgery 2.75 X 12mm [place] Garza Rx Coronary Stent [id number] - [id number] Implanted:Qty: 1 on 06/21/2023 by David Mcclure MD at [facility] [employer] Card Vasc Surgery 03/18/2026 [id number] / / [id number] Web[employer] Device Vascular Closure Femoral Artery Bioabsorbable Dual Method Vascade 6-7fr Collagen [id number] - [id number] Implanted:Qty: 1 on 06/21/2023 by David Mcclure MD at [facility] [employer] 02/14/2025 [id number] / / [id number] Procedures Procedure Name Priority Date/Time Associated [...] Study Date: 02/18/2025 9:06:00 AM Sex: M Director Athletic: Kedar Baig [facility] RVT Ref Provider: BARRON SCOTT Quality: Adequate Order Provider: BARRON SCOTT PROCEDURES: Arterial Report: Ankle - Brachial Index Doppler exam. INDICATIONS: I73.9 Peripheral vascular disease, unspecified and M79.672 Pain in left foot. MEASUREMENTS: Right Value Left Value Rt Brachial Pressure 142 mmHg Lt Brachial Pressure 146 mmHg Rt LABORER WOOD PRESERVING PLANT Pressure 156 mmHg Lt LABORER [employer]ING [employer]ANT Pressure 124 mmHg Rt DPA Pressure 131 [...] Study Date: 02/18/2025 9:06:00 AM Sex: M Director Athletic: Kedar Baig [facility] RVT Ref Provider: BARRON SCOTT Quality: Adequate Order Provider: BARRON SCOTT PROCEDURES: Arterial Report: Ankle - Brachial Index Doppler exam. INDICATIONS: I73.9 Peripheral vascular disease, unspecified and M79.672 Pain in leftfoot. MEASUREMENTS: Right Value Left Value Rt Brachial Pressure 142 mmHg Lt Brachial Pressure 146 mmHg Rt LABORER [employer]ING [employer]ANT Pressure 156 mmHg Lt LABORER [employer]OD [employer]ING [employer]ANT Pressure 124 mmHg Rt DPA Pressure 131 [...] PVR = 55 mL us Debra Medel BLACK [facility] ROLLER NURSING ASSESSMENTS Final Res ult * Hepatitis panel, acute (11/01/2022 4:30 AM CDT) Hep A IgM Nonreactive Nonreactive [facility] Comment: Interpretive Data: If Hep A IgM Ab is reported as Equivocal, a new sample should be drawn in two weeks for testing. Current interpretive data was last revised on 19. Hep B core IgM Nonreactive Nonreactive [facility] Comment: Interpretive Data If HepB Core IgM Ab is reported as Equivocal, a new sample should be drawn in two weeks for testing. Current interpretive data was last revised on 19. Hep C Ab Nonreactive Nonreactive [facility] Comment: Interpretive Data Nonreactive: Antibodies to HCV [...] GEN ERAL ORDERABLES Final Result AMELIA BACA [address] Department [place] [address] * CT Chest Abdomen Pelvis W Contrast [...] Comparison: None. Preliminary report was provided by [facility]. Findings: Chest: Normal heart size [...] Comparison: None. Preliminary report was provided by [facility]. Findings: Chest: Normal heart size [...] Recently Relevant to Health Maintenance Insurance MEDICARE [facility] MEDICARE [facility] MEDICARE [facility] MEDICARE [facility] MEDICARE [facility] Advance Directives For more information, please contact: [phone] * Full Code (Latest Code Status on File) Date Activated Date Inactivated Comments 10/31/2022 8:36 PM 11/22/2022 9:24 PM Care Teams Independent Insurance Adjuster Relationship Specialty Start Date End Date Chandu Schroeder MD PCP - General Family Medicine 11/02/22 Chandu Schroeder MD Family Medicine 11/02/22
--- OUTSIDE RECORDS SUMMARY | 2025-03-24 12:24 | XMS_ITS | Clinical Summary ---
Author Organization [facility] Address [address] [address] Phone Care Team Providers Care Access Clinician Name Role Phone Unavailable Primary Care Provider [...] age to complete this topic Insurance MEDICARE [facility]
== END 2025-03-24 12:09 | disposition home or self-care (01) ==
PROVIDERS: Emergency Provider Emergency Medicine; PCP Family Medicine
DX: J18.9 Pneumonia, unspecified organism (principal); J43.9 Emphysema, unspecified; J44.1 Chronic obstructive pulmonary disease with (acute) exacerbation; Z20.822 Contact with and (suspected) exposure to COVID-19; I10 Essential (primary) hypertension; I25.2 Old myocardial infarction; I25.10 Atherosclerotic heart disease of native coronary artery without angina pectoris; N40.0 Benign prostatic hyperplasia without lower urinary tract symptoms; Z95.5 Presence of coronary angioplasty implant and graft; Z87.891 Personal history of nicotine dependence; Z79.02 Long term (current) use of antithrombotics/antiplatelets; Z79.899 Other long term (current) drug therapy; Z79.82 Long term (current) use of aspirin
CPT/HCPCS: 71045; 87637; 94640; 99283; A9270; J7512

== ENCOUNTER 2025-04-06 09:33 | Outpatient (CLI) | payer MEDICARE, SELFPAY ==
--- NOTE | ~2025-04-06 | CT_ITS ---
EXAMINATION:CT diagnostic chest w con DATE: 04/06/2025 09:57 INDICATION: Lung nodule TECHNIQUE: Computed tomography (CT) of the chest was performed with intravenous contrast. The dose-length product (DLP) was 263.06 mGy-cm. COMPARISON: None. FINDINGS: Right upper lobe nodule measuring 8 mm slightly increased in size on today's exam, seen on image 36 series 4. Additionally, a 9 mm slightly spiculated nodule in the subpleural region of the right upper lobe image 56 series 4 is new. 1.5 cm mixed groundglass nodule posterior segment right lower lobe image 83 series 4 is new. Possible new 5 mm nodule left apical region image 34 series 4. No gross interval change in the remainder the exam. IMPRESSION: 1. Numerous new nodules as above which could be associated with inflammatory or infectious process, however malignant metastatic process is not excluded. Correlate with either PET CT or short interval follow-up chest CT within the next 3 months. 2. Otherwise stable exam. Reviewed, dictated and finalized at location A. OR OPERATOR IMPRESSION: 1. Numerous new nodules as above which could be associated with inflammatory or infectious process, however malignant metastatic process is not excluded. Desi elate with either PET CT or short interval follow-up chest CT within the next 3 months. 2. Otherwise stable exam.
--- OUTSIDE RECORDS SUMMARY | 2025-04-06 10:13 | XMS_ITS | Clinical Summary ---
Author Organization [facility] Hi alegre Jayme Address [address] [place] [address] Care Team Providers Care Ream Cutter Name Role Phone Chandu Schroeder MD Primary [...] ipratropium bromide (ATROVENT) 42 mcg (0.06 %) [place], Non-Aerosol USE 2 SPRAYS IN EACH NOSTRIL [...] Smoking Tobacco: Former Cigarettes 1 55 1 968 - 2022 Smokeless Tobacco: Never Tobacco Cessation:Counseling Given: [...] Care Team (Late st Contact Info) Description 04/20/2025 4:30 PM FURNACE CLERK Telephone Check Up [facility] Oncology and Hematology - [place] [address] [facility] [address] [place] [address] Juanpablo Lima MD [address] [facility] [address] [place] [address] Health Maintenance Due Date Last Done Comments DTAP/TDAP/TD VACCINES (1 - Tdap) 12/14/1969 PNEUMOCOCCAL VACCINE 50+ YEARS (1 of 2 - PCV) 12/13/18 66 ZOSTER VACCINE (1 of 2) 1998 RSV VACCINE (60+ or ) (1 - 1-dose 75+ series) 12/14/2023 INFLUENZA VACCINE (#1) 2024 Insurance MEDICARE PART A AND B [facility] [id number] Care Teams Ream Cutter Relationship Specialty Start Date End Date Chandu Schroeder MD [address] [place] [address] PCP - General Family Practice 10/31/23
--- OUTSIDE RECORDS SUMMARY | 2025-04-06 10:13 | XMS_ITS | Clinical Summary ---
Author Organization [facility] Address [address] [address] Phone Care Team Providers Care Machine Tech Name Role Phone Unavailable Primary Care Provider [...] age to complete this topic Insurance MEDICARE [facility]
--- OUTSIDE RECORDS SUMMARY | 2025-04-06 10:13 | XMS_ITS | Clinical Summary ---
Author Organization [facility] Address [address] [place] [address] Care Team Providers Care Compound Finisher Name Role Phone Chandu Schroeder MD Primary Care Provider [phone] Chandu Schroeder MD Unavailable [phone] Allergies No known active allergies Medications fluticasone-umec lidin-vilanter (Trelegy Ellipta) 100-62.5-25 mcg inhaler Inhale 1 puff daily Active multivit xmdvxrzg-ueid-LF -calcium (THERA-M) 9 mg iron-400 mcg tablet [...] Diagnosed Date Coronary artery disease invo lving solomon coronary artery of solomon heart without angina pectoris 05/09/[address] elevation myocardial infarction Cardiogenic shock 10/31/2022 Encounters Date Type Department Care Team Description 02/18/2025 8:46 AM CDT - 02/18/2025 11:59 PM CDT Hospital Encounter [facility] Cardiac Testing [address] [place] [address] Peripheral vascular disease, unspecified; Pain in left foot Discharge Disposition: Discharge to home or self care 01/19/2025 1:00 PM CDT Office Visit [facility]) - [facility] Medicine Urology [id number] [place] [address] Debra Medel NP Benign prostatic [...] Comments Blood Pressure 118/60 07/23/2024 11:44 AM [employer] Pulse 60 07/23/2024 11:44 AM [employer] Temperature 36.7 C (98 F) 01/24/2024 1:07 PM CDT Respiratory Rate 18 06/21/2023 1:25 PM [employer] Oxygen Saturation 98% 07/23/2024 11:44 AM [employer]IVER Inhaled Oxygen Concentration - - Weight 84.8 kg (187 lb) 07/23/2024 11:44 AM [employer] Height 175.3 cm (5' 9) 07/23/2024 11:44 AM [employer] Body Mass Index 27.62 07/23/2024 11:44 AM [employer] DRIVER Plan of Treatment Health Maintenance Due Date [...] Completed 11/01/2022 Medical Devices Implanted Type Area Normalizer Device Identifier Shelf Expiration Date Model / Serial / Lot Medtronic Powderhook Vasc Surgery 2.75 X 12mm [place] Rx Coronary Stent [id number] - [id number] Implanted:Qty: 1 on 06/21/2023 by David Mcclure MD at [facility] [employer] Card Vasc Surgery 03/18/2026 [id number] / / [id number] Device Vascular Closure Femoral Artery Bioabsorbable Dual Method Vascade 6-7fr Collagen [id number] - [id number] Implanted:Qty: 1 on 06/21/2023 by David Mcclure MD at [facility] [employer] 02/14/2025 [id number] / / [id number] Procedures Procedure Name Priority Date/Time Associated [...] Study Date: 02/18/2025 9:06:00 AM Sex: M Salvage Winder: Kedar Baig [facility] [[email or web address] RVT Ref Provider: BARRON SCOTT Quality: Adequate Order Provider: BARRON SCOTT PROCEDURES: Arterial Report: Ankle - Brachial Index Doppler exam. INDICATIONS: I73.9 Peripheral vascular disease, unspecified and M79.672 Pain in left foot. MEASUREMENTS: Right Value Left Value Rt Brachial Pressure 142 mmHg Lt Brachial Pressure 146 mmHg Rt AUTOMOTIVE ELECTRICAL HELPER Pressure 156 mmHg Lt AUTOMOTIVE ELECTRICAL HELPER Pressure 124 mmHg Rt DPA Pressure 131 [...] Study Date: 02/18/2025 9:06:00 AM Sex: M Salvage Winder: Kedar Baig [facility] [[email or web address]] RVT Ref Provider: BARRON SCOTT Quality: Adequate Order Provider: BARRON SCOTT PROCEDURES: Arterial Report: Ankle - Brachial Index Doppler exam. INDICATIONS: I73.9 Peripheral vascular disease, unspecified and M79.672 Pain in leftfoot. MEASUREMENTS: Right Value Left Value Rt Brachial Pressure 142 mmHg Lt Brachial Pressure 146 mmHg Rt AUTOMOTIVE ELECTRICAL HELPER Pressure 156 mmHg Lt AUTOMOTIVE ELECTRICAL HELPER Pressure 124 mmHg Rt DPA Pressure 131 [...] PVR = 55 mL us Debra Medel NP NURSING ASSESSMENTS Final Res ult * Hepatitis panel, acute (11/01/2022 4:30 AM CDT) Hep A IgM Nonreactive Nonreactive [facility] Comment: Interpretive Data: If Hep A IgM Ab is reported as Equivocal, a new sample should be drawn in two weeks for testing. Current interpretive data was last revised on 19. Hep B core IgM Nonreactive Nonreactive [facility] Comment: Interpretive Data If HepB Core IgM Ab is reported as Equivocal, a new sample should be drawn in two weeks for testing. Current interpretive data was last revised on 19. Hep C Ab Nonreactive Nonreactive [facility] Comment: Interpretive Data Nonreactive: Antibodies to HCV [...] GEN ERAL ORDERABLES Final Result AMELIA [facility]ACA [id number] Department [place] [address] * CT Chest Abdomen Pelvis W Contrast [...] Comparison: None. Preliminary report was provided by [facility]. Findings: Chest: Normal heart size [...] Comparison: None. Preliminary report was provided by [facility]. Findings: Chest: Normal heart size [...] Recently Relevant to Health Maintenance Insurance MEDICARE [facility] Address: [address] [address] [place] [address] [facility]IC[facility] MEDICARE [facility]ICARE [facility] Advance Directives For more information, please contact: [phone] * Full Code (Latest Code Status on File) Date Activated Date Inactivated Comments 10/31/2022 8:36 PM 11/22/2022 9:24 PM Care Teams Compound Finisher Relationship Specialty Start Date End Date Chandu Schroeder MD PCP - General Family Medicine 11/02/22 Chandu Schroeder MD Family Medicine 11/02/22
== END 2025-04-06 09:34 | disposition home or self-care (01) ==
PROVIDERS: PCP Family Medicine; Visit Provider Internal Medicine Hematology & Oncology
DX: R91.8 Other nonspecific abnormal finding of lung field (principal); C34.11 Malignant neoplasm of upper lobe, right bronchus or lung
CPT/HCPCS: 71260; Q9967

== ENCOUNTER 2025-04-22 12:49 | Emergency (ER) | payer MEDICARE, SELFPAY ==
--- NOTE | 2025-04-22 12:57 | ED.UPPEXIN ---
HPI - Extremity Injury (Upper) General Chief Complaint: Wound/Laceration Stated Complaint: Fall / RT Hand Injury Time Seen by Provider: 04/22/25 13:05 Source: patient Mode of arrival: ambulatory Limitations: no limitations History of Present Illness HPI narrative: Hoang is a 74 year old male patient presenting to the clinic today with complaints fall causing skin tear to his right forearm and elbow. He reports he was in the kitchen and slipped and his arm hit the island as he was trying to prevent his fall. Has a large skin tear to the dorsal forearm and to the elbow. Bleeding is controlled. Tetanus is up-to-date per patient. Denies hitting his head or any loss of consciousness. Denies any neck or back pain. Related Data Home Medications ?Medication ?Instructions ?Recorded ?Confirmed ?Last Taken ?Type albuterol sulfate 90 mcg/actuation 1 puff inhalation 4-6XD PRN 10/07/22 04/22/25 Unknown History aerosol inhaler Shortness Of Breath furosemide 20 mg tablet 20 mg PO DAILY 08/21/23 04/22/25 Unknown History metoprolol tartrate 25 mg tablet 12.5 mg PO BID 08/21/23 04/22/25 03/16/25 History pantoprazole 40 mg tablet,delayed 40 mg PO DAILY 08/21/23 04/22/25 Unknown History release potassium chloride 10 mEq 10 meq PO DAILY 08/21/23 04/22/25 Unknown History tablet,extended release trazodone 100 mg tablet 100 mg PO DAILY PRN Sleep 08/21/23 04/22/25 Unknown History atorvastatin 80 mg tablet 80 mg PO DAILY 10/21/23 04/22/25 Unknown History ferrous sulfate 325 mg (65 mg 325 mg PO DAILY 07/17/24 04/22/25 Unknown History iron) tablet clopidogrel 75 mg tablet 75 mg PO DAILY 01/12/25 04/22/25 Unknown History cetirizine 10 mg tablet (24Hour 5 mg PO DAILY PRN allergy symptoms 03/05/25 04/22/25 Unknown History Allergy) Allergies Allergy/AdvReac Type Severity Reaction Status Date / Time No Known Allergies Allergy Verified 04/22/25 13:03 Review of Systems Review of Systems: Pertinent positives per HPI. Patient denies any fever, chills, rash, headache, visual changes, dizziness, cough, runny nose, sore throat, shortness of breath, chest pain, palpitations, nausea, vomiting, diarrhea, constipation, abdominal pain, or any urinary issues. [facility] Past Medical History Medical History Crossover toe deformity of left foot Acquired hallux valgus of left foot Benign prostatic hyperplasia Hypertension Cardiac arrest with ventricular fibrillation (10/2022) ST elevation myocardial infarction (STEMI) of inferior wall (10/2022) Status post stent to the LAD complicated by ventricular fibrillation arrest and acute stent thrombosis requiring 2nd emergent PCI. Coronary artery disease COPD with emphysema Hyperlipidemia Surgical History Surgical History History of coronary artery stent placement (10/2022) Stent to the LAD in October 2022. Stent to the in May 2023. Family History Family History Sibling Lethal familial cholestatic and pigmentary liver disease Brain tumor Colon cancer Cancer Hypertension Cerebrovascular accident Pulmonary disease Mother Lethal familial cholestatic and pigmentary liver disease Father Colon cancer Social History Social History Social History: Surrogate medical decision maker: Enma Darrynwil, spouse. Code status: Full code. Smoking packs per day: 1 Smoking cigarettes per day: 20.0 Years smoked: 40 Smoking pack-years: 40.00 Smoking status: Former smoker Tobacco type: cigarettes Smoking end date: 10/30/22 Alcohol intake: never Substance use: never Substance use type: does not use Lack of Transportation: No Lack of Food: Never True Current Housing: I Have Housing Concerned About Future Housing: No Difficulty Paying Gas/Electric Bills: No Difficulty Paying for Meds: No Currently Unemployed: No Education: High School Diploma/GED Difficulty w/ Childcare or Family Care: No Living arrangements: with family Additional living arrangements comments: Lives with spouse in [place]. Additional occupation/education comments: Retired. Spiritual care concerns: No Comments At the time of my signature, I reviewed and agree with the nursing past medical, surgical, social, and family history. There is no relevant family history pertinent to the patient complaint. Exam Narrative: General: Well-developed, well nourished, in no apparent distress Head: Normocephalic, atraumatic. Cardio: Regular rate and rhythm, s1 and s2 normal, no murmur appreciated. Resp: Clear to auscultation bilaterally, no rhonchi, rales, wheezing or rubs. Integumentary: [place], warm, and dry, 6cm skin tear to the right volar forearm and 2cm skin tear to the left elbow. Bleeding controlled. Course Course Emergency Course: Portions of this record may have been created with voice recognition software. Level of Care: Express Care Visit Vital Signs Vital signs: Vital Signs Temperature 36.6 C 04/22/25 13:01 Pulse Rate 69 04/22/25 13:01 Respiratory Rate 18 04/22/25 13:01 Blood Pressure 96/55 L 04/22/25 13:01 Pulse Oximetry 97 04/22/25 13:01 Oxygen Delivery Room Air 04/22/25 13:01 Temperature 36.6 C 04/22/25 13:01 Pulse Rate 69 04/22/25 13:01 Respiratory Rate 18 04/22/25 13:01 Blood Pressure 96/55 L 04/22/25 13:01 Pulse Oximetry 97 04/22/25 13:01 Oxygen Delivery Room Air 04/22/25 13:01 Vital signs reviewed Procedures Laceration Laceration 1: Date: 04/22/25 Site: upper extremity (right forearm, right elbow) Side (If applicable): right Size (cm): 8 Description: linear and other (skin tear) Depth: simple, single layer ====== Skin Level ====== ====== Subcutaneous Layer ====== ====== Muscle Layer ====== ====== Tendon Layer ====== Dressing: Skin tear to the right forearm and to the right elbow. Wound was cleansed using antiseptic wound wash and patted dry was sterile 4x4s. Steri-Strips were placed bringing the wound edges well approximate. Patient tolerated well. Dressing was applied. MDM - Extremity Injury (Upper) MDM Narrative Medical decision making narrative: At the time of visit patient is resting comfortably on the exam table. Patient appears to be nontoxic. Complaints fall causing skin tear to his right forearm and elbow. He reports he was in the kitchen and slipped and his arm hit the island as he was trying to prevent his fall. Has a large skin tear to the dorsal forearm and to the elbow. Bleeding is controlled. Tetanus is up-to-date per patient. Denies hitting his head or any loss of consciousness. Denies any neck or back pain. 6cm skin tear to the right volar forearm and 2cm skin tear to the left elbow. Bleeding controlled. Procedure: Laceration repair was performed in the clinic. Patient has skin tear to the right forearm and to the right elbow. Wound was cleansed using antiseptic wound wash and patted dry was sterile 4x4s. Steri-Strips were placed bringing the wound edges well approximate. Patient tolerated well. Dressing was applied. Plan: Skin tear repaired using Steri-Strips in the clinic today. Patient's tetanus is up-to-date. Wound care instructions were given to the patient thumb. Supportive measures were discussed with the patient and they voiced understanding discharge instructions and agrees to treatment plan. Return precautions reviewed Differential Diagnosis Differential diagnosis: Likely other (skin tear, laceration, skin avulsion) Discharge Plan Discharge Clinical Impression: Skin tear of forearm without complication, Skin tear of elbow without complication Patient Disposition: Home Condition: Stable Instructions: Antibiotic Form, Skin Tear (ED) Additional Instructions: Leave bandage on for 24 hours then may remove and nonstick covering as needed. Keep wound clean and dry Do not allow the Steri-Strips to get wet. Steri-Strips will fall off on their own-may trim them when they start to peel but do not remove them. Watch for signs and symptoms of infection-fever not controlled by Tylenol Motrin, redness, streaking, swelling, purulent discharge, or increase in pain. Follow up with your PCP in 3 days for wound check Patient Language: Wolof Prescriptions: No Action albuterol sulfate 90 mcg/actuation HFA aerosol inhaler 1 puff INHALATION 4-6XD PRN (Reason: Shortness Of Breath) furosemide 20 mg tablet 20 mg PO DAILY metoprolol tartrate 25 mg tablet 12.5 mg PO BID pantoprazole 40 mg tablet,delayed release (DR/EC) 40 mg PO DAILY potassium chloride 10 mEq tablet extended release 10 meq PO DAILY trazodone 100 mg tablet 100 mg PO DAILY PRN (Reason: Sleep) fluticasone fur. 100 mcg-umeclid 62.5 mcg-vilant 25 mcg inhalat.powder 100-62.5-25 mcg blister with device 1 inh inhalation DAILY 0RF ferrous sulfate 325 mg (65 mg iron) tablet 325 mg PO DAILY clopidogrel 75 mg tablet 75 mg PO DAILY atorvastatin 80 mg tablet 80 mg PO DAILY cetirizine [24Hour Allergy] 10 mg tablet 5 mg PO DAILY PRN (Reason: allergy symptoms) albuterol sulfate 90 mcg/actuation HFA aerosol inhaler 1 puff inhalation QID Qty: 6.7 0RF tamsulosin 0.4 mg Capsule 0.4 mg PO QPM@1800 Qty: 30 0RF Thera M Plus (ferrous fumarat) 9 mg iron-400 mcg Tablet 1 tablet PO QAM Qty: 30 0RF aspirin [Children's Aspirin] 81 mg Tablet,Chewable 81 mg PO DAILY@0800 Qty: 30 0RF Follow-up/Referrals: Chandu Schroeder MD [Primary Care Provider, [facility]] Time of Disposition: 13:26 Quality NIHSS Nursing Documentation ED NIHSS nursing documentation: reviewed/agree
[2025-04-22 13:01] VITALS: BP 96/55; PULSE 69; RESP 18; TEMP 36.6; O2SAT 97
== END 2025-04-22 13:37 | disposition home or self-care (01) ==
PROVIDERS: Emergency Provider Nurse Practitioner Family; PCP Family Medicine
DX: S51.811A Laceration without foreign body of right forearm, initial encounter (principal); S51.011A Laceration without foreign body of right elbow, initial encounter; I10 Essential (primary) hypertension; I25.10 Atherosclerotic heart disease of native coronary artery without angina pectoris; E78.5 Hyperlipidemia, unspecified; J44.9 Chronic obstructive pulmonary disease, unspecified; Z79.899 Other long term (current) drug therapy; Z87.891 Personal history of nicotine dependence; W01.0XXA Fall on same level from slipping, tripping and stumbling without subsequent striking against object, initial encounter; Y92.000 Kitchen of unspecified non-institutional (private) residence as the place of occurrence of the external cause
CPT/HCPCS: 12004; 99212; G0463